=== PATIENT | female | born 1955 | race Two or more races ===

== ENCOUNTER → 2016-09-23 | Outpatient (REF) | payer MEDICARE ==
[~2016-09-23] MED LIST: FLUT1SPR2; GABA600T PO; GLIP10TA6 PO; LISI-542 PO; MUPI2OI TOP; TOUJ1.2I SQ
== END ==
LOC: M SFHCLERA 09:10
PROVIDERS: ATTEND Family Medicine
DX: L98.499 Non-pressure chronic ulcer of skin of other sites with unspecified severity (principal); E11.42 Type 2 diabetes mellitus with diabetic polyneuropathy
CPT/HCPCS: 87070; 87077; G0463

== ENCOUNTER 2016-09-28 14:28 | Emergency (ER) | payer MEDICARE ==
[~2016-09-28] VITALS: Ht 165.1 cm; Wt 90.3 kg
[2016-09-28 14:51] VITALS: BP 147/75
[2016-09-28] MEDS ORDERED: MUPI2OI TOP (14:56)
[2016-09-28] MEDS ORDERED: LISI-542 PO (14:56)
[2016-09-28] MEDS ORDERED: FLUT1SPR2 (14:56)
[2016-09-28] MEDS ORDERED: GABA600T PO (14:56)
[2016-09-28] MEDS ORDERED: GLIP10TA6 PO (14:56)
[2016-09-28] MEDS ORDERED: TOUJ1.2I SQ (14:56)
[2016-09-28 15:00] VITALS: BP 133/57
[2016-09-28] MEDS ORDERED: NITROGLYCERIN 2% OINT 1 GM *U/D* PKT TOP ONE (15:00)
[2016-09-28] MEDS ORDERED: ONDANSETRON 4MG/2ML VIAL (J2405) IV ONE (15:00)
--- NOTE | 2016-09-28 15:46 | REP ---
Portable chest: Single view. History: Chest pain Comparison study: No comparison study. Findings: EKG monitoring electrodes overlie the chest. Oxygen tubing is seen. The lungs are well inflated and clear. Heart size is normal. Pulmonary vasculature is not increased. No significant bony abnormality is seen. Impression: No active disease. Signed by Juan Richardson MD 09/28/2016 03:37 P
[2016-09-28] MEDS: fentaNYL 100 MCG/2 ML INJECTION (J3010) IV PRN ×2 (15:48→16:05)
[2016-09-28] MEDS ORDERED: HYDROmorphone HCL 1 MG/ML SYRINGE (J1170) IV ONE (16:15)
[2016-09-28 16:16] LABS: BASO % 0.4 % (0.0-1.0); EOS # 0.1 K/mm3 (0.0-0.50); EOS % 1.4 % (0.0-3.0); LARGE UNSTAINED CELL # 0.1 K/mm3 (0.0-0.4); LARGE UNSTAINED CELL % 1.3 % (0.0-4.0); LYMPH # 2.7 K/mm3 (1.5-4.5); LYMPH % 24.9 % (24.0-44.0); MEAN CORPUSCULAR HEMOGLOBIN 30.3 pg (27.0-33.0); MEAN CORPUSCULAR HGB CONC 33.2 g/dl (32.0-36.5); MEAN CORPUSCULAR VOLUME 91.2 fl (80.0-96.0); MONO # 0.3 K/mm3 (0.0-0.8); MONO % 3.2 % (0.0-5.0); NEUTROPHILS # 7.1 K/mm3 (1.8-7.7); PLATELET COUNT, AUTOMATED 208 k/mm3 (150-450); RED CELL DISTRIBUTION WIDTH 13.8 % (11.5-14.5); WHITE BLOOD COUNT 10.2 K/mm3 (4.0-10.0)
[2016-09-28 16:40] LABS: ALBUMIN 3.2 GM/DL (3.2-5.2); ALBUMIN/GLOBULIN RATIO 0.94 (1.00-1.93); BILIRUBIN,DIRECT 0.1 MG/DL (0.0-0.2); BILIRUBIN,TOTAL 0.3 MG/DL (0.2-1.0); CALCIUM LEVEL 8.5 MG/DL (8.8-10.2); CREATININE FOR GFR 1.07 MG/DL (0.55-1.02); GLOMERULAR FILTRATION RATE 55.5 (>45); POTASSIUM SERUM 5.1 MEQ/L (3.5-5.1); TOTAL PROTEIN 6.6 GM/DL (6.4-8.2)
[2016-09-28] MEDS ORDERED: CLOPIDOGREL 300 MG TAB (PLAVIX) PO ONE (17:00)
[2016-09-28] MEDS ORDERED: HEPARIN DRIP 25,000 UNITS in APPROPRIATE DILUENT 1 EA IV SCH (17:06)
[2016-09-28] MEDS ORDERED: HEPARIN SOD (PORCINE) 5000 UNITS/ML VIAL IV ONE (17:15)
--- NOTE | 2016-09-28 20:37 | ECGEPIP ---
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
--- NOTE | 2016-09-28 20:37 | ECGEPIP ---
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
--- NOTE | 2016-09-28 20:38 | ECGEPIP ---
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
== END 2016-09-28 18:00 | disposition short-term general hospital (02) ==
LOC: M ED 15:51
DX: I21.4 Non-ST elevation (NSTEMI) myocardial infarction (principal); F17.210 Nicotine dependence, cigarettes, uncomplicated
CPT/HCPCS: 36415; 71010; 80048; 80076; 82550; 82553; 83690; 83880; 84484; 85025; 85610; 93005; 93041; 96374; 96375; 96376; 99291; G0463; J1170; J2405; J3010

== ENCOUNTER → 2016-11-18 | Outpatient (REF) | payer MEDICARE ==
[2016-11-18 11:42] LABS: MEAN CORPUSCULAR HEMOGLOBIN 30.3 pg (27.0-33.0); MEAN CORPUSCULAR HGB CONC 32.9 g/dl (32.0-36.5); MEAN CORPUSCULAR VOLUME 92.3 fl (80.0-96.0); RED CELL DISTRIBUTION WIDTH 13.8 % (11.5-14.5); WHITE BLOOD COUNT 8.3 K/mm3 (4.0-10.0)
[2016-11-18 12:34] LABS: ALBUMIN 3.3 GM/DL (3.2-5.2); ALBUMIN/GLOBULIN RATIO 1.06 (1.00-1.93); ALKALINE PHOSPHATASE 91 U/L (45-117); ALT/SGPT 18 U/L (12-78); ANION GAP 6 MEQ/L (8-16); AST/SGOT 9 U/L (15-37); BILIRUBIN,TOTAL 0.3 MG/DL (0.2-1.0); BLOOD UREA NITROGEN 23 MG/DL (7-18); CALCIUM LEVEL 8.9 MG/DL (8.8-10.2); CARBON DIOXIDE LEVEL 30 MEQ/L (21-32); CHLORIDE LEVEL 105 MEQ/L (98-107); CHOLESTEROL LEVEL 178 MG/DL (<200); CREATININE FOR GFR 0.96 MG/DL (0.55-1.02); GLOMERULAR FILTRATION RATE > 60.0 (>45); GLUCOSE, FASTING 135 MG/DL (80-110); SODIUM LEVEL 141 MEQ/L (136-145); TOTAL PROTEIN 6.4 GM/DL (6.4-8.2); TRIGLYCERIDES LEVEL 115 MG/DL (<150)
[2016-11-18 12:44] LABS: POTASSIUM SERUM 5.3 MEQ/L (3.5-5.1)
== END ==
LOC: M SFHCLERA 09:37
PROVIDERS: ATTEND Family Medicine
DX: E11.42 Type 2 diabetes mellitus with diabetic polyneuropathy (principal); E78.2 Mixed hyperlipidemia
CPT/HCPCS: 80053; 80061; 81001; 82043; 83036; 85027; G0463

== ENCOUNTER → 2016-12-30 | Outpatient (REF) | payer MEDICARE, MEDICAID | LOC: M SFHCLERA 10:22 | PROVIDERS: ATTEND Family Medicine | DX: E11.69 Type 2 diabetes mellitus with other specified complication (principal); Z51.81 Encounter for therapeutic drug level monitoring; Z79.4 Long term (current) use of insulin | CPT/HCPCS: 82043; 83036; G0463 ==

== ENCOUNTER → 2017-03-04 | Outpatient (REF) | payer MEDICARE, MEDICAID | LOC: M LAB REF 13:32 | PROVIDERS: ATTEND Surgery | DX: L98.499 Non-pressure chronic ulcer of skin of other sites with unspecified severity (principal); S31.109D Unspecified open wound of abdominal wall, unspecified quadrant without penetration into peritoneal cavity, subsequent encounter; W18.30XA Fall on same level, unspecified, initial encounter; Y92.009 Unspecified place in unspecified non-institutional (private) residence as the place of occurrence of the external cause | CPT/HCPCS: 11100; 88305; G0463 ==

== ENCOUNTER → 2017-04-08 | Outpatient (REF) | payer MEDICARE, MEDICAID ==
[2017-04-08 16:37] LABS: CALCIUM LEVEL 8.9 MG/DL (8.8-10.2); CREATININE FOR GFR 1.47 MG/DL (0.55-1.02); GLOMERULAR FILTRATION RATE 38.3 (>45); POTASSIUM SERUM 4.7 MEQ/L (3.5-5.1)
== END ==
LOC: M SFHCLERA 11:39
PROVIDERS: ATTEND Family Medicine
DX: E11.65 Type 2 diabetes mellitus with hyperglycemia (principal); S31.109D Unspecified open wound of abdominal wall, unspecified quadrant without penetration into peritoneal cavity, subsequent encounter; L08.9 Local infection of the skin and subcutaneous tissue, unspecified; Z79.4 Long term (current) use of insulin; Z79.82 Long term (current) use of aspirin; X58.XXXD Exposure to other specified factors, subsequent encounter; Y92.9 Unspecified place or not applicable; Y93.9 Activity, unspecified; Y99.9 Unspecified external cause status
CPT/HCPCS: 80048; 83036; 97597; G0463

== ENCOUNTER → 2017-04-15 | Outpatient (CLI) | payer MEDICARE, MEDICAID ==
--- NOTE | 2017-04-15 12:55 | REPMRS ---
Patient History The patient states she has not had a clinical breast exam in over a year. Patient is postmenopausal. Family history of breast cancer in maternal aunt. Digital Mammo Screening Bilat: April 15, 2017 - Exam #: [id number] Bilateral CC and MLO view(s) were taken. Technologist: Anel Cordova, Technologist Prior study comparison: 2003, bilateral mammogram performed at [facility]. FINDINGS: The breast tissue is almost entirely fat. The patient states that there are no palpable abnormalities or other breast complaints. The parenchyma is predominately fat density. There has been no change in the appearance of the mammogram from the prior studies. There is no interval development of dominant mass, areas of architectural distortion, or clustered microcalcification typical of malignancy. ASSESSMENT: BI-RADS/ACR category 1 mammogram. Negative. Recommendation Routine screening mammogram in 1 year (for women over age 40). This mammogram was interpreted with the aid of an FDA-approved computer-aided dectection system. A. Negative x-ray reports should not delay biopsy if a dominant or clinically suspicious mass is present. B. Not all cancers are identified by mammography. C. Adenosis and dense breast may obscure an underlying neoplasm. Electronically Signed By: Osbaldo Holman M.D. 04/15/17 [id number]
== END ==
LOC: M RAD 11:36
PROVIDERS: ATTEND Family Medicine
DX: Z12.31 Encounter for screening mammogram for malignant neoplasm of breast (principal); E11.65 Type 2 diabetes mellitus with hyperglycemia; Z78.0 Asymptomatic menopausal state; E11.622 Type 2 diabetes mellitus with other skin ulcer; S31.109D Unspecified open wound of abdominal wall, unspecified quadrant without penetration into peritoneal cavity, subsequent encounter; X58.XXXD Exposure to other specified factors, subsequent encounter; Y92.9 Unspecified place or not applicable
CPT/HCPCS: 11042; G0202

== ENCOUNTER → 2017-05-01 | Outpatient (REF) | payer MEDICARE, MEDICAID ==
[2017-05-01 12:33] LABS: CREATININE FOR GFR 1.06 MG/DL (0.55-1.02); GLOMERULAR FILTRATION RATE 55.9 (>45); POTASSIUM SERUM 4.8 MEQ/L (3.5-5.1)
== END ==
LOC: M SFHCLERA 08:56
PROVIDERS: ATTEND Family Medicine
DX: N28.9 Disorder of kidney and ureter, unspecified (principal); E86.0 Dehydration

== ENCOUNTER 2017-08-24 15:52 | Emergency (ER) | payer MEDICARE, MEDICAID ==
[2017-08-24] MEDS: IPRATROPIUM 0.5MG/ALBUTEROL 2.5MG INH SOL UD 3ML (DUONEB)(J7620) NEB (18:36)
[2017-08-24] MEDS: predniSONE 20 MG TAB PO (19:45)
[2017-08-24] MEDS: AZITHROMYCIN 250 MG TAB PO (19:45)
[2017-08-24] MEDS: ALBUTEROL 90 MCG/ACT 8GM HFA INHALER INH (20:12)
== END 2017-08-24 20:18 | disposition home or self-care (01) ==
LOC: M ED 15:52
DX: J20.9 Acute bronchitis, unspecified (principal); I25.10 Atherosclerotic heart disease of native coronary artery without angina pectoris; I25.2 Old myocardial infarction; E78.9 Disorder of lipoprotein metabolism, unspecified; E11.9 Type 2 diabetes mellitus without complications; Z87.891 Personal history of nicotine dependence; Z79.899 Other long term (current) drug therapy; Z79.02 Long term (current) use of antithrombotics/antiplatelets; Z79.4 Long term (current) use of insulin; Z79.82 Long term (current) use of aspirin
CPT/HCPCS: 71046

== ENCOUNTER → 2017-11-30 | Outpatient (CLI) | payer MEDICARE, MEDICAID | LOC: M LRY 12:59 | DX: S99.922A Unspecified injury of left foot, initial encounter (principal); M19.072 Primary osteoarthritis, left ankle and foot; X58.XXXA Exposure to other specified factors, initial encounter; Y92.9 Unspecified place or not applicable; Y93.9 Activity, unspecified | CPT/HCPCS: 73660; G0463 ==

== ENCOUNTER → 2018-03-24 | Outpatient (REF) | payer MEDICARE, MEDICAID ==
[2018-03-24 11:43] LABS: BASO % 0.2 % (0.0-1.0); EOS # 0.1 10^3/uL (0.0-0.50); EOS % 1.1 % (0.0-3.0); HEMATOCRIT 43.1 % (36.0-47.0); IMMATURE GRANULOCYTE % 0.6 % (0-3.0); LYMPH # 2.2 10^3/uL (1.5-4.5); MEAN CORPUSCULAR HEMOGLOBIN 30.5 pg (27.0-33.0); MEAN CORPUSCULAR HGB CONC 32.5 g/dl (32.0-36.5); MEAN CORPUSCULAR VOLUME 93.9 fl (80.0-96.0); MONO # 0.7 10^3/uL (0.0-0.8); MONO % 5.8 % (0.0-5.0); NEUTROPHILS # 9.1 10^3/uL (1.8-7.7); NEUTROPHILS % 74.3 % (36.0-66.0); PLATELET COUNT, AUTOMATED 250 10^3/uL (150-450); RED BLOOD COUNT 4.59 10^6/uL (4.00-5.40); RED CELL DISTRIBUTION WIDTH 13.9 % (11.5-14.5); WHITE BLOOD COUNT 12.3 10^3/uL (4.0-10.0)
[2018-03-24 12:02] LABS: ESTIMATED AVERAGE GLUCOSE 258 MG/DL (60-110); HEMOGLOBIN A1c 10.6 %
[2018-03-24 12:09] LABS: ALBUMIN 3.1 GM/DL (3.2-5.2); ALBUMIN/GLOBULIN RATIO 0.94 (1.00-1.93); ALKALINE PHOSPHATASE 107 U/L (45-117); ALT/SGPT 13 U/L (12-78); ANION GAP 7 MEQ/L (8-16); AST/SGOT 8 U/L (7-37); BILIRUBIN,TOTAL 0.4 MG/DL (0.2-1.0); BLOOD UREA NITROGEN 16 MG/DL (7-18); CALCIUM LEVEL 8.9 MG/DL (8.8-10.2); CARBON DIOXIDE LEVEL 29 MEQ/L (21-32); CHLORIDE LEVEL 107 MEQ/L (98-107); CHOLESTEROL LEVEL 179 MG/DL (<200); CHOLESTEROL RISK RATIO 5.966 (<5); CREATININE FOR GFR 1.03 MG/DL (0.55-1.30); GLOMERULAR FILTRATION RATE 57.6 (>45); GLUCOSE, FASTING 162 MG/DL (70-100); HDL CHOLESTEROL 30 MG/DL (>40); LDL CHOLESTEROL 96 MG/DL (<100); NON-HDL-C 149 MG/DL; POTASSIUM SERUM 4.8 MEQ/L (3.5-5.1); SODIUM LEVEL 143 MEQ/L (136-145); TOTAL PROTEIN 6.4 GM/DL (6.4-8.2); TRIGLYCERIDES LEVEL 266 MG/DL (<150)
[2018-03-24 22:38] LABS: MAU/CREAT RATIO 45.5 MCG/MG (0.0-30.0)
== END ==
LOC: M SFHCLERA 08:44
DX: E11.42 Type 2 diabetes mellitus with diabetic polyneuropathy (principal)
CPT/HCPCS: 84443

== ENCOUNTER → 2018-04-26 | Outpatient (REF) | payer MEDICARE, MEDICAID | LOC: M LAB REF 18:30 | DX: L98.491 Non-pressure chronic ulcer of skin of other sites limited to breakdown of skin (principal) | CPT/HCPCS: 88305 ==

== ENCOUNTER → 2018-05-13 | Outpatient (REF) | payer MEDICARE, MEDICAID ==
[2018-05-13 12:42] LABS: ESTIMATED AVERAGE GLUCOSE 200 MG/DL (60-110); HEMOGLOBIN A1c 8.6 %
== END ==
LOC: M SFHCLERA 09:34
DX: E11.42 Type 2 diabetes mellitus with diabetic polyneuropathy (principal)
CPT/HCPCS: 83036

== ENCOUNTER 2018-05-24 07:15 | Inpatient (IN) | payer MEDICARE, MEDICAID ==
[~2018-05-24 07:15] MED LIST changes: -FLUT1SPR2; -GABA600T PO; -GLIP10TA6 PO; -LISI-542 PO; +LR 1,000 ML IV; -MUPI2OI TOP; -TOUJ1.2I SQ
[2018-05-24] MEDS ORDERED: MIDAZOLAM INJ 2 MG/2 ML VIAL (J2250) As Ordered (07:52)
[2018-05-24] MEDS ORDERED: LIDOCAINE 2% INJ 100 MG/5 ML SDV (FOR ANES.) As Ordered (07:52)
[2018-05-24] MEDS ORDERED: fentaNYL 100 MCG/2 ML INJECTION (J3010) As Ordered (07:52)
[2018-05-24] MEDS ORDERED: PROPOFOL 200 MG/20 ML VIAL As Ordered (07:52)
[2018-05-24 08:17] LABS: BEDSIDE GLUCOSE 92 MG/DL (80-115)
[2018-05-24] MEDS ORDERED: PHENYLEPHRINE INJ 10MG/ML VIAL (J2370) As Ordered ×2 (08:22→11:01)
[2018-05-24 09:57] LABS: HEMATOCRIT 38.4 % (36.0-47.0); HEMOGLOBIN 12.4 g/dl (12.0-15.5); MEAN CORPUSCULAR HEMOGLOBIN 29.6 pg (27.0-33.0); MEAN CORPUSCULAR HGB CONC 32.3 g/dl (32.0-36.5); MEAN CORPUSCULAR VOLUME 91.6 fl (80.0-96.0); PLATELET COUNT, AUTOMATED 262 10^3/uL (150-450); RED BLOOD COUNT 4.19 10^6/uL (4.00-5.40); RED CELL DISTRIBUTION WIDTH 13.7 % (11.5-14.5); WHITE BLOOD COUNT 12.4 10^3/uL (4.0-10.0)
[2018-05-24 10:11] LABS: PROTHROMBIN TIME 13.3 SECONDS (12.1-14.4)
[2018-05-24 10:27] LABS: ANION GAP 6 MEQ/L (8-16); BLOOD UREA NITROGEN 19 MG/DL (7-18); CALCIUM LEVEL 8.5 MG/DL (8.8-10.2); CARBON DIOXIDE LEVEL 29 MEQ/L (21-32); CHLORIDE LEVEL 107 MEQ/L (98-107); CREATININE FOR GFR 1.01 MG/DL (0.55-1.30); GLOMERULAR FILTRATION RATE 58.9 (>45); GLUCOSE, FASTING 82 MG/DL (70-100); POTASSIUM SERUM 4.5 MEQ/L (3.5-5.1); SODIUM LEVEL 142 MEQ/L (136-145)
[2018-05-24] MEDS ORDERED: ETOMIDATE INJ 20MG/10ML VIAL As Ordered (10:38)
[2018-05-24] MEDS ORDERED: PHENYLephrine HCL 500 MCG/5 ML (100MCG/ML) SYRINGE (J2370) As Ordered (10:46)
[2018-05-24] MEDS ORDERED: HYDROmorphone HCL 2 MG/ML 1ML VIAL (J1170) As Ordered (10:56)
[2018-05-24] MEDS ORDERED: ROCURONIUM BROMIDE 50 MG/5 ML VIAL As Ordered ×2 (11:05→12:34)
[2018-05-24] MEDS ORDERED: SUGAMMADEX SODIUM 500 MG/5 ML VIAL (BRIDION) As Ordered ×2 (11:06→13:57)
[2018-05-24] MEDS ORDERED: ePHEDrine SULFATE 25 MG/5 ML(5MG/ML) SYRINGE As Ordered (11:07)
[2018-05-24] MEDS ORDERED: CALCIUM CHLORIDE 10% 1 GM/10 ML SYR As Ordered (11:08)
[2018-05-24] MEDS: BACITRACIN PWD 50,000 UNITS VIAL As Ordered (11:36)
[2018-05-24] MEDS ORDERED: VASOPRESSIN INJ 20 UNITS/ML VIAL As Ordered (12:26)
[2018-05-24] MEDS ORDERED: dexameTHASONE 4 MG/ML 1ML VIAL (J1100) As Ordered (12:57)
[2018-05-24] MEDS ORDERED: ONDANSETRON 4MG/2ML VIAL (J2405) As Ordered (13:52)
[2018-05-24] MEDS ORDERED: ONDANSETRON 4MG/2ML VIAL (J2405) IV (14:30)
[2018-05-24] MEDS ORDERED: MEPERIDINE INJ 25 MG/ML VIAL (J2175) IV (14:30)
[2018-05-24] MEDS: LR 1,000 ML IV ×3 (14:30→21:24)
[2018-05-24] MEDS ORDERED: fentaNYL 100 MCG/2 ML INJECTION (J3010) IV (14:30)
[2018-05-24] MEDS ORDERED: PERCOCET 5MG/325MG TAB PO (14:30)
[2018-05-24] MEDS ORDERED: METOCLOPRAMIDE INJ 10MG/2ML VIAL (J2765) IV (14:30)
[2018-05-24] MEDS ORDERED: MORPHINE 4 MG/ML 1ML VIAL/SYRINGE (J2270) IV (15:00)
[2018-05-24 15:03] LABS: BEDSIDE GLUCOSE 141 MG/DL (80-115)
[2018-05-24 16:48] LABS: BEDSIDE GLUCOSE 151 MG/DL (80-115)
[2018-05-24] MEDS ORDERED: DEXTROSE 50% 50 ML SYRINGE IV (17:15)
[2018-05-24] MEDS ORDERED: GLUCOSE 4 GM CHEW TABLET PO (17:15)
[2018-05-24] MEDS ORDERED: GLUCAGON FOR INJ 1 MG VIAL (J1610) SC (17:15)
[2018-05-24] MEDS ORDERED: ceFAZolin 1GM INJ (J0690 PER 500MG) IM (17:15)
[2018-05-24] MEDS: HumaLOG INSULIN (NovoLOG) PER UNIT SC ×2 (18:02→20:41)
[2018-05-24] MEDS: ceFAZolin SOD 1 GM in D5W MINI-BAG PLUS 50 ML IV (18:40)
[2018-05-24 20:21] LABS: BEDSIDE GLUCOSE 270 MG/DL (80-115)
[2018-05-24] MEDS: METOPROLOL TART 25 MG TABLET PO (20:39)
[2018-05-24] MEDS: ATORVASTATIN 20 MG TAB PO (20:40)
[2018-05-24] MEDS: HEPARIN SOD (PORCINE) 5000 UNITS/ML VIAL SQ (20:56)
[2018-05-25] MEDS: SIMETHICONE 80 MG CHEW TAB PO (00:50)
[2018-05-25] MEDS: ceFAZolin SOD 1 GM in D5W MINI-BAG PLUS 50 ML IV (02:50)
[2018-05-25] MEDS: PERCOCET 5MG/325MG TAB PO ×3 (02:56→20:33)
[2018-05-25] MEDS: HEPARIN SOD (PORCINE) 5000 UNITS/ML VIAL SQ ×3 (05:09→20:32)
[2018-05-25 06:36] LABS: HEMATOCRIT 35.7 % (36.0-47.0); HEMOGLOBIN 11.7 g/dl (12.0-15.5); MEAN CORPUSCULAR HEMOGLOBIN 29.8 pg (27.0-33.0); MEAN CORPUSCULAR HGB CONC 32.8 g/dl (32.0-36.5); MEAN CORPUSCULAR VOLUME 91.1 fl (80.0-96.0); PLATELET COUNT, AUTOMATED 252 10^3/uL (150-450); RED BLOOD COUNT 3.92 10^6/uL (4.00-5.40); RED CELL DISTRIBUTION WIDTH 13.6 % (11.5-14.5); WHITE BLOOD COUNT 17.1 10^3/uL (4.0-10.0)
[2018-05-25 06:56] LABS: ANION GAP 5 MEQ/L (8-16); BLOOD UREA NITROGEN 18 MG/DL (7-18); CALCIUM LEVEL 8.7 MG/DL (8.8-10.2); CARBON DIOXIDE LEVEL 28 MEQ/L (21-32); CHLORIDE LEVEL 105 MEQ/L (98-107); CREATININE FOR GFR 0.98 MG/DL (0.55-1.30); GLOMERULAR FILTRATION RATE > 60.0 (>45); GLUCOSE, FASTING 205 MG/DL (70-100); MAGNESIUM LEVEL 1.7 MG/DL (1.8-2.4); POTASSIUM SERUM 5.1 MEQ/L (3.5-5.1); SODIUM LEVEL 138 MEQ/L (136-145)
[2018-05-25] MEDS: ASPIRIN 81 MG ENTERIC TAB PO (08:24)
[2018-05-25] MEDS: METOPROLOL TART 25 MG TABLET PO ×2 (08:24→20:33)
[2018-05-25] MEDS: HumaLOG INSULIN (NovoLOG) PER UNIT SC ×4 (08:25→20:19)
[2018-05-25] MEDS ORDERED: CETIRIZINE (ZyrTEC) 5 MG/5 ML UDC DYE FREE PO (09:00)
[2018-05-25] MEDS ORDERED: tiZANidine 4 MG TAB PO (10:00)
[2018-05-25] MEDS: MAGNESIUM OXIDE 400 MG TAB (MAG-OX) PO (10:27)
[2018-05-25] MEDS: PREGABALIN 75 MG CAP(LYRICA) PO ×2 (10:28→20:30)
[2018-05-25] MEDS: FUROSEMIDE 40 MG TAB PO (10:28)
[2018-05-25] MEDS: CIPROFLOXACIN 400 MG in APPROPRIATE DILUENT 1 EA IV ×2 (10:28→20:28)
[2018-05-25] MEDS: CETIRIZINE (ZyrTEC) 10 MG TAB PO (10:37)
[2018-05-25 11:38] LABS: BEDSIDE GLUCOSE 163 MG/DL (80-115)
[2018-05-25 16:50] LABS: BEDSIDE GLUCOSE 195 MG/DL (80-115)
[2018-05-25 20:29] LABS: BEDSIDE GLUCOSE 216 MG/DL (80-115)
[2018-05-25] MEDS: ATORVASTATIN 20 MG TAB PO (20:30)
[2018-05-25] MEDS: LEVEMIR (INSULIN DETEMIR) 1 UNITS/0.01ML SC (20:30)
[2018-05-25] MEDS: LISINOPRIL 5 MG TAB PO (20:32)
[2018-05-26] MEDS: HEPARIN SOD (PORCINE) 5000 UNITS/ML VIAL SQ (05:10)
[2018-05-26 06:28] LABS: HEMATOCRIT 35.6 % (36.0-47.0); HEMOGLOBIN 11.6 g/dl (12.0-15.5); MEAN CORPUSCULAR HEMOGLOBIN 29.9 pg (27.0-33.0); MEAN CORPUSCULAR HGB CONC 32.6 g/dl (32.0-36.5); MEAN CORPUSCULAR VOLUME 91.8 fl (80.0-96.0); PLATELET COUNT, AUTOMATED 243 10^3/uL (150-450); RED BLOOD COUNT 3.88 10^6/uL (4.00-5.40); RED CELL DISTRIBUTION WIDTH 13.7 % (11.5-14.5); WHITE BLOOD COUNT 11.9 10^3/uL (4.0-10.0)
[2018-05-26 06:45] LABS: ANION GAP 4 MEQ/L (8-16); BLOOD UREA NITROGEN 24 MG/DL (7-18); CALCIUM LEVEL 8.6 MG/DL (8.8-10.2); CARBON DIOXIDE LEVEL 30 MEQ/L (21-32); CHLORIDE LEVEL 105 MEQ/L (98-107); CREATININE FOR GFR 1.16 MG/DL (0.55-1.30); GLOMERULAR FILTRATION RATE 50.2 (>45); GLUCOSE, FASTING 194 MG/DL (70-100); MAGNESIUM LEVEL 1.8 MG/DL (1.8-2.4); POTASSIUM SERUM 4.7 MEQ/L (3.5-5.1); SODIUM LEVEL 139 MEQ/L (136-145)
[2018-05-26] MEDS: PREGABALIN 75 MG CAP(LYRICA) PO (08:41)
[2018-05-26] MEDS: FUROSEMIDE 40 MG TAB PO (08:41)
[2018-05-26] MEDS: CETIRIZINE (ZyrTEC) 10 MG TAB PO (08:41)
[2018-05-26] MEDS: ASPIRIN 81 MG ENTERIC TAB PO (08:41)
[2018-05-26] MEDS: HumaLOG INSULIN (NovoLOG) PER UNIT SC (08:43)
[2018-05-26] MEDS: METOPROLOL TART 25 MG TABLET PO (08:43)
[2018-05-26] MEDS: CIPROFLOXACIN 400 MG in APPROPRIATE DILUENT 1 EA IV (08:44)
== END 2018-05-26 11:31 | disposition home or self-care (01) | DRG 858 ==
LOC: M OR 07:15 → M MSPAV 15:45
PROVIDERS: Plastic Surgery Surgery of the Hand
PROC: 0WBF0ZZ Excision of Abdominal Wall, Open Approach (ICD-10-PCS; principal; 2018-05-24 08:45)
DX: T81.49XA Infection following a procedure, other surgical site, initial encounter (principal); L98.491 Non-pressure chronic ulcer of skin of other sites limited to breakdown of skin; M79.3 Panniculitis, unspecified; E11.622 Type 2 diabetes mellitus with other skin ulcer; Z79.899 Other long term (current) drug therapy; Z88.5 Allergy status to narcotic agent; E11.40 Type 2 diabetes mellitus with diabetic neuropathy, unspecified; M19.90 Unspecified osteoarthritis, unspecified site; I25.2 Old myocardial infarction; I10 Essential (primary) hypertension; Z87.891 Personal history of nicotine dependence; I25.10 Atherosclerotic heart disease of native coronary artery without angina pectoris; E78.5 Hyperlipidemia, unspecified; L90.5 Scar conditions and fibrosis of skin; Y83.8 Other surgical procedures as the cause of abnormal reaction of the patient, or of later complication, without mention of misadventure at the time of the procedure

== ENCOUNTER → 2018-07-29 | Outpatient (REF) | payer MEDICARE, MEDICAID ==
[~2018-07-29] MED LIST changes: +ASPI1TAB PO; +ASPI325T25 PO; +ATOR40TA75 PO; +BASA100I SC; +CETI10CH PO; +CIPR500T3 PO; +CLOP75TA2 PO; +FLUT1SPR2; +FURO40TA2 PO; +GABA600T4 PO; +GLIP10TA6 PO; +LISI-542 PO; -LR 1,000 ML IV; +LYRI75CA PO; +METF500T4 PO; +METO1TAB87 PO; +MUPI2OI TOP; +NITR0.4S14 SL; +PERCOCET PO; +PRED10TA2 PO; +PROAAER10 INH; +TIZA4CAP PO; +TIZANIDINE PO; +TOUJ1.2I SQ; +ZITHTAB PO
== END ==
LOC: M LAB REF 16:46
PROVIDERS: ATTEND Plastic Surgery Surgery of the Hand
DX: M54.07 Panniculitis affecting regions of neck and back, lumbosacral region (principal)

== ENCOUNTER → 2018-08-17 | Outpatient (REF) | payer MEDICARE, MEDICAID ==
[2018-08-17 19:04] LABS: HEMOGLOBIN A1c 8.8 %
== END ==
LOC: M SFHCLERA 14:37
PROVIDERS: ATTEND Nurse Practitioner Family
DX: E11.42 Type 2 diabetes mellitus with diabetic polyneuropathy (principal)
CPT/HCPCS: 83036; G0463

== ENCOUNTER 2018-11-20 18:54 | Emergency (ER) | payer MEDICARE, MEDICAID ==
[~2018-11-20] VITALS: Ht 162.6 cm; Wt 84.5 kg
[~2018-11-20 18:54] MED LIST changes: +ASPI-255 PO; -ASPI1TAB PO; -ASPI325T25 PO; +ASPI81TA26 PO
[2018-11-20 20:01] LABS: HEMATOCRIT 39.9 % (36.0-47.0); HEMOGLOBIN 13.1 g/dl (12.0-15.5); MEAN CORPUSCULAR HEMOGLOBIN 30.3 pg (27.0-33.0); MEAN CORPUSCULAR HGB CONC 32.8 g/dl (32.0-36.5); MEAN CORPUSCULAR VOLUME 92.1 fl (80.0-96.0); PLATELET COUNT, AUTOMATED 209 10^3/uL (150-450); RED BLOOD COUNT 4.33 10^6/uL (4.00-5.40); WHITE BLOOD COUNT 10.3 10^3/uL (4.0-10.0)
[2018-11-20 20:32] LABS: ALBUMIN 2.8 GM/DL (3.2-5.2); ALT/SGPT 15 U/L (12-78); BILIRUBIN,DIRECT 0.1 MG/DL (0.0-0.2); BILIRUBIN,TOTAL 0.3 MG/DL (0.2-1.0); BLOOD UREA NITROGEN 19 MG/DL (7-18); CALCIUM LEVEL 8.3 MG/DL (8.8-10.2); CARBON DIOXIDE LEVEL 24 MEQ/L (21-32); CHLORIDE LEVEL 103 MEQ/L (98-107); CREATININE FOR GFR 0.96 MG/DL (0.55-1.30); GLOMERULAR FILTRATION RATE > 60.0 (>45); GLUCOSE, FASTING 516 MG/DL (70-100); POTASSIUM SERUM 4.8 MEQ/L (3.5-5.1); SODIUM LEVEL 134 MEQ/L (136-145); TOTAL PROTEIN 6.1 GM/DL (6.4-8.2)
[2018-11-20 20:37] LABS: ERYTHROCYTE SEDIMENTATION RATE 30 mm/hr (0-30)
[2018-11-20] MEDS ORDERED: HumuLIN R (REGULAR) INSULIN (NovoLIN R) **100U/ML** PER UNIT IV ONE (21:00)
[2018-11-20] MEDS ORDERED: NS 1,000 ML IV SCH (21:00)
[2018-11-20] MEDS ORDERED: LIDOCAINE W/EPINEPHRINE 1% 20ML VIAL SC ONE (21:15)
[2018-11-20] MEDS ORDERED: VANCOMYCIN HCL 750 MG, VIAL MATE ADAPTER 1 EACH in D5W 250 ML IV ONE (21:15)
[2018-11-20] MEDS ORDERED: VANCOMYCIN 750 MG/25 ML VIAL (J3370) As Ordered ONE (21:28)
[2018-11-20] MEDS ORDERED: VANCOMYCIN HCL 750 MG, VIAL MATE ADAPTER 1 EACH in NS 250 ML IV ONE (21:30)
[2018-11-20] MEDS ORDERED: DOXY100C37 PO (21:40)
[2018-11-20 22:34] VITALS: BP 122/62
--- NOTE | 2018-11-21 08:10 | REP ---
RIGHT FOOT SERIES: TWO VIEWS. HISTORY: Rule out foreign body. Comparison radiographs are from January 06, 2013. FINDINGS: Overall mineralization pattern is normal. There is an area of soft tissue swelling laterally about the proximal end of the 5th metatarsal. Plantar calcaneal spurring is noted. There is mild Achilles calcaneal spurring. No evidence of opaque foreign body is seen. Lateral view shows dorsal talonavicular spurring, unchanged. IMPRESSION: No opaque foreign body or fracture. Heel spurring and midfoot spurring. Electronically Signed by Juan Richardson MD 11/21/2018 09:21 A
== END 2018-11-20 22:45 | disposition home or self-care (01) ==
LOC: M ED 18:54
DX: L02.611 Cutaneous abscess of right foot (principal); L03.115 Cellulitis of right lower limb; I11.9 Hypertensive heart disease without heart failure; E11.9 Type 2 diabetes mellitus without complications; Z95.5 Presence of coronary angioplasty implant and graft; Z91.048 Other nonmedicinal substance allergy status; Z79.899 Other long term (current) drug therapy; Z79.4 Long term (current) use of insulin; Z79.82 Long term (current) use of aspirin
CPT/HCPCS: 10060; 36415; 73620; 80048; 80076; 85027; 85652; 87070; 87077; 87186; 96365; 96375; 99284; J3370

== ENCOUNTER 2019-04-27 13:58 | Emergency (ER) | payer MEDICARE, MEDICAID ==
[~2019-04-27] VITALS: Ht 160 cm; Wt 89.1 kg
[~2019-04-27 13:58] MED LIST changes: +DOXY100C37 PO; +METF-791 PO; -METF500T4 PO
--- NOTE | 2019-04-27 16:01 | REP ---
REASON: Pain and swelling. TECHNIQUE: Multiple ultrasonographic images of the deep venous structures of the thigh were obtained from the common femoral vein to the popliteal vein along with Doppler interrogation and color flow Doppler images. FINDINGS: There is no abnormal echogenic material seen within any of the visualized deep venous structures that would suggest acute thrombosis. Coaptation is unremarkable throughout. Doppler interrogation shows an expected response to respiratory variability and augmentation. The color flow images show what appears to be a normal vascular pattern throughout. IMPRESSION: There is no ultrasonographic evidence of deep venous thrombosis involving any of the visualized deep venous structures of the right thigh, as described above. Electronically Signed by Arnol Paulson DO 04/28/2019 10:44 A
[2019-04-27 16:54] LABS: BASO # 0.1 10^3/uL (0.0-0.2); BASO % 0.5 % (0.0-1.0); EOS # 0.1 10^3/uL (0.0-0.5); EOS % 0.9 % (0.0-3.0); HEMATOCRIT 38.5 % (36.0-47.0); HEMOGLOBIN 12.5 g/dl (12.0-15.5); LYMPH # 3.4 10^3/uL (1.5-5.0); LYMPH % 28.9 % (24.0-44.0); MEAN CORPUSCULAR HEMOGLOBIN 30.7 pg (27.0-33.0); MEAN CORPUSCULAR HGB CONC 32.5 g/dl (32.0-36.5); MEAN CORPUSCULAR VOLUME 94.6 fl (80.0-96.0); MONO # 0.7 10^3/uL (0.0-0.8); MONO % 6.3 % (0.0-5.0); NEUTROPHILS # 7.4 10^3/uL (1.5-8.5); NEUTROPHILS % 63.1 % (36.0-66.0); PLATELET COUNT, AUTOMATED 225 10^3/uL (150-450); RED BLOOD COUNT 4.07 10^6/uL (4.00-5.40); WHITE BLOOD COUNT 11.8 10^3/uL (4.0-10.0)
[2019-04-27 17:21] LABS: ALBUMIN 3.4 GM/DL (3.2-5.2); ALT/SGPT 21 U/L (12-78); BILIRUBIN,DIRECT < 0.1 MG/DL (0.0-0.2); BILIRUBIN,TOTAL 0.3 MG/DL (0.2-1.0); BLOOD UREA NITROGEN 32 MG/DL (7-18); C REACTIVE PROTEIN QUANTITATIV 0.57 MG/DL (0.00-0.30); CARBON DIOXIDE LEVEL 31 MEQ/L (21-32); CHLORIDE LEVEL 106 MEQ/L (98-107); CREATININE FOR GFR 1.18 MG/DL (0.55-1.30); GLOMERULAR FILTRATION RATE 49.1 (>45); GLUCOSE, FASTING 181 MG/DL (70-100); POTASSIUM SERUM 4.4 MEQ/L (3.5-5.1); SODIUM LEVEL 141 MEQ/L (136-145); TOTAL PROTEIN 6.8 GM/DL (6.4-8.2)
[2019-04-27 17:27] LABS: ERYTHROCYTE SEDIMENTATION RATE 43 mm/hr (0-30)
[2019-04-27] MEDS ORDERED: MACR100C43 PO (17:52)
[2019-04-27] MEDS ORDERED: NORCO, ANEXSIA 5/325MG TABLET (HYDROcodone/ACETAMINOPHEN) PO ONE (18:00)
[2019-04-27 18:38] VITALS: BP 146/73
== END 2019-04-27 19:10 | disposition home or self-care (01) ==
LOC: M ED 13:58
DX: M25.561 Pain in right knee (principal); N39.0 Urinary tract infection, site not specified; E11.9 Type 2 diabetes mellitus without complications; I10 Essential (primary) hypertension; E78.5 Hyperlipidemia, unspecified; I25.2 Old myocardial infarction; Z95.5 Presence of coronary angioplasty implant and graft; Z79.899 Other long term (current) drug therapy; Z79.84 Long term (current) use of oral hypoglycemic drugs; Z79.82 Long term (current) use of aspirin; F17.210 Nicotine dependence, cigarettes, uncomplicated

== ENCOUNTER 2019-05-03 01:43 | Inpatient (IN) | payer MEDICARE, MEDICAID ==
[~2019-05-03] VITALS: Ht 160 cm; Wt 89.1 kg
[~2019-05-03 01:43] MED LIST changes: +MACR100C43 PO
[2019-05-03 02:26] LABS: BASO % 0.3 % (0.0-1.0); EOS # 0.1 10^3/uL (0.0-0.5); EOS % 1.3 % (0.0-3.0); HEMATOCRIT 35.1 % (36.0-47.0); HEMOGLOBIN 11.6 g/dl (12.0-15.5); LYMPH # 0.6 10^3/uL (1.5-5.0); LYMPH % 9.2 % (24.0-44.0); MEAN CORPUSCULAR HEMOGLOBIN 30.2 pg (27.0-33.0); MEAN CORPUSCULAR VOLUME 91.4 fl (80.0-96.0); MONO # 0.5 10^3/uL (0.0-0.8); MONO % 7.4 % (0.0-5.0); NEUTROPHILS % 81.3 % (36.0-66.0); PLATELET COUNT, AUTOMATED 146 10^3/uL (150-450); RED BLOOD COUNT 3.84 10^6/uL (4.00-5.40); WHITE BLOOD COUNT 6.1 10^3/uL (4.0-10.0)
[2019-05-03] MEDS ORDERED: CLOP75TA2 PO (02:35)
[2019-05-03 02:53] LABS: BLOOD UREA NITROGEN 31 MG/DL (7-18); CALCIUM LEVEL 8.2 MG/DL (8.8-10.2); CARBON DIOXIDE LEVEL 26 MEQ/L (21-32); CHLORIDE LEVEL 105 MEQ/L (98-107); CK-MB VALUE MASS < 1.0 NG/ML (<3.6); CPK CREATINE PHOSPHOKINASE 45 U/L (26-192); CREATININE FOR GFR 1.62 MG/DL (0.55-1.30); GLOMERULAR FILTRATION RATE 34.1 (>45); GLUCOSE, FASTING 218 MG/DL (70-100); MB/CK RELATIVE INDEX 2.22 (< OR =4); POTASSIUM SERUM 4.4 MEQ/L (3.5-5.1); SODIUM LEVEL 140 MEQ/L (136-145); THYROID STIMULATING HORMONE 0.979 uIU/ML (0.358-3.740); TROPONIN I < 0.02 NG/ML (< 0.10)
[2019-05-03] MEDS ORDERED: NS 1,000 ML IV ONE (03:00)
--- NOTE | 2019-05-03 05:27 | REPVR ---
PROCEDURE INFORMATION: Exam: CT Abdomen And Pelvis Without Contrast Exam date and time: 05/03/2019 4:11 AM Clinical history: 64 years old, female; Abdominal pain; Generalized; Additional info: Ed, hypotension, eval for obstruction TECHNIQUE: Imaging protocol: Computed tomography of the abdomen and pelvis without contrast. Radiation optimization: All CT scans at this facility use at least one of these dose optimization techniques: automated exposure control; mA and/or kV adjustment per patient size (includes targeted exams where dose is matched to clinical indication); or iterative reconstruction. COMPARISON: No relevant prior studies available. FINDINGS: Lungs: Dependent subsegmental pulmonary atelectasis. Liver: Enlarged low attenuating liver, evidence of hepatic steatosis. Gallbladder and bile ducts: Cholecystectomy. Pancreas: Normal. No ductal dilation. Spleen: Normal. No splenomegaly. Adrenals: Left adrenal gland hypodense thickening. Kidneys and ureters: 2 cm exophytic left renal cyst. Stomach and bowel: Unremarkable. No obstruction. No mucosal thickening. Appendix: No evidence of appendicitis. Intraperitoneal space: Unremarkable. No free air. No significant fluid collection. Vasculature: Unremarkable. No abdominal aortic aneurysm. Lymph nodes: Unremarkable. No enlarged lymph nodes. Bladder: Unremarkable as visualized. Reproductive: Fallopian tube clips. Bones/joints: Moderate degenerative joint disease. Moderate spinal stenosis. Moderate to severe lower lumbar spinal stenosis. Soft tissues: Small left femoral fat protruding hernia. Abdominal wall hernia surgical changes. IMPRESSION: 1. No evidence of obstruction. 2. No acute abnormality. Electronically signed by: Leonardo Bales On 05/03/2019 05:27:34 AM
[2019-05-03] MEDS ORDERED: PIPERACILLIN/TAZOBACTAM SOD 3.375 GM in D5W MINI-BAG PLUS 50 ML IV ONE (06:15)
[2019-05-03] MEDS ORDERED: LIDOCAINE 1% MDV INJ 50 ML VIAL As Ordered ONE (06:32)
[2019-05-03] MEDS ORDERED: PHENYLEPHRINE INJ 10MG/ML VIAL (J2370) As Ordered ONE (06:33)
[2019-05-03] MEDS ORDERED: METF-723 PO (06:56)
[2019-05-03] MEDS ORDERED: EZET10TA21 PO (06:56)
[2019-05-03] MEDS ORDERED: TIZA4TAB4 PO (06:56)
[2019-05-03] MEDS ORDERED: CETI10TA4 PO (06:56)
[2019-05-03] MEDS ORDERED: MACR100C43 PO (07:50)
[2019-05-03] MEDS ORDERED: ACET-907 PO (07:50)
[2019-05-03] MEDS ORDERED: CLOPIDOGREL 75 MG TAB PO SCH (09:00)
--- NOTE | 2019-05-03 09:37 | REP ---
Single view chest: 05/03/2019. Indication: Syncope. Comparison: 09/28/2016. Findings: Mildly increased interstitial markings are noted bilaterally. There is no significant pleural effusion or pneumothorax. The cardiac silhouette is unremarkable. Impression: Findings suggest early CHF. Please correlate. Electronically Signed by Ramin Nunez DO 05/03/2019 09:28 A
[2019-05-03] MEDS: NS 1,000 ML IV SCH ×2 (09:43→21:11)
--- NOTE | 2019-05-03 10:14 | ECGEPIP ---
[facility] - ED Test Date: 2019-05-03 Pat Name: ALEKSANDRA CONTRERAS Department: Room: - Gender: Female Policy Value Calculator: MERLYN : 1955 Requested By: DAVID Faustin Order Number: [id number] Reading MD: Deepiak English Measurements Intervals [place] Rate: 77 P: 30 [place]: 159 QRS: -23 QRSD: 95 T: 7 QT: 410 QTc: 465 Interpretive Statements SINUS RHYTHM BORDERLINE LEFT AXIS DEVIATION MODERATE VOLTAGE CRITERIA FOR LVH, CONSIDER NORMAL VARIANT NSTTW abnormalities DECREASED RATE 09/28/16 Electronically Signed on 05-03-2019 10:14:19 EDT by Deepika English
[2019-05-03] MEDS ORDERED: GLUCOSE 4 GM CHEW TABLET PO PRN (10:15)
[2019-05-03] MEDS ORDERED: DEXTROSE 50% 50 ML SYRINGE IV PRN (10:15)
[2019-05-03] MEDS ORDERED: GLUCAGON FOR INJ 1 MG VIAL (J1610) SC PRN (10:15)
[2019-05-03] MEDS ORDERED: ACETAMINOPHEN TAB 650MG DOSE (2X325MG) PO PRN (10:15)
[2019-05-03] MEDS: PREGABALIN 75 MG CAP(LYRICA) PO SCH ×3 (10:47→21:11)
[2019-05-03] MEDS: DOCUSATE SODIUM 100 MG CAP PO SCH ×2 (10:47→21:00)
[2019-05-03] MEDS: ASPIRIN 81 MG ENTERIC TAB PO SCH (10:47)
[2019-05-03] MEDS: ENOXAPARIN 40 MG/0.4 ML SYRINGE (J1650) SC SCH (10:48)
[2019-05-03] MEDS: cefTRIAXone SOD 1 GM in D5W MINI-BAG PLUS 50 ML IV SCH (11:52)
[2019-05-03] MEDS: HumaLOG INSULIN (NovoLOG) PER UNIT SC SCH ×3 (11:52→21:00)
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
[2019-05-03 14:00] VITALS: BP 127/60
[2019-05-03 15:37] VITALS: BP_SYST 107; BP_SYST 121; BP_SYST 128; BP_DIAS 56; BP_DIAS 58
--- NOTE | 2019-05-03 19:48 | ECHO ---
DATE OF PROCEDURE: 05/03/2019 REFERRING PHYSICIAN: Amanda Hein INDICATION: Congestive heart failure. Height 160 cm, weight 89 kg. DIMENSIONS: IVS: 1.1 LV: 4.6 LVPW: 0.9 LA: 3.9 Aorta: 2.8 IVC: 1.3 Left atrial volume index: 17 Mitral E wave velocity: 84 A wave: 83 E prime septal: 6.4 E prime lateral: 9.5 FINDINGS: The study is somewhat limited technical quality, especially apical views were fair but parasternal and subcostal views were of good quality. The patient is in sinus rhythm. Left ventricle is normal size and systolic function, estimated ejection fraction (EF) around 60-65%. No segmental wall motion abnormalities are appreciated. Right ventricle is normal size and systolic function. Both atria appear normal. All four cardiac valves were reasonably well seen and appear normal. No pericardial effusion is noted. Inferior vena cava is normal size and appropriately collapses with respirations. Aortic root, aortic arch and visualized segment of abdominal aorta all appear normal. Doppler interrogation of aortic valve reveals no stenosis or insufficiency. Same applies for remaining three cardiac valves. Evaluation of diastolic function is complicated. Patient most likely has grade 2 diastolic dysfunction, yet left atrial size is normal. I believe at least mild form of diastolic dysfunction is present. CONCLUSIONS: 1. Study is of acceptable technical quality. 2. Normal left ventricular (LV) size and systolic function, probably mild diastolic dysfunction. 3. No significant valvular disease. 4. Normal central venous pressure. 5. Unable to estimate pulmonary artery pressure. COMMENT: Subacute bacterial endocarditis (SBE) prophylaxis is not recommended. The study is not overly suggestive of diagnosis of congestive heart failure.
[2019-05-03 20:00] VITALS: BP_SYST 109; BP_SYST 127; BP_SYST 140; BP_DIAS 54; BP_DIAS 63
[2019-05-03] MEDS ORDERED: tiZANidine 4 MG TAB PO SCH (21:00)
[2019-05-03] MEDS ORDERED: CETIRIZINE (ZyrTEC) 10 MG TAB PO SCH (21:00)
[2019-05-04 00:05] VITALS: BP 82/58
[2019-05-04 04:00] VITALS: BP_SYST 102; BP_SYST 107; BP_SYST 75; BP_DIAS 48; BP_DIAS 55
[2019-05-04] MEDS: NS 1,000 ML IV SCH (05:30)
[2019-05-04 06:45] LABS: HEMATOCRIT 30.7 % (36.0-47.0); HEMOGLOBIN 10.2 g/dl (12.0-15.5); MEAN CORPUSCULAR HEMOGLOBIN 30.7 pg (27.0-33.0); MEAN CORPUSCULAR HGB CONC 33.2 g/dl (32.0-36.5); MEAN CORPUSCULAR VOLUME 92.5 fl (80.0-96.0); PLATELET COUNT, AUTOMATED 137 10^3/uL (150-450); RED BLOOD COUNT 3.32 10^6/uL (4.00-5.40); WHITE BLOOD COUNT 3.6 10^3/uL (4.0-10.0)
[2019-05-04 07:16] LABS: CALCIUM LEVEL 8.5 MG/DL (8.8-10.2); CREATININE FOR GFR 1.17 MG/DL (0.55-1.30); GLOMERULAR FILTRATION RATE 49.6 (>45); POTASSIUM SERUM 3.9 MEQ/L (3.5-5.1)
[2019-05-04] MEDS: DOCUSATE SODIUM 100 MG CAP PO SCH ×2 (09:00→21:18)
[2019-05-04] MEDS: ASPIRIN 81 MG ENTERIC TAB PO SCH (09:10)
[2019-05-04] MEDS: HumaLOG INSULIN (NovoLOG) PER UNIT SC SCH ×4 (09:11→21:00)
[2019-05-04] MEDS: PREGABALIN 75 MG CAP(LYRICA) PO SCH ×3 (09:11→21:18)
[2019-05-04] MEDS: ENOXAPARIN 40 MG/0.4 ML SYRINGE (J1650) SC SCH (09:12)
[2019-05-04 09:22] LABS: HEMOGLOBIN A1c 8.3 %
[2019-05-04] MEDS: cefTRIAXone SOD 1 GM in D5W MINI-BAG PLUS 50 ML IV SCH (12:46)
[2019-05-04 12:50] VITALS: BP_SYST 138; BP_SYST 141; BP_SYST 157; BP_DIAS 64; BP_DIAS 65; BP_DIAS 67
[2019-05-04] MEDS ORDERED: COSYNTROPIN 0.25 MG/ML VIAL (J0834 PER 0.25MG) IV ONE (15:00)
[2019-05-04 15:38] VITALS: BP 140/65
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
[2019-05-04 20:00] VITALS: BP_SYST 155; BP_SYST 161; BP_SYST 174; BP_DIAS 65; BP_DIAS 67; BP_DIAS 73
[2019-05-05 04:00] VITALS: BP 153/65
[2019-05-05] MEDS ORDERED: COSYNTROPIN 0.25 MG/ML VIAL (J0834 PER 0.25MG) IV ONE (06:30)
[2019-05-05] MEDS: HumaLOG INSULIN (NovoLOG) PER UNIT SC SCH ×2 (07:30→12:37)
[2019-05-05 07:58] LABS: HEMOGLOBIN 10.7 g/dl (12.0-15.5); MEAN CORPUSCULAR HEMOGLOBIN 30.8 pg (27.0-33.0); MEAN CORPUSCULAR HGB CONC 33.4 g/dl (32.0-36.5); MEAN CORPUSCULAR VOLUME 92.2 fl (80.0-96.0); PLATELET COUNT, AUTOMATED 152 10^3/uL (150-450); RED BLOOD COUNT 3.47 10^6/uL (4.00-5.40)
[2019-05-05 08:18] LABS: BLOOD UREA NITROGEN 17 MG/DL (7-18); CALCIUM LEVEL 8.5 MG/DL (8.8-10.2); CARBON DIOXIDE LEVEL 26 MEQ/L (21-32); CHLORIDE LEVEL 112 MEQ/L (98-107); CREATININE FOR GFR 0.89 MG/DL (0.55-1.30); GLOMERULAR FILTRATION RATE > 60.0 (>45); GLUCOSE, FASTING 119 MG/DL (70-100); MAGNESIUM LEVEL 1.8 MG/DL (1.8-2.4); SODIUM LEVEL 143 MEQ/L (136-145)
[2019-05-05] MEDS: PREGABALIN 75 MG CAP(LYRICA) PO SCH (08:43)
[2019-05-05] MEDS: DOCUSATE SODIUM 100 MG CAP PO SCH (08:43)
[2019-05-05] MEDS: ENOXAPARIN 40 MG/0.4 ML SYRINGE (J1650) SC SCH (08:43)
[2019-05-05] MEDS: ASPIRIN 81 MG ENTERIC TAB PO SCH (08:43)
[2019-05-05] MEDS ORDERED: METOPROLOL TART 25 MG TABLET PO SCH (09:00)
[2019-05-05] MEDS ORDERED: CEFDINIR 300 MG CAP (OMNICEF) PO SCH (09:00)
[2019-05-05] MEDS ORDERED: CEFD300CAP PO (09:45)
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
[2019-05-05 10:44] VITALS: BP 153/65
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
== END 2019-05-05 15:12 | disposition home or self-care (01) | DRG 683 ==
LOC: M ED 01:43 → M ED INP 09:21 → M MS4PR 10:23
PROVIDERS: ADMIT Internal Medicine; ATTEND Internal Medicine
DX: N17.9 Acute kidney failure, unspecified (principal); N39.0 Urinary tract infection, site not specified; I95.1 Orthostatic hypotension; E11.65 Type 2 diabetes mellitus with hyperglycemia; E11.42 Type 2 diabetes mellitus with diabetic polyneuropathy; I11.0 Hypertensive heart disease with heart failure; I25.2 Old myocardial infarction; Z95.5 Presence of coronary angioplasty implant and graft; Z90.49 Acquired absence of other specified parts of digestive tract; Z87.891 Personal history of nicotine dependence; I50.9 Heart failure, unspecified; G62.9 Polyneuropathy, unspecified; M48.061 Spinal stenosis, lumbar region without neurogenic claudication; Z87.828 Personal history of other (healed) physical injury and trauma; J30.2 Other seasonal allergic rhinitis; Z80.0 Family history of malignant neoplasm of digestive organs; E66.9 Obesity, unspecified; Z68.34 Body mass index [BMI] 34.0-34.9, adult; R05 Cough; Z91.048 Other nonmedicinal substance allergy status; Z79.82 Long term (current) use of aspirin; Z79.899 Other long term (current) drug therapy; Z79.84 Long term (current) use of oral hypoglycemic drugs

== ENCOUNTER → 2019-12-22 | Outpatient (CLI) | payer MEDICARE, MEDICAID ==
[~2019-12-22] MED LIST changes: +ACET-907 PO; +CEFD300CAP PO; +CETI10TA4 PO; +EZET10TA21 PO; +METF-723 PO; -METF-791 PO; +METF-838 PO; +TIZA4TAB4 PO
--- NOTE | 2019-12-22 12:16 | REP ---
Right lower extremity Duplex Doppler venous ultrasound: Real time compression and duplex Doppler interrogation of the right lower extremity deep venous system is performed. The right common femoral, superficial femoral and popliteal veins are fully compressible with transducer pressure and demonstrate normal spontaneous and phasic flow, without evidence of deep venous thrombosis. Impression: No evidence of deep venous thrombosis of the right lower extremity femoral popliteal venous system.
== END ==
LOC: M WHC 11:17
PROVIDERS: ATTEND Family Medicine
DX: E11.65 Type 2 diabetes mellitus with hyperglycemia (principal); R60.0 Localized edema

== ENCOUNTER → 2019-12-22 | Outpatient (CLI) | payer MEDICARE, MEDICAID ==
[2019-12-22 14:04] LABS: ALBUMIN 2.9 GM/DL (3.2-5.2); ALT/SGPT 22 U/L (12-78); BILIRUBIN,TOTAL 0.4 MG/DL (0.2-1.0); BLOOD UREA NITROGEN 24 MG/DL (7-18); CALCIUM LEVEL 8.5 MG/DL (8.8-10.2); CARBON DIOXIDE LEVEL 29 MEQ/L (21-32); CHLORIDE LEVEL 106 MEQ/L (98-107); CHOLESTEROL LEVEL 187 MG/DL (<200); CHOLESTEROL RISK RATIO 6.925 (<5); GLOMERULAR FILTRATION RATE 53.2 (>45); GLUCOSE, FASTING 242 MG/DL (70-100); HDL CHOLESTEROL 27 MG/DL (>40); NON-HDL-C 160 MG/DL; POTASSIUM SERUM 4.9 MEQ/L (3.5-5.1); SODIUM LEVEL 140 MEQ/L (136-145); TRIGLYCERIDES LEVEL 472 MG/DL (<150)
[2019-12-22 14:33] LABS: HEMOGLOBIN A1c 9.6 %
[2019-12-22 14:48] LABS: MAU/CREAT RATIO 386.1 MCG/MG (0.0-30.0)
== END ==
LOC: M PLALAB 11:56
PROVIDERS: ATTEND Family Medicine
DX: E11.42 Type 2 diabetes mellitus with diabetic polyneuropathy (principal)
CPT/HCPCS: 36415; 80053; 80061; 82043; 83036; G0463

== ENCOUNTER 2020-03-28 16:43 | Emergency (ER) | payer MEDICARE, MEDICAID ==
[~2020-03-28] VITALS: Ht 160 cm; Wt 93.1 kg
[2020-03-28] MEDS ORDERED: TRAD5TAB (17:19)
[2020-03-28] MEDS ORDERED: ACETAMINOPHEN 500 MG TAB PO ONE (17:45)
--- NOTE | 2020-03-28 18:11 | REPVR ---
PROCEDURE INFORMATION: Exam: XR Left Hip with Pelvis when Performed Exam date and time: 03/28/2020 6:05 PM Age: 65 years old Clinical indication: Hip pain; Left hip; Additional info: Left hip pain TECHNIQUE: Imaging protocol: XR Left hip with pelvis when performed. Views: 2 or 3 views. COMPARISON: CT ABD PELVIS W/O CONTRAST 05/03/2019 4:19 AM FINDINGS: Bones/joints: Degenerative changes both hip joints. Soft tissues: Unremarkable. Gastrointestinal tract: There is increased feces throughout the colon consistent with constipation. IMPRESSION: 1. There is increased feces throughout the colon consistent with constipation. 2. Degenerative changes both hip joints. 3. No acute findings. Electronically signed by: Dash Reddy On 03/28/2020 18:11:20 PM
[2020-03-28 18:13] LABS: BASO % 0.2 % (0.0-1.0); EOS # 0.1 10^3/uL (0.0-0.5); EOS % 0.8 % (0.0-3.0); HEMATOCRIT 35.6 % (36.0-47.0); HEMOGLOBIN 11.7 g/dl (12.0-15.5); LYMPH # 2.3 10^3/uL (1.5-5.0); LYMPH % 22.2 % (24.0-44.0); MEAN CORPUSCULAR HEMOGLOBIN 29.8 pg (27.0-33.0); MEAN CORPUSCULAR HGB CONC 32.9 g/dl (32.0-36.5); MEAN CORPUSCULAR VOLUME 90.6 fl (80.0-96.0); MONO # 0.6 10^3/uL (0.0-0.8); MONO % 5.9 % (0.0-5.0); NEUTROPHILS # 7.4 10^3/uL (1.5-8.5); NEUTROPHILS % 70.3 % (36.0-66.0); PLATELET COUNT, AUTOMATED 224 10^3/uL (150-450); RED BLOOD COUNT 3.93 10^6/uL (4.00-5.40); WHITE BLOOD COUNT 10.5 10^3/uL (4.0-10.0)
[2020-03-28 18:35] LABS: CREATININE FOR GFR 1.2 MG/DL (0.55-1.30); POTASSIUM SERUM 4.6 MEQ/L (3.5-5.1)
--- NOTE | 2020-03-28 18:44 | REPVR ---
PROCEDURE INFORMATION: Exam: US Duplex Right Lower Extremity Veins, Limited Exam date and time: 03/28/2020 6:07 PM Age: 65 years old Clinical indication: Pain; Leg, lower; Right; Additional info: Rle edema, R/O dvt TECHNIQUE: Imaging protocol: Real-time Duplex ultrasound of the Right Lower Extremity with 2-D pulliam scale, color Doppler flow and spectral waveform analysis with image documentation. Limited exam was focused on the right lower extremity veins. COMPARISON: US DUPLEX EXTREMITY VEINS UNILAT 12/22/2019 11:36 AM FINDINGS: Right deep veins: Unremarkable. The common femoral, femoral, proximal profunda femoral and popliteal veins are patent without thrombus. Normal Doppler waveforms. Normal compressibility and/or augmentation response. Right superficial veins: Unremarkable. Saphenofemoral junction is patent without thrombus. Soft tissues: Unremarkable. IMPRESSION: No evidence of deep vein thrombosis. Electronically signed by: Dash Reddy On 03/28/2020 18:44:33 PM
[2020-03-28] MEDS ORDERED: COLA100C5 PO (19:28)
[2020-03-28] MEDS ORDERED: BACI500O21 TOP (19:28)
[2020-03-28] MEDS ORDERED: MIRA3350 PO (19:28)
[2020-03-28 19:37] VITALS: BP 135/78
== END 2020-03-28 19:43 | disposition home or self-care (01) ==
LOC: M ED 16:43
DX: M16.12 Unilateral primary osteoarthritis, left hip (principal); E11.65 Type 2 diabetes mellitus with hyperglycemia; K59.00 Constipation, unspecified; S90.822A Blister (nonthermal), left foot, initial encounter; X19.XXXA Contact with other heat and hot substances, initial encounter; Y92.9 Unspecified place or not applicable; Y99.9 Unspecified external cause status; R60.0 Localized edema; I25.2 Old myocardial infarction; I10 Essential (primary) hypertension; E78.5 Hyperlipidemia, unspecified; N39.0 Urinary tract infection, site not specified; K57.31 Diverticulosis of large intestine without perforation or abscess with bleeding; F17.200 Nicotine dependence, unspecified, uncomplicated; Z91.048 Other nonmedicinal substance allergy status; Z79.82 Long term (current) use of aspirin; Z79.899 Other long term (current) drug therapy

== ENCOUNTER → 2020-04-20 | Outpatient (CLI) | payer MEDICARE, MEDICAID ==
[~2020-04-20] MED LIST changes: +BACI500O21 TOP; +COLA100C5 PO; +MIRA3350 PO; +TRAD5TAB
[2020-04-20 13:14] LABS: BASO # 0.1 10^3/uL (0.0-0.2); BASO % 0.4 % (0.0-1.0); EOS # 0.1 10^3/uL (0.0-0.5); EOS % 0.8 % (0.0-3.0); HEMATOCRIT 38.4 % (36.0-47.0); HEMOGLOBIN 12.1 g/dl (12.0-15.5); LYMPH # 2.3 10^3/uL (1.5-5.0); LYMPH % 17.2 % (24.0-44.0); MEAN CORPUSCULAR HEMOGLOBIN 29.2 pg (27.0-33.0); MEAN CORPUSCULAR HGB CONC 31.5 g/dl (32.0-36.5); MEAN CORPUSCULAR VOLUME 92.8 fl (80.0-96.0); MONO # 0.8 10^3/uL (0.0-0.8); MONO % 5.7 % (0.0-5.0); NEUTROPHILS # 9.8 10^3/uL (1.5-8.5); NEUTROPHILS % 75.4 % (36.0-66.0); PLATELET COUNT, AUTOMATED 230 10^3/uL (150-450); RED BLOOD COUNT 4.14 10^6/uL (4.00-5.40); WHITE BLOOD COUNT 13.1 10^3/uL (4.0-10.0)
[2020-04-20 13:32] LABS: HEMOGLOBIN A1c 9.5 %
[2020-04-20 13:35] LABS: ALT/SGPT 16 U/L (12-78); BLOOD UREA NITROGEN 19 MG/DL (7-18); CALCIUM LEVEL 9.4 MG/DL (8.8-10.2); CARBON DIOXIDE LEVEL 30 MEQ/L (21-32); CHLORIDE LEVEL 103 MEQ/L (98-107); CREATININE FOR GFR 0.97 MG/DL (0.55-1.30); GLOMERULAR FILTRATION RATE > 60.0 (>45); GLUCOSE, FASTING 292 MG/DL (70-100); POTASSIUM SERUM 5.3 MEQ/L (3.5-5.1); SODIUM LEVEL 139 MEQ/L (136-145)
[2020-04-20 13:36] LABS: ALBUMIN 3.1 GM/DL (3.2-5.2); BILIRUBIN,TOTAL 0.3 MG/DL (0.2-1.0); CHOLESTEROL LEVEL 146 MG/DL (<200); CHOLESTEROL RISK RATIO 4.709 (<5); HDL CHOLESTEROL 31 MG/DL (>40); LDL CHOLESTEROL 56 MG/DL (<100); NON-HDL-C 115 MG/DL; TOTAL PROTEIN 6.2 GM/DL (6.4-8.2); TRIGLYCERIDES LEVEL 297 MG/DL (<150)
== END ==
LOC: M WUC 10:28
PROVIDERS: ATTEND Family Medicine
DX: E11.42 Type 2 diabetes mellitus with diabetic polyneuropathy (principal)

== ENCOUNTER 2020-04-26 17:03 | Emergency (ER) | payer MEDICARE, MEDICAID ==
[~2020-04-26] VITALS: Ht 160 cm; Wt 93.8 kg
[2020-04-26 18:52] LABS: BASO % 0.3 % (0.0-1.0); EOS # 0.1 10^3/uL (0.0-0.5); EOS % 1.2 % (0.0-3.0); HEMATOCRIT 37.3 % (36.0-47.0); HEMOGLOBIN 11.6 g/dl (12.0-15.5); LYMPH # 2.8 10^3/uL (1.5-5.0); LYMPH % 24.9 % (24.0-44.0); MEAN CORPUSCULAR HEMOGLOBIN 28.4 pg (27.0-33.0); MEAN CORPUSCULAR HGB CONC 31.1 g/dl (32.0-36.5); MEAN CORPUSCULAR VOLUME 91.4 fl (80.0-96.0); MONO # 0.9 10^3/uL (0.0-0.8); MONO % 7.8 % (0.0-5.0); NEUTROPHILS # 7.2 10^3/uL (1.5-8.5); NEUTROPHILS % 65.3 % (36.0-66.0); PLATELET COUNT, AUTOMATED 241 10^3/uL (150-450); RED BLOOD COUNT 4.08 10^6/uL (4.00-5.40); WHITE BLOOD COUNT 11.1 10^3/uL (4.0-10.0)
[2020-04-26 19:18] LABS: C REACTIVE PROTEIN QUANTITATIV 0.95 MG/DL (0.00-0.30); CALCIUM LEVEL 8.8 MG/DL (8.8-10.2); CREATININE FOR GFR 1.22 MG/DL (0.55-1.30); GLOMERULAR FILTRATION RATE 47.1 (>45); POTASSIUM SERUM 5.1 MEQ/L (3.5-5.1)
[2020-04-26 19:28] LABS: ERYTHROCYTE SEDIMENTATION RATE 44 mm/hr (0-30)
--- NOTE | 2020-04-26 20:20 | REPVR ---
PROCEDURE INFORMATION: Exam: XR Right Foot Complete Exam date and time: 04/26/2020 7:59 PM Age: 65 years old Clinical indication: Other: Dm ulcer (planar aspect over 5th mtp); Additional info: Dm ulcer (plantar aspect over 5th mtp) TECHNIQUE: Imaging protocol: XR Right foot. Views: 3 or more views. COMPARISON: [place] Foot, Ap, Lat 11/20/2018 7:27 PM FINDINGS: Bones/joints: Soft tissue ulcer demonstrated at the plantar aspect of the 5th metatarsophalangeal joint. Plantar calcaneal spur. Hammertoe deformities. Degenerative changes in the interphalangeal joints. Osteoporosis. Soft tissues: Normal. IMPRESSION: Soft tissue ulcer demonstrated at the plantar aspect of the 5th metatarsophalangeal joint. Electronically signed by: Dash Reddy On 04/26/2020 20:19:49 PM
[2020-04-26 20:32] VITALS: BP 158/80
== END 2020-04-26 20:57 | disposition home or self-care (01) ==
LOC: M ED 17:03
DX: E11.621 Type 2 diabetes mellitus with foot ulcer (principal); G90.09 Other idiopathic peripheral autonomic neuropathy; F17.200 Nicotine dependence, unspecified, uncomplicated; Z91.048 Other nonmedicinal substance allergy status; Z79.899 Other long term (current) drug therapy

== ENCOUNTER 2020-05-26 20:03 | Emergency (ER) | payer MEDICARE, MEDICAID ==
[~2020-05-26] VITALS: Ht 160 cm; Wt 97.2 kg
[2020-05-26] MEDS ORDERED: BASA100I SC (20:16)
[2020-05-26 20:56] LABS: BASO % 0.4 % (0.0-1.0); EOS # 0.1 10^3/uL (0.0-0.5); EOS % 1.2 % (0.0-3.0); HEMATOCRIT 40.5 % (36.0-47.0); LYMPH # 3.1 10^3/uL (1.5-5.0); MEAN CORPUSCULAR HEMOGLOBIN 29.4 pg (27.0-33.0); MEAN CORPUSCULAR HGB CONC 32.1 g/dl (32.0-36.5); MEAN CORPUSCULAR VOLUME 91.6 fl (80.0-96.0); MONO # 0.6 10^3/uL (0.0-0.8); MONO % 6.4 % (0.0-5.0); NEUTROPHILS # 5.4 10^3/uL (1.5-8.5); NEUTROPHILS % 58.5 % (36.0-66.0); PLATELET COUNT, AUTOMATED 212 10^3/uL (150-450); RED BLOOD COUNT 4.42 10^6/uL (4.00-5.40); WHITE BLOOD COUNT 9.3 10^3/uL (4.0-10.0)
[2020-05-26 21:36] LABS: ALBUMIN 2.9 GM/DL (3.2-5.2); ALT/SGPT 18 U/L (12-78); BILIRUBIN,DIRECT < 0.1 MG/DL (0.0-0.2); BILIRUBIN,TOTAL 0.4 MG/DL (0.2-1.0); BLOOD UREA NITROGEN 17 MG/DL (7-18); CALCIUM LEVEL 8.3 MG/DL (8.8-10.2); CARBON DIOXIDE LEVEL 30 MEQ/L (21-32); CHLORIDE LEVEL 106 MEQ/L (98-107); CREATININE FOR GFR 1.06 MG/DL (0.55-1.30); GLOMERULAR FILTRATION RATE 55.4 (>45); GLUCOSE, FASTING 337 MG/DL (70-100); SODIUM LEVEL 140 MEQ/L (136-145); TOTAL PROTEIN 5.9 GM/DL (6.4-8.2)
[2020-05-26] MEDS ORDERED: HumuLIN R (REGULAR) INSULIN (NovoLIN R) **100U/ML** PER UNIT IV ONE (21:45)
[2020-05-26 23:15] VITALS: BP 145/67
== END 2020-05-26 23:21 | disposition home or self-care (01) ==
LOC: M ED 20:03
DX: E11.65 Type 2 diabetes mellitus with hyperglycemia (principal); E11.40 Type 2 diabetes mellitus with diabetic neuropathy, unspecified; I25.10 Atherosclerotic heart disease of native coronary artery without angina pectoris; I25.2 Old myocardial infarction; I10 Essential (primary) hypertension; M54.9 Dorsalgia, unspecified; R60.0 Localized edema; K57.30 Diverticulosis of large intestine without perforation or abscess without bleeding; M19.90 Unspecified osteoarthritis, unspecified site; F17.200 Nicotine dependence, unspecified, uncomplicated; Z91.048 Other nonmedicinal substance allergy status; Z79.4 Long term (current) use of insulin; Z79.82 Long term (current) use of aspirin; Z79.899 Other long term (current) drug therapy

== ENCOUNTER 2020-07-13 14:30 | Inpatient (IN) | payer MEDICARE, MEDICAID ==
[~2020-07-13] VITALS: Ht 160 cm; Wt 87.6 kg
[2020-07-13] MEDS ORDERED: GLIP10TA6 (14:58)
[2020-07-13] MEDS ORDERED: ATOR80TA59 PO (14:58)
[2020-07-13] MEDS ORDERED: LANTINJ4 INJ (14:58)
[2020-07-13] MEDS ORDERED: MORPHINE 4 MG/ML 1ML VIAL/SYRINGE (J2270) IV ONE (16:30)
[2020-07-13] MEDS ORDERED: AMPICILLIN SOD/SULBACTAM SOD 3 GM in D5W MINI-BAG PLUS 100 ML IV ONE (16:45)
[2020-07-13] MEDS ORDERED: NS 1,000 ML IV ONE ×2 (16:45→19:15)
[2020-07-13 17:12] LABS: BASO # 0.1 10^3/uL (0.0-0.2); BASO % 0.3 % (0.0-1.0); EOS # 0.1 10^3/uL (0.0-0.5); EOS % 0.3 % (0.0-3.0); HEMATOCRIT 41.6 % (36.0-47.0); HEMOGLOBIN 13.1 g/dl (12.0-15.5); LYMPH # 1.4 10^3/uL (1.5-5.0); MEAN CORPUSCULAR HEMOGLOBIN 28.1 pg (27.0-33.0); MEAN CORPUSCULAR HGB CONC 31.5 g/dl (32.0-36.5); MEAN CORPUSCULAR VOLUME 89.1 fl (80.0-96.0); MONO # 1.3 10^3/uL (0.0-0.8); MONO % 7.1 % (0.0-5.0); NEUTROPHILS # 14.5 10^3/uL (1.5-8.5); NEUTROPHILS % 82.5 % (36.0-66.0); PLATELET COUNT, AUTOMATED 315 10^3/uL (150-450); RED BLOOD COUNT 4.67 10^6/uL (4.00-5.40); WHITE BLOOD COUNT 17.6 10^3/uL (4.0-10.0)
[2020-07-13] MEDS ORDERED: fentaNYL 100 MCG/2 ML INJECTION (J3010) IV ONE (17:15)
[2020-07-13 17:24] LABS: INR 1.02; PROTHROMBIN TIME 13.6 SECONDS (12.5-14.3)
[2020-07-13 17:35] LABS: ERYTHROCYTE SEDIMENTATION RATE 65 mm/hr (0-30)
[2020-07-13 17:41] LABS: C REACTIVE PROTEIN QUANTITATIV 19.8 MG/DL (0.00-0.30); CREATININE FOR GFR 1.62 MG/DL (0.55-1.30); GLOMERULAR FILTRATION RATE 33.9 (>45); POTASSIUM SERUM 4.8 MEQ/L (3.5-5.1)
[2020-07-13] MEDS ORDERED: ISOVUE-370 76% 100ML VIAL As Ordered ONE (17:52)
[2020-07-13 18:11] LABS: ACETONE/KETONE 10.8 MG/DL (<2.81); MAGNESIUM LEVEL 1.9 MG/DL (1.8-2.4); PHOSPHORUS LEVEL 2.9 MG/DL (2.5-4.9)
[2020-07-13 18:27] LABS: VENOUS BASE EXCESS -1.9 (-2.0-2.0); VENOUS HCO3 24.1 MEQ/L (23.0-27.0); VENOUS PARTIAL PRESSURE CO2 46.6 mmHg (38.0-50.0); VENOUS PARTIAL PRESSURE O2 31.6 mmHg (30.0-50.0); VENOUS PH 7.332 UNITS (7.330-7.430); VENOUS STANDARD HCO3 22.1 MEQ/L; VENOUS TOTAL CO2 25.6 MEQ/L (24.0-28.0)
--- NOTE | 2020-07-13 18:47 | REPVR ---
PROCEDURE INFORMATION: Exam: CT Pelvis With Contrast Exam date and time: 07/13/2020 6:09 PM Age: 65 years old Clinical indication: Other: Abscess/? Gangrene please include right thigh TECHNIQUE: Imaging protocol: Computed tomography images of the pelvis with intravenous contrast. Radiation optimization: All CT scans at this facility use at least one of these dose optimization techniques: automated exposure control; mA and/or kV adjustment per patient size (includes targeted exams where dose is matched to clinical indication); or iterative reconstruction. Contrast material: ISOVUE 370; Contrast volume: 100 ml; Contrast route: INTRAVENOUS (IV); COMPARISON: CT ABD PELVIS W/O CONTRAST 05/03/2019 4:19 AM FINDINGS: Stomach and bowel: Scattered colonic diverticula. Appendix: Not seen as a separate structure. Intraperitoneal space: There is a mesh applied to the anterior peritoneal surface of the anterior abdominal wall. No significant fluid collection. Lymph nodes: Unremarkable. No enlarged lymph nodes. Urinary bladder: Normal. No mass. Reproductive: Normal as visualized. Bones/joints: Unremarkable. No acute fracture. No dislocation. Soft tissues: Stranding of the subcutaneous fat of the right upper thigh posteriorly. Multiloculated Air-fluid collection noted within the thigh posteriorly (inferior to the gluteal fold on the right) measuring approximately 4.3 by 2 by 3.5-4 cm. Subcutaneous emphysema dissects from the abscess into the adjacent soft tissues of the thigh extending superiorly into the perineum, the mons pubis on the right and the anterior abdominal wall on the right. IMPRESSION: Extensive inflammatory changes in the right thigh including subcutaneous emphysema and small multiloculated abscess. Findings suggest a necrotizing fasciitis. Ultrasound might be considered to guide diagnostic/therapeutic drainage. 2. Colonic diverticula. Electronically signed by: Abbie Tierney On 07/13/2020 18:47:45 PM
[2020-07-13 19:02] LABS: HEMOGLOBIN A1c 13.9 %
--- NOTE | 2020-07-13 20:32 | HPEPDOC ---
[facility] Medical History & Physical Date of Admission Jul 13, 2020 Date of Service: Jul 13, 2020 History and Physical CHIEF COMPLAINT: Right thigh abscess HISTORY OF PRESENT ILLNESS: 65 yo F hx of T2DM, HTN, diabetic neuropathy, VA in 2017 with stent placement x 1 at [facility]) presenting with 3 week history of progressively enlarging and painful right thigh abscess. Pain is 5/10, non-radiating, and burning in nature. She notes chills at home, but denies fevers, nausea, vomiting, diarrhea, cough, SOB, chest pain. Denies any IV drug use. On ROS, patient notes she also had dysuria x 1 day with no increase in filomena quency or change in smell or colour. In the ED, patient afebrile with vital signs stable except for tachycardia of 120. Labs significant for WBC of 17, mild EDIN, B-hydroxybutyrate of 10 with elevate BG of 400. Mildly elevated LA level of 2.1 and CRP of 19.[address] scan showing extensive inflammatory changes in right thigh including subq emphysema and small multiloculated abscess with findings suggesting necrotizing fasciitis. As per patient, the abscess was drained and 16 CC of fluid removed. Patient given a bolus of fluids, unasyn x 1 and fentanyl for pain control. PAST MEDICAL HISTORY: 1. T2DM 2. HTN 3. Diabetic neuropathy 4. VA in 2017 with stent placement x 1 PAST SURGICAL HISTORY: 1. hernia repair 2. Tubal ligation 3. Cholecystectomy 4. Appendectomy 5. Multiple tummy tucks SOCIAL HISTORY: Smoked 1 PPD for 10 years and is still a current smoker. Does not drink or use d rugs. Lives with daughter. ALLERGIES: NKDA REVIEW OF SYSTEMS: 10 point ROS performed and negative except as per HPI HOME MEDICATIONS: Please see below. PHYSICAL EXAMINATION: Constitutional: Alert and oriented x 3. In NAD HEENT: EOMI. ALLA Cardiovascular: HS 1+ 2 normal and without added sounds or regurgitations Respiratory: Lungs clear to auscultation bilaterally Abdominal: Soft and non-tender to palpation. Groin: Right inguinal enlarged lymph nodes Extremities: Right inner thigh abscess extending medially to back of thigh not extending beyond midline with area of induration, erythema and pain on palpation. No pitting edema. Warm and perfused toes. DP pulses unable to be appreciated LABORATORY DATA: See below. IMAGING: CT pelvis: 1. Extensive inflammatory changes in the right thigh including subcutaneous emphysema and small multiloculated abscess. Findings suggest a necrotizing fasciitis. Ultrasound might be considered to guide diagnostic/therapeutic drainage. 2. Colonic diverticula. MICROBIOLOGY: Please see below. ASSESSMENT/Plan: 65 yo F hx of T2DM, HTN, diabetic neuropathy, VA in 2017 with stent placement x 1 at [facility] presenting with 3 week history of progressively enlarging and painful right thigh abscess. CT scan showing extensive inflammatory changes in right thigh including subq emphysema and small multiloculated abscess with findings suggesting necrotizing fasciitis. #Right thigh abscess and ?Nec Fasciitis -A/W leukocytosis of 17 on admission. CRP 19.8. Afebrile -Empiric antibiotics with vanc and zosyn -Lactic acid on admission 2.1. Will start maintenance fluids at 120 ml/hr and trend LA -Pain control with ibuprofen, norco and morphine for breakthrough. Colace for bowel regimen -Pending wound and blood cultures. -Gen surg. consulted for possible surgical debridement and further I&D #Uncontrolled T2DM -Patient BG on admission 420s with B-Hydroxybutyrate 10.8 -A1C 13.9 -Home medication: Lantus SS + Lyica 75 TID for diabetic neuropathy -While in house will weight dose insulin: 7 units detemir BID + 5 units Lispro TID + ISS. Hypoglycemic precautions, accuchecks, diabetic diet. C/W home med Lyrica -Will start maintenance fluids at 120 ml/hr -Goal BG 140-180 #Hx of VA in 2017 with stent placement -On atorvastatin 80 and plavix 75 at home with nitroglycerin SL tab PRN. May continue all but holding plavix for possible surgery tomorrow #Colonic diverticula -Incidental finding on pelvic CT -F/U outpatient. Encourage increase in fiber intake, fluids and exercise to promote BM #Acute on chronic kidney disease -Baseline GFR appears to be stage 3a kidney disease. Currently Cr elevated from baseline -c/w fluids at 120 ml/hr #?UTI -Patients only symptom is dysuria -UA contaminated. UC pending -On vanc and zosyn as per management above #HTN (controlled) -Normotensive on admission -C/W home medication metoprolol 25 BID #Smoker -1 PPD x 10 years. Does not want nicotine patch in house #Obesity -32.3 BMI. Complicating care DVT PPX: SCDs as possible surgery tomorrow. Diet: NPO after midnight. possible surgery tomorrow Dispo: Home Case discussed with Dr. Mouna Vilchis MD Hospitalist Resident Vital Signs Vital Signs Date Time Temp Pulse Resp B/P (MAP) Pulse Ox O2 Delivery O2 Flow Rate FiO2 07/13/20 17:19 18 07/13/20 14:58 07/13/20 14:31 96.2 120 99 Room Air Laboratory Data Labs 24H Laboratory Tests 2 07/13/20 16:52: Prothrombin Time 13.6, Prothromb Time International Ratio 1.02, Estimated Mean Plasma Glucose 352H, Hemoglobin A1c 13.9 07/13/20 16:53: Immature Granulocyte % (Auto) 1.8, Neutrophils (%) (Auto) 82.5H, Lymphocytes (%) (Auto) 8.0L, Monocytes (%) (Auto) 7.1H, Eosinophils (%) (Auto) 0.3, Basophils (%) (Auto) 0.3, Neutrophils # (Auto) 14.5H, Lymphocytes # (Auto) 1.4L, Monocytes # (Auto) 1.3H, Eosinophils # (Auto) 0.1, Basophils # (Auto) 0.1, Nucleated Red Blood Cells % (auto) 0.0, Erythrocyte Sedimentation Rate 65H, Anion Gap 8, Glomerular Filtration Rate 33.9L, Osmolality 301, Lactic Acid Level 2.1*H, Calcium Level 9.0, Phosphorus Level 2.9, Magnesium Level 1.9, C-Reactive Protein, Quantitative 19.80H, B-Hydroxybutyrate 10.80H 07/13/20 18:00: Coronavirus (COVID-19)(PCR) NEGATIVE 07/13/20 18:20: Blood Gas Bicarbonate Standard 22.1, Venous Blood pH 7.332, Venous Blood Partial Pressure CO2 46.6, Venous Blood Partial Pressure O2 31.6, Venous Blood Total Carbon Dioxide 25.6, Venous Blood HCO3 24.1, Venous Blood Oxygen Saturation 57.0L, Venous Blood Base Excess -1.9 07/13/20 18:31: Urine Color YELLOW, Urine Appearance TURBIDH, Urine pH 5.0, Urine Specific [place] 1.035, Urine Protein 2+H, Urine Glucose (UA) 3+H, Urine Ketones 1+H, Urine Blood 3+H, Urine Nitrite NEGATIVE, Urine Bilirubin NEGATIVE, Urine Urobilinogen 0.2, Urine Leukocyte Esterase 3+H, Urine WBC (Auto) TNTCH, Urine RBC (Auto) TNTCH, Urine Hyaline Casts (Auto) 0, Urine Bacteria (Auto) 3+H, Urine Squamous Epithelial Cells 23, Urine Mucus (Auto) SMALL, Urine Yeast-Like Cells (Auto) LARGEH, Urine Sperm (Auto) CBC/BMP Laboratory Tests 07/13/20 16:53 Microbiology Microbiology 07/13/20 Urine Culture, Received Pending 07/13/20 Gram Stain, Received Pending 07/13/20 Wound Culture, Received Pending 07/13/20 Blood Culture, Received Pending Home Medications Scheduled Aspirin (Aspirin EC) 81 Mg Tab, 81 MG PO DAILY Atorvastatin Calcium (Atorvastatin Calcium) 80 Mg Tablet, 80 MG PO QHS Clopidogrel Bisulfate (Clopidogrel) 75 Mg Tablet, 75 MG PO DAILY Insulin Glargine,Hum.rec.anlog (Lantus Solostar) 100 Unit/1 Ml Insuln.pen, 1 DOSE INJ QAM SLIDING SCALE Metoprolol Tartrate (Metoprolol Tartrate) 25 Mg Tab, 25 MG PO BID TAKES AT 1000 AND 1730 Pregabalin (Lyrica) 75 Mg Cap, 75 MG PO TID TAKES AT 1000, 1730, & 2200 Scheduled PRN Acetaminophen (Tylenol) 325 Mg Tablet, 650 MG PO QID PRN for PAIN Nitroglycerin (Nitroglycerin) 0.4 Mg Sub, 0.4 MG SL NITRO PRN for CHEST PAIN Allergies Coded Allergies: TAPE (Verified Allergy, Unknown, SILK TAPE, 04/26/20) A-FIB/CHADSVASC A-FIB History Current/History of A-Fib/PAF?: No GME ATTESTATION GME ATTESTATION My faculty preceptor for this patient encounter was physically present during the encounter and was fully available. All aspects of the patient interview, examination, medical decision making process, and medical care plan development were reviewed and approved by the faculty preceptor. The faculty preceptor is aware and concurs with the plan as stated in the body of this note and will attest to such by his/her cosignature. ATTENDING NOTE I spoke with the Vini who tells me shes just been progressively getting worse over the past 10 years since his known her weaker and has a drop foot and doesnt use her cane often. He is worried that she takes too much of her opiates for her back pain. Regarding her mumbling difficult to understand speech she says she has no teeth and even he has a hard time understanding her most of the time so he doesnt think that this is different from her baseline. NIYAH VILCHIS M.D.,PGY-2 Jul 13, 2020 20:32 RODRIGUEZ HI MD Jul 15, 2020 06:22
[2020-07-13] MEDS ORDERED: IBUPROFEN 600MG TAB PO PRN (21:00)
[2020-07-13] MEDS ORDERED: NITROGLYCERIN 0.4 MG SUBL TABLET SL PRN (21:00)
[2020-07-13] MEDS ORDERED: MORPHINE 2 MG/ML 1ML VIAL (J2270) IV PRN (21:00)
[2020-07-13] MEDS ORDERED: LEVEMIR (INSULIN DETEMIR) 1 UNITS/0.01ML SC SCH (21:15)
[2020-07-13] MEDS ORDERED: HumaLOG INSULIN (NovoLOG) PER UNIT SC ONE ×2 (21:15→21:45)
[2020-07-13] MEDS ORDERED: GLUCOSE 4GM CHEW TABLET PO PRN (21:15)
[2020-07-13] MEDS ORDERED: DEXTROSE 50% 50 ML SYRINGE IV PRN (21:15)
[2020-07-13] MEDS ORDERED: GLUCAGON INJ 1MG VIAL SC PRN (21:15)
[2020-07-13] MEDS ORDERED: VANCOMYCIN HCL 750 MG, VIAL MATE ADAPTER 1 EACH in D5W 250 ML IV ONE (21:30)
[2020-07-13] MEDS: NS 1,000 ML IV SCH (21:49)
[2020-07-13] MEDS ORDERED: fentaNYL 100 MCG/2 ML INJECTION (J3010) As Ordered ONE (22:44)
[2020-07-13] MEDS ORDERED: MIDAZOLAM INJ 2MG/2ML VIAL (J2250 PER 1MG) As Ordered ONE (22:44)
[2020-07-13] MEDS ORDERED: LIDOCAINE 2% 100MG/5ML SDV (FOR ANES.) As Ordered ONE (22:45)
[2020-07-13] MEDS ORDERED: ONDANSETRON 4MG/2ML VIAL As Ordered ONE (22:45)
[2020-07-13] MEDS ORDERED: dexameTHASONE 4 MG/ML 1ML VIAL (J1100 PER 1MG) As Ordered ONE (22:45)
[2020-07-13] MEDS ORDERED: propofoL 200 MG/20 ML VIAL As Ordered ONE (22:45)
[2020-07-13] MEDS ORDERED: ROCURONIUM BROMIDE 50 MG/5 ML VIAL As Ordered ONE (22:59)
[2020-07-13] MEDS ORDERED: VASOPRESSIN INJ 20 UNITS/ML VIAL As Ordered ONE (23:20)
[2020-07-13] MEDS ORDERED: ePHEDrine SULFATE 25 MG/5 ML(5MG/ML) SYRINGE As Ordered ONE (23:26)
[2020-07-13] MEDS ORDERED: PHENYLephrine HCL 500 MCG/5 ML (100MCG/ML) SYRINGE (J2370) As Ordered ONE (23:26)
[2020-07-13] MEDS ORDERED: SUGAMMADEX SODIUM 500 MG/5 ML VIAL (BRIDION) As Ordered ONE (23:36)
[2020-07-13] MEDS ORDERED: ACETAMINOPHEN 1000MG 100ML IV BTL (OFIRMEV) (J0131 PER 10MG) As Ordered ONE (23:39)
[2020-07-14] VITALS (12 sets, daily range): BP systolic 92–126; BP diastolic 52–62
[2020-07-14] MEDS ORDERED: oxyCODONE 5MG TAB As Ordered ONE (00:24)
[2020-07-14] MEDS: HumaLOG INSULIN (NovoLOG) PER UNIT SC SCH ×7 (00:29→17:27)
[2020-07-14] MEDS ORDERED: oxyCODONE 5MG TAB PO PRN (00:30)
[2020-07-14] MEDS ORDERED: LR 1,000 ML IV SCH (00:30)
[2020-07-14] MEDS ORDERED: fentaNYL 100 MCG/2 ML INJECTION (J3010) IV PRN (00:30)
[2020-07-14] MEDS ORDERED: ONDANSETRON 4MG/2ML VIAL IV PRN (00:30)
[2020-07-14] MEDS ORDERED: PIPERACILLIN/TAZOBACTAM SOD 4.5 GM in D5W MINI-BAG PLUS 50 ML IV SCH (01:00)
[2020-07-14] MEDS: VANCOMYCIN HCL 1,000 MG, VIAL MATE ADAPTER 1 EACH in D5W 250 ML IV SCH ×2 (01:25→17:26)
[2020-07-14] MEDS: METOPROLOL TART 25 MG TABLET PO SCH ×3 (01:38→17:26)
[2020-07-14] MEDS: PREGABALIN 75 MG CAP(LYRICA) PO SCH ×4 (01:47→20:06)
[2020-07-14] MEDS: DOCUSATE SODIUM 100MG CAPSULE PO SCH ×3 (01:47→20:06)
[2020-07-14] MEDS: ATORVASTATIN 20 MG TAB PO SCH ×2 (01:48→20:07)
[2020-07-14] MEDS: PIPERACILLIN/TAZOBACTAM SOD 4.5 GM in D5W MINI-BAG PLUS 50 ML IV SCH ×3 (03:13→21:01)
[2020-07-14] MEDS ORDERED: NS 500 ML IV ONE (05:00)
[2020-07-14] MEDS: NS 1,000 ML IV SCH (05:20)
[2020-07-14 05:37] LABS: BASO # 0.1 10^3/uL (0.0-0.2); BASO % 0.5 % (0.0-1.0); EOS # 0.1 10^3/uL (0.0-0.5); LYMPH # 2.6 10^3/uL (1.5-5.0); LYMPH % 20.8 % (24.0-44.0); MEAN CORPUSCULAR HEMOGLOBIN 28.3 pg (27.0-33.0); MEAN CORPUSCULAR HGB CONC 31.5 g/dl (32.0-36.5); MEAN CORPUSCULAR VOLUME 89.9 fl (80.0-96.0); NEUTROPHILS # 8.5 10^3/uL (1.5-8.5); NEUTROPHILS % 67.6 % (36.0-66.0); PLATELET COUNT, AUTOMATED 264 10^3/uL (150-450); RED BLOOD COUNT 3.67 10^6/uL (4.00-5.40); WHITE BLOOD COUNT 12.6 10^3/uL (4.0-10.0)
[2020-07-14 05:44] LABS: HEMOGLOBIN 10.4 g/dl (12.0-15.5)
[2020-07-14 06:04] LABS: ALBUMIN 1.5 GM/DL (3.2-5.2); BILIRUBIN,TOTAL 0.4 MG/DL (0.2-1.0); CALCIUM LEVEL 7.9 MG/DL (8.8-10.2); CREATININE FOR GFR 1.18 MG/DL (0.55-1.30); GLOMERULAR FILTRATION RATE 48.9 (>45); POTASSIUM SERUM 3.9 MEQ/L (3.5-5.1)
[2020-07-14] MEDS ORDERED: HumaLOG INSULIN (NovoLOG) PER UNIT SC SCH (08:00)
--- NOTE | 2020-07-14 09:46 | IPNPDOC ---
Text Note Date of Service The patient was seen on 07/14/20. NOTE SUBJECTIVE: Feels better this morning. Pain and pressure in the right thigh much better. PHYSICAL EXAMINATION: Vitals : As below Constitutional: Laying in bed in no distress. HEENT: NC, AT, moist mucous membranes, anicteric eyes. Cardiovascular: HS 1+ 2 normal and without any murmur or rub or gallop Respiratory: Lungs clear to auscultation bilaterally Abdominal: Soft and non-tender to palpation. bowels sounds present. Surgical dressing in the lower abdomen. Groin: Right inguinal enlarged lymph nodes Extremities: Had Right inner thigh abscess extending medially to back of thigh with area of induration, erythema. S/p surgical debridement. LABORATORY DATA: See below. IMAGING: CT Pelvis: Stranding of the subcutaneous fat of the right upper thigh posteriorly. Multiloculated Air-fluid collection noted within the thigh posteriorly (inferior to the gluteal fold on the right) measuring approximately 4.3 by 2 by 3.5-4 cm. Subcutaneous emphysema dissects from the abscess into the adjacent soft tissues of the thigh extending superiorly into the perineum, the mons pubis on the right and the anterior abdominal wall on the right. Impression 1. Extensive inflammatory changes in the right thigh including subcutaneous emphysema and small multiloculated abscess. Findings suggest a necrotizing fasciitis. Ultrasound might be considered to guide diagnostic/therapeutic drainage. 2. Colonic diverticula. ASSESSMENT/Plan: 65 yo F hx of T2DM, HTN, diabetic neuropathy, CAD s/p NC in 2017 with stent placement x 1 at [facility]) presented with 3 week history of progressively enlarging and painful right thigh abscess. CT scan showed extensive inflammatory changes in right thigh including subq emphysema and small multiloculated abscess with findings suggesting necrotizing fasciitis. Andrea was admitted for necrotizing fascitis of the right posterior upper thigh inferior to the gluteal fold extending into the perineum and the mon pubis. #Right thigh Necrotizing Fasciitis S/p I a&D Vanco and Zosyn. Pain control with ibuprofen, norco and morphine for breakthrough. Colace for bowel regimen Pending wound and blood cultures. Uncontrolled T2DM with diabetic neuropathy Levemir bid and lispro ac and sliding scale FS AC and HS. CAD with Hx of [place] in 2017 with stent placement atorvastatin 80 and plavix 75 at home with nitroglycerin SL tab PRN Hypertension BP soft this morning. will hold off on Bp meds Colonic diverticula Incidental finding on pelvic CT F/U outpatient. Encourage increase in fiber intake, fluids and exercise to promote BM UTI UA contaminated. UC pending On vanc and zosyn as per management above Smoker -1 PPD x 10 years. Does not want nicotine patch in house Obesity 32.3 BMI. Complicating care VS,Fishbone, I+O VS, Fishbone, I+O Laboratory Tests 07/13/20 16:53 07/14/20 05:08 Vital Signs Date Time Temp Pulse Resp B/P (MAP) Pulse Ox O2 Delivery O2 Flow Rate FiO2 07/14/20 05:56 97.3 82 18 98/52 (67) 99 Nasal Cannula 2.0 I&O- Last 24 Hours up to 6 AM 07/14/20 06:00 Intake Total 3355 ml Output Total 50 ml Balance 3305 ml ARTURO WILSON MD Jul 14, 2020 09:45
[2020-07-14] MEDS: ASPIRIN 81 MG ENTERIC TAB PO SCH (10:09)
[2020-07-14] MEDS: LEVEMIR (INSULIN DETEMIR) 1 UNITS/0.01ML SC SCH ×2 (10:14→20:07)
[2020-07-14] MEDS: NORCO, ANEXSIA 5/325MG TABLET (HYDROcodone/ACETAMINOPHEN) PO PRN (20:08)
[2020-07-15] VITALS: BP 108/57
[2020-07-15] MEDS: PIPERACILLIN/TAZOBACTAM SOD 4.5 GM in D5W MINI-BAG PLUS 50 ML IV SCH ×3 (04:01→18:00)
[2020-07-15 05:13] LABS: BASO # 0.1 10^3/uL (0.0-0.2); BASO % 0.7 % (0.0-1.0); EOS # 0.2 10^3/uL (0.0-0.5); EOS % 1.5 % (0.0-3.0); HEMATOCRIT 34.5 % (36.0-47.0); HEMOGLOBIN 10.6 g/dl (12.0-15.5); LYMPH # 3.2 10^3/uL (1.5-5.0); LYMPH % 25.9 % (24.0-44.0); MEAN CORPUSCULAR HEMOGLOBIN 28.2 pg (27.0-33.0); MEAN CORPUSCULAR HGB CONC 30.7 g/dl (32.0-36.5); MEAN CORPUSCULAR VOLUME 91.8 fl (80.0-96.0); MONO % 7.7 % (0.0-5.0); NEUTROPHILS # 7.3 10^3/uL (1.5-8.5); NEUTROPHILS % 59.3 % (36.0-66.0); PLATELET COUNT, AUTOMATED 294 10^3/uL (150-450); RED BLOOD COUNT 3.76 10^6/uL (4.00-5.40); WHITE BLOOD COUNT 12.3 10^3/uL (4.0-10.0)
[2020-07-15 05:39] LABS: C REACTIVE PROTEIN QUANTITATIV 11.1 MG/DL (0.00-0.30); CALCIUM LEVEL 7.8 MG/DL (8.8-10.2); CREATININE FOR GFR 1.3 MG/DL (0.55-1.30); GLOMERULAR FILTRATION RATE 43.8 (>45); POTASSIUM SERUM 4.7 MEQ/L (3.5-5.1)
[2020-07-15 08:00] VITALS: BP 103/51
--- NOTE | 2020-07-15 08:10 | IPN ---
PROGRESS NOTE DATE: 07/14/2020 SUBJECTIVE: The patient is postop day #1 from incision and debridement of a large abscess in the right proximal medial thigh which extended into the posterior aspect of the thigh and then up also with some gas tracking through the right labia to the suprapubic area of the anterior abdominal wall. On exploration, these areas of the labia and abdominal wall did not appear to represent acute infection but merely tracking of gas from her thigh wound. The thigh wound was surprisingly clean with only a small amount of loose necrotic fatty tissue that was extruded. PHYSICAL EXAMINATION: VITAL SIGNS: She has remained afebrile since surgery. Her pulse is in the 70s and 80s and her blood pressure is excellent. Room air oxygen saturations are normal. INTAKE AND OUTPUT: Intake and output showed that she has tolerated a small amount of liquids so far today. Her urine output appears adequate. GENERAL: The patient is sitting up in a chair looking fairly comfortable. HEART AND LUNGS: Unremarkable. ABDOMEN: The gauze remains in place in the right medial thigh and the lower abdominal incision. LABORATORY DATA: Labs today shows that her white count is down to 13, hemoglobin is 10 with a hematocrit of 33 and a platelet count of 264,000. Differential count shows 68% neutrophils, 21 lymphocytes and 8% monocytes. Chemistry profile showed normal electrolytes with a BUN of 19 and a creatinine of 1.1 and a glucose down to 250 from 425 last evening. Total protein is 5.0 with an albumin of 1.5. IMPRESSION: Patient is doing well postop day #1 from her abscess drainage. She did not have necrotizing fasciitis identified. PLAN: I will start with daily moist saline dressing changes to her thigh and suprapubic area. I will probably remove her Amenia drain which connects these two areas tomorrow. She should be up out of bed and can ambulate with assistance as needed. She should remain on antibiotics at this point. We may wish to change to a Wound-Vac in the course of treatment of her thigh wound but we will make this decision later. BRENDA
[2020-07-15] MEDS: ASPIRIN 81 MG ENTERIC TAB PO SCH (08:36)
[2020-07-15] MEDS: DOCUSATE SODIUM 100MG CAPSULE PO SCH ×2 (08:37→20:24)
[2020-07-15] MEDS: PREGABALIN 75 MG CAP(LYRICA) PO SCH ×3 (08:37→20:24)
[2020-07-15] MEDS: LEVEMIR (INSULIN DETEMIR) 1 UNITS/0.01ML SC SCH ×2 (08:38→20:24)
[2020-07-15] MEDS: HumaLOG INSULIN (NovoLOG) PER UNIT SC SCH ×7 (08:39→20:25)
[2020-07-15] MEDS: METOPROLOL TART 25 MG TABLET PO SCH ×2 (08:40→18:01)
[2020-07-15] MEDS ORDERED: ACETAMINOPHEN TAB 650MG DOSE (2X325MG) PO PRN (09:30)
--- NOTE | 2020-07-15 10:39 | IPNPDOC ---
Text Note Date of Service The patient was seen on 07/15/20. NOTE SUBJECTIVE: Feels better this morning. Pain and pressure in the right thigh much better. no diarrhea. No fever or chills PHYSICAL EXAMINATION: Vitals : As below Constitutional: Laying in bed in no distress. HEENT: NC, AT, moist mucous membranes, anicteric eyes. Cardiovascular: HS 1+ 2 normal and without any murmur or rub or gallop Respiratory: Lungs clear to auscultation bilaterally Abdominal: Soft and non-tender to palpation. bowels sounds present. Surgical dressing in the lower abdomen. Groin: Right inguinal enlarged lymph nodes Extremities: Had Right upper inner thigh abscess extending medially to back of thigh with area of induration, erythema with gas extending along the labia to the mon pubis s/p incision and drainage with a drain in place. LABORATORY DATA: See below. IMAGING: CT Pelvis: Stranding of the subcutaneous fat of the right upper thigh posteriorly. Multiloculated Air-fluid collection noted within the thigh posteriorly (inferior to the gluteal fold on the right) measuring approximately 4.3 by 2 by 3.5-4 cm. Subcutaneous emphysema dissects from the abscess into the adjacent soft tissues of the thigh extending superiorly into the perineum, the mons pubis on the right and the anterior abdominal wall on the right. Impression 1. Extensive inflammatory changes in the right thigh including subcutaneous emphysema and small multiloculated abscess. Findings suggest a necrotizing fasciitis. Ultrasound might be considered to guide diagnostic/therapeutic drainage. 2. Colonic diverticula. ASSESSMENT/Plan: 65 yo F hx of T2DM, HTN, diabetic neuropathy, CAD s/p [place] in 2017 with stent placement x 1 at [facility]) presented with 3 week history of progressively enlarging and painful right thigh abscess. CT scan showed extensive inflammatory changes in right thigh including subq emphysema and small multiloculated abscess with findings suggesting necrotizing fasciitis. Patient was admitted for necrotizing fascitis of the right posterior upper thigh inferior to the gluteal fold extending into the perineum and the mon pubis. # Large Right Medial thigh abscess s/p incision and drainage on 07/13/[address] Argueta there was no necrotizing fascitis. Continue Vanco and Zosyn. Pain control with ibuprofen, norco and morphine for breakthrough. Colace for bowel regimen blood cultures negative till date. Wound culture staph and corynebacterium Uncontrolled T2DM with diabetic neuropathy Levemir bid and lispro ac and sliding scale FS AC and HS. CAD with Hx of [place] in 2017 with stent placement atorvastatin 80 and plavix 75 at home with nitroglycerin SL tab PRN Hypertension BP soft this morning. will hold off on Bp meds Colonic diverticula Incidental finding on pelvic CT F/U outpatient. Encourage increase in fiber intake, fluids and exercise to promote BM UTI UA contaminated. UC pending On vanc and zosyn as per management above Smoker 1 PPD x 10 years. Does not want nicotine patch in house Obesity 32.3 BMI. Complicating care VS,Fishbone, I+O VS, Fishbone, I+O Laboratory Tests 07/15/20 04:55 Vital Signs Date Time Temp Pulse Resp B/P (MAP) Pulse Ox O2 Delivery O2 Flow Rate FiO2 07/15/20 08:40 78 103/51 07/15/20 08:00 97.0 17 98 Room Air 07/14/20 05:56 2.0 I&O- Last 24 Hours up to 6 AM 07/15/20 06:00 Intake Total 2690 ml Output Total 500 ml Balance 2190 ml ARTURO WILSON MD Jul 15, 2020 10:39
[2020-07-15] MEDS: VANCOMYCIN HCL 1,000 MG, VIAL MATE ADAPTER 1 EACH in D5W 250 ML IV SCH (12:30)
[2020-07-15 14:25] VITALS: BP 117/61
[2020-07-15 18:00] VITALS: BP 130/75
[2020-07-15] MEDS: NORCO, ANEXSIA 5/325MG TABLET (HYDROcodone/ACETAMINOPHEN) PO PRN (18:27)
[2020-07-15] MEDS: ATORVASTATIN 20 MG TAB PO SCH (20:24)
[2020-07-15 22:00] VITALS: BP 129/69
[2020-07-16] MEDS: PIPERACILLIN/TAZOBACTAM SOD 4.5 GM in D5W MINI-BAG PLUS 50 ML IV SCH ×3 (03:22→18:23)
[2020-07-16] MEDS: NORCO, ANEXSIA 5/325MG TABLET (HYDROcodone/ACETAMINOPHEN) PO PRN ×3 (03:28→22:59)
[2020-07-16] MEDS: VANCOMYCIN HCL 1,000 MG, VIAL MATE ADAPTER 1 EACH in D5W 250 ML IV SCH (05:23)
[2020-07-16 05:57] LABS: HEMATOCRIT 32.9 % (36.0-47.0); HEMOGLOBIN 10.3 g/dl (12.0-15.5); MEAN CORPUSCULAR HEMOGLOBIN 28.5 pg (27.0-33.0); MEAN CORPUSCULAR HGB CONC 31.3 g/dl (32.0-36.5); MEAN CORPUSCULAR VOLUME 90.9 fl (80.0-96.0); PLATELET COUNT, AUTOMATED 323 10^3/uL (150-450); RED BLOOD COUNT 3.62 10^6/uL (4.00-5.40)
[2020-07-16 06:00] VITALS: BP 126/70
[2020-07-16 06:25] LABS: EOSINOPHILS 2 % (0-3); LYMPHOCYTES 23 % (16-44); METAMYELOCYTES 1 % (0-0); MONOCYTES 5 % (0-5); NEUTROPHILS 69 % (28-66); PLATELET ESTIMATE NORMAL (NORMAL)
[2020-07-16 06:26] LABS: CREATININE FOR GFR 1.15 MG/DL (0.55-1.30); GLOMERULAR FILTRATION RATE 50.4 (>45)
--- NOTE | 2020-07-16 06:45 | IPN ---
PROGRESS NOTE DATE: 07/15/2020 SUBJECTIVE: The patient is postop day #2 from incision and drainage of a large abscess in the right upper inner thigh. There was some tracking of gas in the subcutaneous tissues into the lower abdominal wall and a Elin drain was placed from the thigh up to the anterior abdominal wall. PHYSICAL EXAMINATION: VITAL SIGNS: Vital signs shows that she has been afebrile over the past 24 hours. Her pulse is in the 70s and low 80s. Her blood pressure is excellent and her room air oxygen saturation is normal. INTAKE AND OUTPUT: She has had 2700 in yesterday with 500 recorded out although there are several unmeasured voids noted. PHYSICAL EXAMINATION: She is lying quietly in the hospital bed. She is alert and oriented. She denies any significant discomfort at rest. She has a small dressing on the lower mid abdominal wound with the [place] passing down to the wound in her upper inner thigh. LABORATORY DATA: Laboratory studies today shows a white count of 12, hemoglobin 11, hematocrit 34 and a platelet count of 294,000. Differential count is actually normal today. Chemistries show a sodium of 140, potassium 4.7, chloride 111, CO2 25, BUN 19, creatinine of 1.3 and a glucose of 247. Her C-reactive protein is 11.1 from 19.8 on the 1st. Cultures at this point are growing Staph aureus and corynebacterium from her thigh wound. IMPRESSION: Patient is doing extremely well following her surgery. She did not have necrotizing fasciitis, only a significant abscess in the thigh. PLAN: I cut and removed her Elin drain today. The two wounds will be dressed separately with saline gauze. I expect the lower abdominal wall should close quite readily. A Wound-Vac may be appropriate for her inner thigh wound and I will reassess this in the next day or two. BRENDA
[2020-07-16] MEDS: PREGABALIN 75 MG CAP(LYRICA) PO SCH ×3 (08:18→20:41)
[2020-07-16] MEDS: DOCUSATE SODIUM 100MG CAPSULE PO SCH ×2 (08:18→20:41)
[2020-07-16] MEDS: HumaLOG INSULIN (NovoLOG) PER UNIT SC SCH ×7 (08:18→20:41)
[2020-07-16] MEDS: ASPIRIN 81 MG ENTERIC TAB PO SCH (08:18)
[2020-07-16] MEDS: METOPROLOL TART 25 MG TABLET PO SCH ×2 (08:19→17:13)
[2020-07-16] MEDS: LEVEMIR (INSULIN DETEMIR) 1 UNITS/0.01ML SC SCH ×2 (08:20→20:41)
--- NOTE | 2020-07-16 12:51 | IPNPDOC ---
Text Note Date of Service The patient was seen on 07/16/20. NOTE SUBJECTIVE: Feels better this morning. Pain and pressure in the right thigh much better. no diarrhea. No fever or chills. patient has been ambulating in the room. PHYSICAL EXAMINATION: Vitals : As below Constitutional: Laying in bed in no distress. HEENT: NC, AT, moist mucous membranes, anicteric eyes. Cardiovascular: HS 1+ 2 normal and without any murmur or rub or gallop Respiratory: Lungs clear to auscultation bilaterally Abdominal: Soft and non-tender to palpation. bowels sounds present. Surgical dressing in the lower abdomen. Groin: Right inguinal enlarged lymph nodes Extremities: Had Right upper inner thigh abscess extending medially to back of thigh with area of induration, erythema with gas extending along the labia to the mon pubis s/p incision and drainage with dressing in place. LABORATORY DATA: See below. IMAGING: CT Pelvis: Stranding of the subcutaneous fat of the right upper thigh posteriorly. Multiloculated Air-fluid collection noted within the thigh posteriorly (inferior to the gluteal fold on the right) measuring approximately 4.3 by 2 by 3.5-4 cm. Subcutaneous emphysema dissects from the abscess into the adjacent soft tissues of the thigh extending superiorly into the perineum, the mons pubis on the right and the anterior abdominal wall on the right. Impression 1. Extensive inflammatory changes in the right thigh including subcutaneous emphysema and small multiloculated abscess. Findings suggest a necrotizing fasciitis. Ultrasound might be considered to guide diagnostic/therapeutic drainage. 2. Colonic diverticula. ASSESSMENT/Plan: 65 yo F hx of T2DM, HTN, diabetic neuropathy, CAD s/p VA in 2017 with stent placement x 1 at [facility]) presented with 3 week history of progressively enlarging and painful right thigh abscess. CT scan showed extensive inflammatory changes in right thigh including subq emphysema and small multiloculated abscess with findings suggesting necrotizing fasciitis. Patient was admitted for necrotizing fascitis of the right posterior upper thigh inferior to the gluteal fold extending into the perineum and the mon pubis. # Large Right posterior Medial thigh abscess s/p incision and drainage on 07/13/[address] Argueta there was no necrotizing fascitis. Continue Zosyn. Pain control with ibuprofen, norco and morphine for breakthrough. Colace for bowel regimen blood cultures negative till date. Wound culture MSSA and corynebacterium, Globicatella sanguinis. May need a wound vac. Uncontrolled T2DM with diabetic neuropathy Levemir bid and lispro ac and sliding scale FS AC and HS. CAD with Hx of VA in 2017 with stent placement atorvastatin 80 and plavix 75 at home with nitroglycerin SL tab PRN Hypertension Bp controlled with out meds have not started home meds yet. Colonic diverticula Incidental finding on pelvic CT F/U outpatient. Encourage increase in fiber intake, fluids and exercise to promote BM UTI ruled out UA contaminated. UC contaminated. Smoker 1 PPD x 10 years. Does not want nicotine patch in house Obesity 32.3 BMI. Complicating care VS,Fishbone, I+O VS, Fishbone, I+O Laboratory Tests 07/16/20 05:30 Vital Signs Date Time Temp Pulse Resp B/P (MAP) Pulse Ox O2 Delivery O2 Flow Rate FiO2 07/16/20 08:19 80 124/76 07/16/20 06:00 98.4 17 96 Room Air 07/14/20 05:56 2.0 I&O- Last 24 Hours up to 6 AM 07/16/20 06:00 Intake Total 1610 ml Output Total 700 ml Balance 910 ml ARTURO WILSON MD Jul 16, 2020 12:51
[2020-07-16 14:00] VITALS: BP 134/69
--- NOTE | 2020-07-16 17:18 | RO ---
OPERATIVE NOTE DATE OF OPERATION: 07/13/2020 PREOPERATIVE DIAGNOSIS: Right thigh and groin infection. POSTOPERATIVE DIAGNOSIS: Complicated right thigh abscess with tracking of air through right labia to the lower abdominal wall. PROCEDURE PERFORMED: Incision and debridement of right thigh and groin with incision of lower abdominal wall. SURGEON: Jhoan Argueta MD ANESTHESIA: General. INDICATIONS FOR THE PROCEDURE: The patient is a 65-year-old woman who presented to the emergency department with a roughly three week history of an infection in the right upper inner thigh. She has noticed drainage over the last week to ten days. In the emergency department, a CT scan showed a large collection of gas in the right upper inner thigh tracking through the right labia and up into the suprapubic area of the abdominal wall. She is now for exploration of her infection with debridement as necessary. OPERATIVE PROCEDURE: The patient was brought to the operating room and placed on the table in a supine position. She was placed under general endotracheal anesthesia. She was moved into a low lithotomy position with the lower extremities in the stirrups. The lower abdomen, groins, genitalia and thighs were prepped and draped in a sterile fashion. Inspection of the right thigh revealed an approximately 1 cm opening in the high upper inner thigh posteriorly. A roughly 4-5 cm skin incision was made transversely across the thigh, crossing the draining site. This allowed greater exploration of the abscess cavity. There was a fairly complicated but fairly mature looking abscess identified. Inspection by digital probing showed that this extended 6-8 or even 10 cm posteriorly into the subcutaneous tissues of the thigh. There was another tract that extended more inferiorly down the medial thigh and then there was also some tracking superiorly. The pocket contained some purulent fluid and one small mass of necrotic appearing fibrofatty tissue was extruded as well but overall the cavity appeared lined by viable tissue. The skin was fairly thin in the medial thigh above the area of drainage and this tissue appeared somewhat tenuous for survival. The incision was extended further to approximately 10 cm and some of the very thinned skin was excised. Probing superior showed no definite tracts headed to the labia although the tissues in this area were found to be somewhat soft. I elected to make a second small incision in the suprapubic area. An approximately 6 cm transverse incision was made through her old abdominoplasty scar at the midline in the suprapubic area. The incision was deepened through the subcutaneous tissues to the fascia which was identified. Gentle finger probing showed no definite signs of necrotizing fascitis. I was able to insert a finger inferiorly through the suprapubic tissues and down into the labia. A finger was inserted from below and a tract was created all the way from the proximal thigh through the labia to the anterior abdominal wall. There was no drainage or evident breakdown of tissues to suggest necrotizing fasciitis. Clearly there had been gas in this area on the CT scan obtained in the emergency department and this was reviewed in the operating room. A 1/4 inch [place] drain was placed through this developed tract from the abdominal wall down to the thigh and then the two ends were tied together externally to create a loop through this channel. The thigh wound was inspected a final time. The thigh wound was then filled with some saline moistened gauze with gauze tracked inferiorly, posteriorly and superiorly from the open area. The small incision in was lower abdominal wall was also filled with saline moistened gauze. Multi-bandages were applied exteriorly. The patient tolerated the procedure well without apparent complication. She was awakened in the operating room, extubated and moved to the recovery room in stable condition.
[2020-07-16] MEDS: ATORVASTATIN 20 MG TAB PO SCH (20:41)
[2020-07-16 22:00] VITALS: BP 143/75
--- NOTE | 2020-07-16 22:51 | IPN ---
PROGRESS NOTE DATE: 07/16/2020 SUBJECTIVE: The patient is postop day number three from incision and debridement of a large abscess in the right proximal medial thigh with some tracking of gas through the subcutaneous tissues of the right labia and into the lower abdominal wall. There was no evidence of necrotizing fasciitis. Her drain was removed from the wounds yesterday. Vital signs show that she has been afebrile over the past 24 hours. Her pulse is in the 70's and 80's and her blood pressure is excellent. Intake and output shows that yesterday she had 1,500 in with 700 recorded out in urine. PHYSICAL EXAMINATION: The patient appears fairly comfortable today. She is awake and alert. HEART: Unremarkable. LUNGS: Unremarkable. ABDOMEN: Examination of her suprapubic wound shows that this is clean and shows no purulent drainage of any kind. EXTREMITIES: The right proximal thigh wound is also inspected and the dressing changed. The wound edges have somewhat but the tissues lining the base of the wound appear fairly clean. IMPRESSION: The patient is doing well following her drainage. Her blood sugars remain quite elevated with her fingersticks ranging between 167 and 270 over the past 24 hours. Her cultures have grown staph aureus which is not Methicillin resistant as well as Globicatella and corynebacterium species. RECOMMENDATIONS: At this point I have put in an order to place a vacuum assisted closure dressing on the thigh wound. I think there is enough room to make this work acceptably, and this will probably hasten healing in this area. The small suprapubic wound I think will be adequately addressed by twice daily saline gauze packing. The wound is clean and small and well aligned and I think there will be no benefit to attempting a VAC dressing in this area. BRENDA
[2020-07-17] MEDS: PIPERACILLIN/TAZOBACTAM SOD 4.5 GM in D5W MINI-BAG PLUS 50 ML IV SCH ×3 (03:46→18:39)
[2020-07-17] MEDS: NORCO, ANEXSIA 5/325MG TABLET (HYDROcodone/ACETAMINOPHEN) PO PRN ×4 (03:47→21:03)
[2020-07-17 06:00] VITALS: BP 127/65
[2020-07-17 06:24] LABS: HEMOGLOBIN 9.7 g/dl (12.0-15.5); MEAN CORPUSCULAR HEMOGLOBIN 27.3 pg (27.0-33.0); MEAN CORPUSCULAR HGB CONC 30.3 g/dl (32.0-36.5); MEAN CORPUSCULAR VOLUME 90.1 fl (80.0-96.0); PLATELET COUNT, AUTOMATED 345 10^3/uL (150-450); RED BLOOD COUNT 3.55 10^6/uL (4.00-5.40); WHITE BLOOD COUNT 12.6 10^3/uL (4.0-10.0)
[2020-07-17 07:03] LABS: ATYPICAL LYMPH 2 % (0-5); BASOPHILS 1 % (0-1); EOSINOPHILS 3 % (0-3); LYMPHOCYTES 26 % (16-44); METAMYELOCYTES 1 % (0-0); MONOCYTES 3 % (0-5); NEUTROPHILS 63 % (28-66); PLATELET ESTIMATE NORMAL (NORMAL)
[2020-07-17 07:04] LABS: HYPOCHROMASIA 1+
[2020-07-17 07:08] LABS: BLOOD UREA NITROGEN 12 MG/DL (7-18); CALCIUM LEVEL 8.3 MG/DL (8.8-10.2); CARBON DIOXIDE LEVEL 26 MEQ/L (21-32); CHLORIDE LEVEL 108 MEQ/L (98-107); CREATININE FOR GFR 0.95 MG/DL (0.55-1.30); GLOMERULAR FILTRATION RATE > 60.0 (>45); GLUCOSE, FASTING 193 MG/DL (70-100); SODIUM LEVEL 137 MEQ/L (136-145)
--- NOTE | 2020-07-17 07:54 | IPNPDOC ---
Date Seen The patient was seen on 07/17/20. Progress Note SUBJECTIVE: No suprapubic or right thigh pain.walked around floor twice yesterday w/o discomfort. no fever/chills overnight. worried that she is unable to care for her wounds at home despite having a daughter available 02/02. suprapubic wound has no purulent drainage overnight, and just changed this morning. OBJECTIVE PHYSICAL EXAMINATION: VITAL SIGNS: Please see below. GENERAL: AAOX3 no distress HEENT: no jvd, cervical LAD or thyromegaly CARDIOVASCULAR: S1S2 RRR RESPIRATORY: AEBE CTAB ABDOMINAL: suprapubic wound w serous drainage on dressing. no erythema or tenderrness. no purulence. +BS x 4quadrants no rebound or guarding soft EXTREMITIES: Right medial thigh w wound vac no erythema, tenderness or crepitus. no edema LABORATORY DATA, IMAGING STUDIES, MICROBIOLOGY: Please see below. IMAGING: CT Pelvis: Stranding of the subcutaneous fat of the right upper thigh posteriorly. Multiloculated Air-fluid collection noted within the thigh posteriorly (inferior to the gluteal fold on the right) measuring approximately 4.3 by 2 by 3.5-4 cm. Subcutaneous emphysema dissects from the abscess into the adjacent soft tissues of the thigh extending superiorly into the perineum, the mons pubis on the right and the anterior abdominal wall on the right. Impression 1. Extensive inflammatory changes in the right thigh including subcutaneous emphysema and small multiloculated abscess. Findings suggest a necrotizing fasciitis. Ultrasound might be considered to guide diagnostic/therapeutic drainage. 2. Colonic diverticula. ASSESSMENT/Plan: 65 yo F hx of T2DM, HTN, diabetic neuropathy, CAD s/p MS in 2017 with stent placement x 1 at [facility]) c/o 3 week right thigh abscess. CT scan showed extensive inflammatory changes in right thigh including subq emphysema and small multiloculated abscess with findings suggesting necrotizing fasciitis. Patient was admitted for necrotizing fascitis of the right posterior upper thigh inferior to the gluteal fold extending into the perineum and the mon pubis. Right posterior Medial thigh abscess -s/p incision and drainage on 07/13/19 -General Surgeon, Dr Argueta managing wound vac on right thigh and dressing changes recommendations for suprapubic wound -Continue Zosyn. -added doxycycline day #1 for MSSA -PRN Pain meds -Wound culture MSSA and corynebacterium, Globicatella sanguinis. -Patient does not think she can care for the wounds at home, and open to placement. Uncontrolled T2DM with diabetic neuropathy -increased Levemir to 20 units sq bid to goal of <150mg/dl post prandial and <100 pre-prandial -on lispro ac and sliding scale -on consistent carbs diet -FS AC and HS with [facility] coverage. CAD with Hx of MS in 2017 with stent placement -continued on home meds -atorvastatin 80 and plavix 75 daily -no acute ischemic complaints, but on nitroglycerin SL tab PRN Hypertension -SBp 120-140mmHg -keep sbp goal <130mmHg Colonic diverticula -no symptoms Tobacco abuse -10 pack years -refused tobacco cessaiton counselling and nicotine replacement. Obesity -34.2 BMI -outpt referral for weight loss Metabolic Syndrome -DM2, Obesity, HTN -optimize meds -outpt fu w pcp for routine lipid and A1c monitoring -encourage weight loss program. disposition: placement for wound care, per pt preference. VS, I&O, 24H, Fishbone Vital Signs/I&O Vital Signs Date Time Temp Pulse Resp B/P (MAP) Pulse Ox O2 Delivery O2 Flow Rate FiO2 07/17/20 06:00 98.0 66 17 127/65 (85) 96 Room Air 07/14/20 05:56 2.0 I&O- Last 24 Hours up to 6 AM 07/17/20 06:00 Intake Total 1720 ml Output Total 0 ml Balance 1720 ml Laboratory Data 24H LABS Laboratory Tests 2 07/16/20 11:21: Bedside Glucose (Misc Panel) 210H 07/16/20 16:45: Bedside Glucose (Misc Panel) 200H 07/16/20 20:30: Bedside Glucose (Misc Panel) 178H 07/17/20 05:35: Immature Granulocyte % (Auto) , Neutrophils (%) (Auto) , Nucleated Red Blood Cells % (auto) 0.0, Neutrophils 63, Band Neutrophils 1, Lymphocytes (Manual) 26, Monocytes (Manual) 3, Eosinophils (Manual) 3, Basophils (Manual) 1, Metamyelocytes 1H, Atypical Lymphocytes 2, Hypochromasia 1+, Platelet Estimate NORMAL, Anion Gap 3L, Glomerular Filtration Rate > 60.0, Calcium Level 8.3L CBC/BMP Laboratory Tests 07/17/20 05:35 Microbiology Microbiology 07/13/20 Urine Culture - Final, Complete 07/13/20 Gram Stain - Final, Complete 07/13/20 Wound Culture - Final, Complete Staphylococcus Aureus Globicatella Sanguinis Corynebacterium Species 07/13/20 Blood Culture - Preliminary, Resulted No Growth after 72 hours. All specime... KERRY KIDD MD Jul 17, 2020 07:23
[2020-07-17] MEDS: LEVEMIR (INSULIN DETEMIR) 1 UNITS/0.01ML SC SCH ×2 (08:10→21:04)
[2020-07-17] MEDS: DOXYCYCLINE HYCLATE 100 MG in D5W MINI-BAG PLUS 100 ML IV SCH ×2 (08:10→21:01)
[2020-07-17] MEDS: ASPIRIN 81 MG ENTERIC TAB PO SCH (08:11)
[2020-07-17] MEDS: HumaLOG INSULIN (NovoLOG) PER UNIT SC SCH ×7 (08:11→21:00)
[2020-07-17] MEDS: METOPROLOL TART 25 MG TABLET PO SCH ×2 (08:12→18:43)
[2020-07-17] MEDS: PREGABALIN 75 MG CAP(LYRICA) PO SCH ×3 (08:12→21:03)
[2020-07-17] MEDS: DOCUSATE SODIUM 100MG CAPSULE PO SCH ×2 (08:12→21:03)
[2020-07-17 14:00] VITALS: BP 120/64
[2020-07-17] MEDS: ATORVASTATIN 20 MG TAB PO SCH (21:02)
[2020-07-17 22:00] VITALS: BP 122/62
[2020-07-18] MEDS: PIPERACILLIN/TAZOBACTAM SOD 4.5 GM in D5W MINI-BAG PLUS 50 ML IV SCH ×4 (04:02→22:35)
[2020-07-18 06:00] VITALS: BP 127/61
--- NOTE | 2020-07-18 07:16 | IPNPDOC ---
Date Seen The patient was seen on 07/18/20. Progress Note pt will be changed to alc status / snf for subacute placement. VS, I&O, 24H, Fishbone Vital Signs/I&O Vital Signs Date Time Temp Pulse Resp B/P (MAP) Pulse Ox O2 Delivery O2 Flow Rate FiO2 07/18/20 06:00 98.6 67 18 127/61 (83) 99 Room Air 07/14/20 05:56 2.0 I&O- Last 24 Hours up to 6 AM 07/18/20 06:00 Intake Total 2180 ml Balance 2180 ml Laboratory Data 24H LABS Laboratory Tests 2 07/17/20 11:57: Bedside Glucose (Misc Panel) 288H 07/17/20 16:26: Bedside Glucose (Misc Panel) 173H 07/17/20 20:21: Bedside Glucose (Misc Panel) 184H 07/18/20 06:28: CBC/BMP Microbiology Microbiology 07/13/20 Urine Culture - Final, Complete 07/13/20 Gram Stain - Final, Complete 07/13/20 Wound Culture - Final, Complete Staphylococcus Aureus Globicatella Sanguinis Corynebacterium Species 07/13/20 Blood Culture - Preliminary, Resulted No Growth after 72 hours. All specime... KERRY KIDD MD Jul 18, 2020 07:16
[2020-07-18 07:20] LABS: BASO # 0.1 10^3/uL (0.0-0.2); BASO % 0.6 % (0.0-1.0); EOS # 0.2 10^3/uL (0.0-0.5); EOS % 1.6 % (0.0-3.0); HEMOGLOBIN 10.3 g/dl (12.0-15.5); LYMPH # 3.9 10^3/uL (1.5-5.0); MEAN CORPUSCULAR HEMOGLOBIN 27.7 pg (27.0-33.0); MEAN CORPUSCULAR HGB CONC 30.3 g/dl (32.0-36.5); MEAN CORPUSCULAR VOLUME 91.4 fl (80.0-96.0); MONO # 0.8 10^3/uL (0.0-0.8); MONO % 5.9 % (0.0-5.0); NEUTROPHILS # 8.3 10^3/uL (1.5-8.5); NEUTROPHILS % 59.6 % (36.0-66.0); PLATELET COUNT, AUTOMATED 366 10^3/uL (150-450); RED BLOOD COUNT 3.72 10^6/uL (4.00-5.40); WHITE BLOOD COUNT 13.9 10^3/uL (4.0-10.0)
[2020-07-18 07:21] LABS: CALCIUM LEVEL 8.3 MG/DL (8.8-10.2); CREATININE FOR GFR 1.01 MG/DL (0.55-1.30); GLOMERULAR FILTRATION RATE 58.6 (>45)
[2020-07-18] MEDS: HumaLOG INSULIN (NovoLOG) PER UNIT SC SCH ×7 (07:31→20:06)
[2020-07-18] MEDS: DOXYCYCLINE HYCLATE 100 MG in D5W MINI-BAG PLUS 100 ML IV SCH (08:11)
[2020-07-18] MEDS: DOCUSATE SODIUM 100MG CAPSULE PO SCH ×2 (08:12→20:05)
[2020-07-18] MEDS: LEVEMIR (INSULIN DETEMIR) 1 UNITS/0.01ML SC SCH ×2 (08:12→20:07)
[2020-07-18] MEDS: PREGABALIN 75 MG CAP(LYRICA) PO SCH ×3 (08:12→20:05)
[2020-07-18] MEDS: METOPROLOL TART 25 MG TABLET PO SCH ×2 (08:13→17:31)
[2020-07-18] MEDS: ASPIRIN 81 MG ENTERIC TAB PO SCH (08:13)
[2020-07-18] MEDS: NORCO, ANEXSIA 5/325MG TABLET (HYDROcodone/ACETAMINOPHEN) PO PRN (08:14)
[2020-07-18 14:00] VITALS: BP 111/47
[2020-07-18] MEDS: ATORVASTATIN 20 MG TAB PO SCH (20:05)
[2020-07-18 22:00] VITALS: BP 135/62
[2020-07-19] MEDS: PIPERACILLIN/TAZOBACTAM SOD 4.5 GM in D5W MINI-BAG PLUS 50 ML IV SCH ×3 (05:11→16:28)
[2020-07-19 06:00] VITALS: BP 132/61
[2020-07-19 06:49] LABS: BASO # 0.1 10^3/uL (0.0-0.2); BASO % 0.6 % (0.0-1.0); EOS # 0.3 10^3/uL (0.0-0.5); EOS % 2.1 % (0.0-3.0); HEMATOCRIT 32.1 % (36.0-47.0); HEMOGLOBIN 9.8 g/dl (12.0-15.5); LYMPH # 3.8 10^3/uL (1.5-5.0); LYMPH % 28.1 % (24.0-44.0); MEAN CORPUSCULAR HEMOGLOBIN 27.5 pg (27.0-33.0); MEAN CORPUSCULAR HGB CONC 30.5 g/dl (32.0-36.5); MEAN CORPUSCULAR VOLUME 89.9 fl (80.0-96.0); MONO # 0.9 10^3/uL (0.0-0.8); MONO % 6.7 % (0.0-5.0); NEUTROPHILS # 8.1 10^3/uL (1.5-8.5); NEUTROPHILS % 59.8 % (36.0-66.0); PLATELET COUNT, AUTOMATED 346 10^3/uL (150-450); RED BLOOD COUNT 3.57 10^6/uL (4.00-5.40); WHITE BLOOD COUNT 13.6 10^3/uL (4.0-10.0)
[2020-07-19 07:24] LABS: CALCIUM LEVEL 8.2 MG/DL (8.8-10.2); CREATININE FOR GFR 1.07 MG/DL (0.55-1.30); GLOMERULAR FILTRATION RATE 54.8 (>45); POTASSIUM SERUM 4.6 MEQ/L (3.5-5.1)
[2020-07-19] MEDS: HumaLOG INSULIN (NovoLOG) PER UNIT SC SCH ×7 (07:48→20:40)
[2020-07-19] MEDS: LEVEMIR (INSULIN DETEMIR) 1 UNITS/0.01ML SC SCH ×2 (07:49→20:47)
[2020-07-19] MEDS: PREGABALIN 75 MG CAP(LYRICA) PO SCH ×3 (07:50→20:47)
[2020-07-19] MEDS: METOPROLOL TART 25 MG TABLET PO SCH ×2 (07:50→17:50)
[2020-07-19] MEDS: ASPIRIN 81 MG ENTERIC TAB PO SCH (07:50)
[2020-07-19] MEDS: DOCUSATE SODIUM 100MG CAPSULE PO SCH ×2 (07:50→20:46)
--- NOTE | 2020-07-19 08:38 | IPN ---
PROGRESS NOTE DATE: 07/17/2020 SUBJECTIVE: The patient is now four days postop from drainage of a large upper inner thigh abscess with some air tracking, but no evidence of tracking infection up to the lower anterior abdominal wall. A wound VAC was ordered for the thigh wound yesterday and is in place. OBJECTIVE: VITAL SIGNS: The patient has been afebrile over the past 24 hours. Her pulse is in the 60s to low 80s and her blood pressure is excellent. Room air saturation is normal. INTAKE AND OUTPUT: Show that yesterday she had 1670 recorded in and her urine output was not recorded. EXTREMITIES: Shows that the wound VAC is in place and functioning. ABDOMEN: Soft and nontender. Her lower abdominal incision at the midline is dressed. LABORATORY DATA: Show that her white count is 13, hemoglobin 10, hematocrit 32, and a platelet count of 345,000. Differential count shows 63% neutrophils, 1 band, and 26 lymphocytes. Chemistry profile shows a sodium of 137, potassium 5.0, chloride 108, CO2 of 26, BUN of 12, creatinine 0.95, and a glucose of 193. Fingerstick blood sugars have ranged over the last 24 hours from approximately 180 to 300. Microbiology shows that she is growing Staphylococcus aureus with some Globicatella sanguinis and corynebacterium species. IMPRESSION: The patient appears to be doing very well with no evidence of acute infection. Her wound VAC is in place on her thigh and the abdominal wound is being addressed with saline gauze dressing. RECOMMENDATIONS: I would continue with the wound VAC and the wound dressings. The patient can be discharged whenever the hospitalist feels that her diabetes is under adequate management. I think conversion to oral antibiotics would certainly be a reasonable consideration. BRENDA
--- NOTE | 2020-07-19 09:00 | IPN ---
PROGRESS NOTE DATE: 07/18/2020 HISTORY: The patient is now postop day #5 from drainage and debridement of a large abscess of the upper inner thigh. She has a wound VAC in place and is having a small lower abdominal incision treated with saline gauze dressings. Vital signs show that she has been afebrile over the past 24 hours. Her pulse is generally in the 60s and 70s. Blood pressure is excellent and her room air saturation is normal. Intake and output show that yesterday she had 2200 in and her urine output is unrecorded. PHYSICAL EXAMINATION: Physical exam shows that her lower abdominal incision is clean and beginning to show some early signs of healing. There is no sign of acute infection. The wound VAC dressing is nicely applied to her thigh and there is some mild tenderness but no evidence of any residual redness or fluctuance in her thigh. Laboratory studies today show a hemoglobin of 10, hematocrit 34 and a platelet count of 366,000. Her differential count is normal. Chemistry profile shows a sodium of 138, potassium 5.0, chloride 108, CO2 of 26, BUN of 13, creatinine 1.0 and a glucose of 176. IMPRESSION: Patient appears quite stable from my standpoint. Her blood sugars remain somewhat erratic and higher than ideal. RECOMMENDATIONS: At this point, I believe she could be discharged home with local wound care to her wounds without any difficulty. The antibiotics and diabetes management are at the discretion of the hospitalist. BRENDA
[2020-07-19] MEDS ORDERED: HYDR-3715 PO (12:24)
[2020-07-19] MEDS ORDERED: AUGM875T28 PO (12:25)
[2020-07-19] MEDS ORDERED: BACI1CAP PO (12:25)
[2020-07-19] MEDS ORDERED: DOXY100C PO (12:25)
[2020-07-19 14:00] VITALS: BP 130/61
[2020-07-19] MEDS: AUGMENTIN 875 MG TAB PO SCH (17:49)
[2020-07-19] MEDS: DOXYCYCLINE HYCLATE 100MG TABLET PO SCH (17:50)
[2020-07-19 19:50] VITALS: BP 139/68
[2020-07-19] MEDS: ATORVASTATIN 20 MG TAB PO SCH (20:46)
[2020-07-20 06:12] VITALS: BP 134/67
[2020-07-20 06:41] LABS: BASO # 0.1 10^3/uL (0.0-0.2); BASO % 0.4 % (0.0-1.0); EOS # 0.3 10^3/uL (0.0-0.5); EOS % 1.7 % (0.0-3.0); HEMATOCRIT 33.5 % (36.0-47.0); HEMOGLOBIN 10.6 g/dl (12.0-15.5); LYMPH # 4.2 10^3/uL (1.5-5.0); LYMPH % 25.7 % (24.0-44.0); MEAN CORPUSCULAR HEMOGLOBIN 28.6 pg (27.0-33.0); MEAN CORPUSCULAR HGB CONC 31.6 g/dl (32.0-36.5); MEAN CORPUSCULAR VOLUME 90.3 fl (80.0-96.0); MONO # 1.1 10^3/uL (0.0-0.8); MONO % 6.6 % (0.0-5.0); NEUTROPHILS # 10.3 10^3/uL (1.5-8.5); NEUTROPHILS % 63.8 % (36.0-66.0); PLATELET COUNT, AUTOMATED 369 10^3/uL (150-450); RED BLOOD COUNT 3.71 10^6/uL (4.00-5.40); WHITE BLOOD COUNT 16.2 10^3/uL (4.0-10.0)
[2020-07-20 07:09] LABS: CALCIUM LEVEL 8.3 MG/DL (8.8-10.2); CREATININE FOR GFR 1.08 MG/DL (0.55-1.30); GLOMERULAR FILTRATION RATE 54.2 (>45); POTASSIUM SERUM 4.8 MEQ/L (3.5-5.1)
[2020-07-20] MEDS: HumaLOG INSULIN (NovoLOG) PER UNIT SC SCH ×2 (08:33→08:34)
[2020-07-20] MEDS: DOCUSATE SODIUM 100MG CAPSULE PO SCH (08:34)
[2020-07-20] MEDS: ASPIRIN 81 MG ENTERIC TAB PO SCH (08:34)
[2020-07-20 08:35] VITALS: BP 134/67
[2020-07-20] MEDS: AUGMENTIN 875 MG TAB PO SCH (08:35)
[2020-07-20] MEDS: METOPROLOL TART 25 MG TABLET PO SCH (08:35)
[2020-07-20] MEDS: LEVEMIR (INSULIN DETEMIR) 1 UNITS/0.01ML SC SCH (08:35)
[2020-07-20] MEDS: DOXYCYCLINE HYCLATE 100MG TABLET PO SCH (08:35)
[2020-07-20] MEDS: PREGABALIN 75 MG CAP(LYRICA) PO SCH (08:35)
--- NOTE | 2020-07-20 14:17 | DS.PDOC ---
Discharge Summary General Date of Admission Jul 13, 2020 at 20:31 Date of Discharge 07/20/20 Discharge Summary WEB DEVELOPER: GENERAL SURGEON, Dr. Argueta DISCHARGE DIAGNOSES: DISCHARGE MEDICATIONS: Please see below. ALLERGIES: Please see below. DISCHARGE INSTRUCTIONS: Wound VAC management per general surgery. Primary care physician and general surgical appointment within 7 days of hospital discharge HOSPITAL COURSE: 65-year-old female with type 2 diabetes, hypertension, diabetic neuropathy, CAD, NE with stent, presents to emergency room with a 3 week history of worsening erythema, tenderness of the right inner thigh accompanied with chills without documented fevers. In the emergency room she was found to be tachycardic with white count of 17,000. CRP of [address] of the pelvis showing subcutaneous emphysema and multiloculated abscesses consistent with necrotizing fasciitis. She was given intravenous fluids and Unasyn fentanyl for pain control and general surgeon was consulted for incision and drainage. Hospitalist was called to admit for uncontrolled type 2 diabetes with A1c of 13.9, and glucose of 420 and right thigh abscess extending into the suprapubic area. Patient was optimized for incision and drainage and underwent incision and drainage of the right thigh and groin. On 07/13/2020, with white count decreasing to 12.3 on 07/15/2020. One culture grew staph aureus will be Catelli sanguinous and corynebacteria. Blood culture was negative for 5 days and urine culture was contaminated.. She was on intravenous Zosyn, which was transitioned to Augmentin and doxycycline. She remained afebrile with no recurrent purulent drainage. Wound VAC was placed on the right medial thigh and dressing changes to the suprapubic area. Patient could not take care of herself at home and was th erefore placed in the detention to complete her treatment. For the uncontrolled type 2 diabetes. She was given Levemir insulin, which was titrated to 20 units subcutaneous twice a day and she was resumed on all her home medications including aspirin, atorvastatin, nitroglycerin as needed and meto prolol. While awaiting placement. She was changed to a LC status and 07/18/2020, sequelae discharged in stable condition on 07/20/2020. PHYSICAL EXAMINATION ON DISCHARGE: VITAL SIGNS: Please see below. GENERAL: AAOX3 no distress HEENT: no jvd, cervical LAD or thyromegaly CARDIOVASCULAR: S1S2 RRR RESPIRATORY: AEBE CTAB ABDOMINAL: suprapubic wound w serous drainage on dressing. no erythema or tenderrness. no purulence. +BS x 4quadrants no rebound or guarding soft EXTREMITIES: Right medial thigh w wound vac no erythema, tenderness or crepitus. no edema LABORATORY DATA: Please see below. IMAGING: Exam: CT Pelvis With Contrast Exam date and time: 07/13/2020 6:09 PM Age: 65 years old Clinical indication: Other: Abscess/? Gangrene please include right thigh TECHNIQUE: Imaging protocol: Computed tomography images of the pelvis with intravenous contrast. Radiation optimization: All CT scans at this facility use at least one of these dose optimization techniques: automated exposure control; mA and/or kV adjustment per patient size (includes targeted exams where dose is matched to clinical indication); or iterative reconstruction. Contrast material: ISOVUE 370; Contrast volume: 100 ml; Contrast route: INTRAVENOUS (IV); COMPARISON: CT ABD PELVIS W/O CONTRAST 05/03/2019 4:19 AM FINDINGS: Stomach and bowel: Scattered colonic diverticula. Appendix: Not seen as a separate structure. Intraperitoneal space: There is a mesh applied to the anterior peritoneal surface of the anterior abdominal wall. No significant fluid collection. Lymph nodes: Unremarkable. No enlarged lymph nodes. Urinary bladder: Normal. No mass. Reproductive: Normal as visualized. Bones/joints: Unremarkable. No acute fracture. No dislocation. Soft tissues: Stranding of the subcutaneous fat of the right upper thigh posteriorly. Multiloculated Air-fluid collection noted within the thigh posteriorly (inferior to the gluteal fold on the right) measuring approximately 4.3 by 2 by 3.5-4 cm. Subcutaneous emphysema dissects from the abscess into the adjacent soft tissues of the thigh extending superiorly into the perineum, the mons pubis on the right and the anterior abdominal wall on the right. IMPRESSION: Extensive inflammatory changes in the right thigh including subcutaneous emphysema and small multiloculated abscess. Findings suggest a necrotizing fasciitis. Ultrasound might be considered to guide diagnostic/therapeutic drainage. 2. Colonic diverticula. Electronically signed by: Abbie Tierney On 07/13/2020 18:47:45 PM TIME SPENT ON DISCHARGE: 30minutes. Vital Signs/I&Os Vital Signs Date Time Temp Pulse Resp B/P (MAP) Pulse Ox O2 Delivery O2 Flow Rate FiO2 07/20/20 08:35 82 134/67 07/20/20 06:12 98.6 20 98 Room Air 07/14/20 05:56 2.0 I&O- Last 24 Hours up to 6 AM 07/20/20 06:00 Intake Total 1200 ml Output Total 0 ml Balance 1200 ml Laboratory Data Labs 24H Laboratory Tests 2 07/19/20 16:48: Bedside Glucose (Misc Panel) 177H 07/19/20 19:53: Bedside Glucose (Misc Panel) 215H 07/20/20 06:25: Immature Granulocyte % (Auto) 1.8, Neutrophils (%) (Auto) 63.8, Lymphocytes (%) (Auto) 25.7, Monocytes (%) (Auto) 6.6H, Eosinophils (%) (Auto) 1.7, Basophils (%) (Auto) 0.4, Neutrophils # (Auto) 10.3H, Lymphocytes # (Auto) 4.2, Monocytes # (Auto) 1.1H, Eosinophils # (Auto) 0.3, Basophils # (Auto) 0.1, Nucleated Red Blood Cells % (auto) 0.0, Anion Gap 5L, Glomerular Filtration Rate 54.2, Calcium Level 8.3L CBC/BMP Laboratory Tests 07/20/20 06:25 FSBS Laboratory Tests Test 07/19/20 16:48 07/19/20 19:53 Range/Units Bedside Glucose (Misc Panel) 177 215 80-115 MG/DL Microbiology Microbiology 07/13/20 Urine Culture - Final, Complete 07/13/20 Gram Stain - Final, Complete 07/13/20 Wound Culture - Final, Complete Staphylococcus Aureus Globicatella Sanguinis Corynebacterium Species 07/13/20 Blood Culture - Final, Complete NO GROWTH AFTER 5 DAYS Discharge Medications Scheduled Amoxicillin/Potassium Clav (Augmentin 875-125 Tablet) 1 Each Tablet, 1 TAB PO BID Aspirin (Aspirin EC) 81 Mg Tab, 81 MG PO DAILY, (Reported) Atorvastatin Calcium (Atorvastatin Calcium) 80 Mg Tablet, 80 MG PO QHS, (Reported) Bacillus Coagulans (Bacid with Lactospore) 1 Each Capsule, 1 CAP PO WMHS Clopidogrel Bisulfate (Clopidogrel) 75 Mg Tablet, 75 MG PO DAILY, (Reported) Doxycycline Hyclate (Doxycycline Hyclate) 100 Mg Capsule, 1 CAP PO BID Insulin Glargine,Hum.rec.anlog (Lantus Solostar) 100 Unit/1 Ml Insuln.pen, 1 DOSE INJ QAM, (Reported) SLIDING SCALE Metoprolol Tartrate (Metoprolol Tartrate) 25 Mg Tab, 25 MG PO BID, (Reported) TAKES AT 1000 AND 1730 Pregabalin (Lyrica) 75 Mg Cap, 75 MG PO TID, (Reported) TAKES AT 1000, 1730, & 2200 Scheduled PRN Acetaminophen (Tylenol) 325 Mg Tablet, 650 MG PO QID PRN for PAIN, (Reported) Hydrocodone/Acetaminophen (Hydrocodone-Acetamin 5-325 mg) 1 Each Tablet, 1 TAB PO Q4HP PRN for PAIN LEVEL 7-10 Nitroglycerin (Nitroglycerin) 0.4 Mg Sub, 0.4 MG SL NITRO PRN for CHEST PAIN, (Reported) Allergies Coded Allergies: TAPE (Verified Allergy, Unknown, SILK TAPE, 04/26/20) KERRY KIDD MD Jul 20, 2020 14:17
== END 2020-07-20 11:00 | disposition home or self-care (01) | DRG 572 ==
LOC: M ED 14:30 → M ED INP 20:31 → M PCU 07-14 00:50 → M MS5PR 07-15 14:20
PROVIDERS: ADMIT Family Medicine; ATTEND General Practice
PROC: 0JBL0ZZ Excision of Right Upper Leg Subcutaneous Tissue and Fascia, Open Approach (ICD-10-PCS; principal; 2020-07-13 22:09)
DX: L02.415 Cutaneous abscess of right lower limb (principal); E11.65 Type 2 diabetes mellitus with hyperglycemia; E11.40 Type 2 diabetes mellitus with diabetic neuropathy, unspecified; I10 Essential (primary) hypertension; I25.10 Atherosclerotic heart disease of native coronary artery without angina pectoris; I25.2 Old myocardial infarction; Z95.2 Presence of prosthetic heart valve; K57.30 Diverticulosis of large intestine without perforation or abscess without bleeding; Z79.899 Other long term (current) drug therapy; Z79.82 Long term (current) use of aspirin; B95.61 Methicillin susceptible Staphylococcus aureus infection as the cause of diseases classified elsewhere; F17.200 Nicotine dependence, unspecified, uncomplicated; E66.9 Obesity, unspecified; Z68.32 Body mass index [BMI] 32.0-32.9, adult

== ENCOUNTER 2020-09-20 20:14 | Emergency (ER) | payer MEDICARE, MEDICAID ==
[~2020-09-20] VITALS: Ht 160 cm; Wt 88.8 kg
[~2020-09-20 20:14] MED LIST changes: +ATOR80TA59 PO; +AUGM875T28 PO; +BACI1CAP PO; +DOXY100C PO; +GLIP10TA6; +HYDR-3715 PO; +LANTINJ4 INJ; -LISI-542 PO; +LISI-898 PO
[2020-09-20 20:15] VITALS: BP 158/70
--- NOTE | 2020-09-20 21:35 | REPVR ---
PROCEDURE INFORMATION: Exam: US Duplex Right Lower Extremity Veins, Limited Exam date and time: 09/20/2020 9:11 PM Age: 65 years old Clinical indication: Edema, localized; Lower extremity, right; Additional info: Swelling TECHNIQUE: Imaging protocol: Real-time Duplex ultrasound of the Right Lower Extremity with 2-D pulliam scale, color Doppler flow and spectral waveform analysis with image documentation. Limited exam was focused on the right lower extremity veins. COMPARISON: US Duplex, Ext,LOWER veins,unilat 03/28/2020 6:10 PM FINDINGS: Right deep veins: Unremarkable. The common femoral, femoral, proximal profunda femoral and popliteal veins are patent without thrombus. Normal Doppler waveforms. Normal compressibility and/or augmentation response. Right superficial veins: Unremarkable. Saphenofemoral junction is patent without thrombus. Soft tissues: Unremarkable. IMPRESSION: No evidence of deep vein thrombosis. Electronically signed by: Clarence Bee On 09/20/2020 21:35:46 PM
--- NOTE | 2020-09-20 22:04 | REPVR ---
PROCEDURE INFORMATION: Exam: XR Left Hip Exam date and time: 09/20/2020 9:47 PM Age: 65 years old Clinical indication: Hip pain; Left hip TECHNIQUE: Imaging protocol: XR Left hip. Views: 2 or 3 views hip with pelvis when performed. COMPARISON: CT Pelvis with contrast 07/13/2020 5:57 PM FINDINGS: Bones/joints: There is no evidence of fracture or dislocation. There is osteophyte formation of the greater trochanter consistent with chronic change. There is narrowing of the disc spaces lower lumbar spine with osteophyte formation as well. Soft tissues: Unremarkable. IMPRESSION: Chronic changes. Electronically signed by: Clarence Bee On 09/20/2020 22:05:26 PM
[2020-09-20] MEDS ORDERED: traMADol 50 MG TAB PO ONE (22:30)
[2020-09-20] MEDS ORDERED: TRAM50TA2 PO (22:32)
== END 2020-09-20 22:54 | disposition home or self-care (01) ==
LOC: M ED 20:14
DX: M16.12 Unilateral primary osteoarthritis, left hip (principal); R22.41 Localized swelling, mass and lump, right lower limb; I11.0 Hypertensive heart disease with heart failure; I25.2 Old myocardial infarction; E11.40 Type 2 diabetes mellitus with diabetic neuropathy, unspecified; E78.5 Hyperlipidemia, unspecified; R56.9 Unspecified convulsions; K21.9 Gastro-esophageal reflux disease without esophagitis; M48.061 Spinal stenosis, lumbar region without neurogenic claudication; M25.78 Osteophyte, vertebrae; H40.1120 Primary open-angle glaucoma, left eye, stage unspecified; F17.200 Nicotine dependence, unspecified, uncomplicated; Z91.048 Other nonmedicinal substance allergy status; Z79.82 Long term (current) use of aspirin; Z79.899 Other long term (current) drug therapy; Z79.4 Long term (current) use of insulin

== ENCOUNTER 2021-06-26 11:44 | Inpatient (IN) | payer MEDICARE, MEDICAID ==
[~2021-06-26] VITALS: Ht 162.6 cm; Wt 74.9 kg
[~2021-06-26 11:44] MED LIST changes: +DOXY-443 PO; -DOXY100C PO; +DOXY100C3 PO; -DOXY100C37 PO; -LANTINJ4 INJ; +LANTINJ4 SC; -LISI-898 PO; +LISI5TAB11 PO; +TIZA10TA PO; -TIZA4TAB4 PO; +TRAM50TA2 PO
[2021-06-26] MEDS ORDERED: HUMA100I5 SC (12:00)
[2021-06-26] MEDS ORDERED: ceFAZolin SOD 2 GM in IV 1 EA IV ONE (15:20)
[2021-06-26] MEDS ORDERED: fentaNYL 100 MCG/2 ML INJECTION IV ONE (15:20)
[2021-06-26 16:17] LABS: BASO # 0.1 10^3/uL (0.0-0.2); BASO % 0.3 % (0.0-1.0); EOS % 0.1 % (0.0-3.0); HEMATOCRIT 40.1 % (36.0-47.0); HEMOGLOBIN 12.8 g/dl (12.0-15.5); LYMPH # 1.4 10^3/uL (1.5-5.0); LYMPH % 6.6 % (24.0-44.0); MEAN CORPUSCULAR HEMOGLOBIN 28.5 pg (27.0-33.0); MEAN CORPUSCULAR HGB CONC 31.9 g/dl (32.0-36.5); MEAN CORPUSCULAR VOLUME 89.3 fl (80.0-96.0); MONO # 1.5 10^3/uL (0.0-0.8); MONO % 6.7 % (2.0-8.0); NEUTROPHILS # 18.5 10^3/uL (1.5-8.5); NEUTROPHILS % 85.4 % (36.0-66.0); PLATELET COUNT, AUTOMATED 354 10^3/uL (150-450); RED BLOOD COUNT 4.49 10^6/uL (4.00-5.40); WHITE BLOOD COUNT 21.7 10^3/uL (4.0-10.0)
[2021-06-26 16:28] LABS: INR 1.11; PROTHROMBIN TIME 14.7 SECONDS (12.7-14.5)
[2021-06-26 16:29] LABS: PARTIAL THROMBOPLASTIN TIME 37.6 SECONDS (25.9-37.0)
[2021-06-26 16:52] LABS: ERYTHROCYTE SEDIMENTATION RATE 71 mm/hr (0-30)
[2021-06-26] MEDS ORDERED: HumaLOG INSULIN (NovoLOG) PER UNIT SC STA ×2 (17:03→17:30)
[2021-06-26 17:04] LABS: ALBUMIN 2.1 GM/DL (3.2-5.2); BILIRUBIN,TOTAL 0.4 MG/DL (0.2-1.0); C REACTIVE PROTEIN QUANTITATIV 35.2 MG/DL (0.00-0.30); CALCIUM LEVEL 9.5 MG/DL (8.8-10.2); CREATININE FOR GFR 1.64 MG/DL (0.55-1.30); GLOMERULAR FILTRATION RATE 33.4 (>45); POTASSIUM SERUM 5.3 MEQ/L (3.5-5.1); TOTAL PROTEIN 6.8 GM/DL (6.4-8.2)
[2021-06-26] MEDS ORDERED: HOME MED LIST COMPLETE! XX SCH (17:05)
[2021-06-26] MEDS ORDERED: NS 1,000 ML IV ONE (17:30)
[2021-06-26] MEDS ORDERED: NITROGLYCERIN 0.4 MG SUBL TABLET SL PRN (17:50)
[2021-06-26] MEDS ORDERED: GLUCOSE 4GM CHEW TABLET PO PRN (17:50)
[2021-06-26] MEDS ORDERED: GLUCAGON INJ 1MG VIAL SC PRN (17:50)
[2021-06-26] MEDS ORDERED: DEXTROSE 50% 50 ML SYRINGE IV PRN (17:50)
[2021-06-26] MEDS: NS 1,000 ML IV SCH (18:13)
[2021-06-26 18:19] LABS: RSV AMPLIFICATION NEGATIVE (NEGATIVE)
[2021-06-26 19:33] LABS: HEMOGLOBIN A1c 13.4 %
[2021-06-26 20:18] VITALS: BP 145/71
[2021-06-26] MEDS: LACTOBACILLUS ACIDOPHILUS CAP (BACID) PO SCH (20:32)
[2021-06-26] MEDS: ATORVASTATIN 20 MG TAB PO SCH (20:46)
[2021-06-26] MEDS: HumaLOG INSULIN (NovoLOG) PER UNIT SC SCH (20:46)
[2021-06-26] MEDS: LEVEMIR (INSULIN DETEMIR) 1 UNITS/0.01ML SC SCH (20:47)
[2021-06-26] MEDS: CLINDAMYCIN 600 MG in IV 1 EA IV SCH (21:09)
[2021-06-26] MEDS: PREGABALIN 75 MG CAP(LYRICA) PO SCH (21:09)
[2021-06-27] VITALS (9 sets, daily range): BP systolic 103–127; BP diastolic 57–70
[2021-06-27] MEDS: CLINDAMYCIN 600 MG in IV 1 EA IV SCH ×3 (03:57→15:45)
[2021-06-27] MEDS: NS 1,000 ML IV SCH ×3 (03:57→23:11)
[2021-06-27 06:33] LABS: HEMATOCRIT 31.9 % (36.0-47.0); MEAN CORPUSCULAR HEMOGLOBIN 28.6 pg (27.0-33.0); MEAN CORPUSCULAR VOLUME 89.4 fl (80.0-96.0); PLATELET COUNT, AUTOMATED 283 10^3/uL (150-450); RED BLOOD COUNT 3.57 10^6/uL (4.00-5.40); WHITE BLOOD COUNT 16.6 10^3/uL (4.0-10.0)
[2021-06-27 06:39] LABS: HEMOGLOBIN 10.2 g/dl (12.0-15.5)
[2021-06-27 07:02] LABS: ALBUMIN 1.4 GM/DL (3.2-5.2); BILIRUBIN,TOTAL 0.2 MG/DL (0.2-1.0); CALCIUM LEVEL 8.4 MG/DL (8.8-10.2); CREATININE FOR GFR 1.63 MG/DL (0.55-1.30); GLOMERULAR FILTRATION RATE 33.6 (>45); POTASSIUM SERUM 4.2 MEQ/L (3.5-5.1); TOTAL PROTEIN 4.8 GM/DL (6.4-8.2)
[2021-06-27] MEDS: ASPIRIN 81MG ENTERIC TABLET PO SCH (08:03)
[2021-06-27] MEDS: HEPARIN SOD (PORCINE) 5000UNITS/ML 1ML VIAL/SYRINGE SQ SCH ×2 (08:03→21:40)
[2021-06-27] MEDS: CLOPIDOGREL 75 MG TAB PO SCH (08:03)
[2021-06-27] MEDS: HumaLOG INSULIN (NovoLOG) PER UNIT SC SCH ×4 (08:10→21:00)
[2021-06-27] MEDS: LACTOBACILLUS ACIDOPHILUS CAP (BACID) PO SCH ×2 (08:10→18:39)
[2021-06-27] MEDS: LEVEMIR (INSULIN DETEMIR) 1 UNITS/0.01ML SC SCH ×2 (08:10→21:40)
[2021-06-27] MEDS: PREGABALIN 75 MG CAP(LYRICA) PO SCH ×3 (08:11→21:40)
[2021-06-27] MEDS: METOPROLOL TART 25 MG TABLET PO SCH ×2 (08:11→18:40)
[2021-06-27] MEDS ORDERED: fentaNYL 100 MCG/2 ML INJECTION As Ordered ONE (16:28)
[2021-06-27] MEDS ORDERED: LIDOCAINE 2% 100MG/5ML SDV (FOR ANES.) As Ordered ONE (16:29)
[2021-06-27] MEDS ORDERED: MIDAZOLAM INJ 2MG/2ML VIAL (J2250 PER 1MG) As Ordered ONE (16:29)
[2021-06-27] MEDS ORDERED: propofoL 200 MG/20 ML VIAL As Ordered ONE (16:29)
[2021-06-27] MEDS ORDERED: LIDOCAINE 1% SDV 30ML VIAL As Ordered ONE (17:06)
[2021-06-27] MEDS ORDERED: BUPIVACAINE HCL 0.5% 30 ML VIAL As Ordered ONE (17:06)
[2021-06-27] MEDS ORDERED: PERCOCET 5MG/325MG TAB PO PRN (18:10)
[2021-06-27] MEDS ORDERED: NS 1,000 ML IV SCH (18:10)
[2021-06-27] MEDS ORDERED: ONDANSETRON 4MG/2ML VIAL IV PRN (18:10)
[2021-06-27] MEDS ORDERED: METOCLOPRAMIDE INJ 10MG/2ML VIAL (J2765 PER 1) IV PRN (18:10)
[2021-06-27] MEDS: PIPERACILLIN/TAZOBACTAM SOD 3.375 GM in D5W MINI-BAG PLUS 50 ML IV SCH (18:40)
[2021-06-27] MEDS ORDERED: VANCOMYCIN HCL 500 MG in D5W MINI-BAG PLUS 100 ML IV ONE (21:20)
[2021-06-27] MEDS: ATORVASTATIN 20 MG TAB PO SCH (21:40)
[2021-06-27] MEDS ORDERED: VANCOMYCIN HCL 1,000 MG, VIAL MATE ADAPTER 1 EACH in NS 250 ML IV SCH (23:00)
[2021-06-28] MEDS: PIPERACILLIN/TAZOBACTAM SOD 3.375 GM in D5W MINI-BAG PLUS 50 ML IV SCH ×4 (00:47→18:35)
[2021-06-28 03:30] VITALS: BP 138/69
[2021-06-28 05:58] LABS: HEMATOCRIT 32.8 % (36.0-47.0); HEMOGLOBIN 10.1 g/dl (12.0-15.5); MEAN CORPUSCULAR HEMOGLOBIN 28.5 pg (27.0-33.0); MEAN CORPUSCULAR HGB CONC 30.8 g/dl (32.0-36.5); MEAN CORPUSCULAR VOLUME 92.4 fl (80.0-96.0); PLATELET COUNT, AUTOMATED 291 10^3/uL (150-450); RED BLOOD COUNT 3.55 10^6/uL (4.00-5.40)
[2021-06-28 06:17] LABS: ALBUMIN 1.3 GM/DL (3.2-5.2); BILIRUBIN,TOTAL 0.2 MG/DL (0.2-1.0); CALCIUM LEVEL 8.3 MG/DL (8.8-10.2); CREATININE FOR GFR 1.29 MG/DL (0.55-1.30); POTASSIUM SERUM 4.2 MEQ/L (3.5-5.1); TOTAL PROTEIN 5.6 GM/DL (6.4-8.2)
[2021-06-28 07:30] VITALS: BP 121/60
[2021-06-28] MEDS: ASPIRIN 81MG ENTERIC TABLET PO SCH (08:39)
[2021-06-28] MEDS: LACTOBACILLUS ACIDOPHILUS CAP (BACID) PO SCH ×2 (08:39→17:38)
[2021-06-28] MEDS: HumaLOG INSULIN (NovoLOG) PER UNIT SC SCH ×4 (08:39→21:00)
[2021-06-28] MEDS: CLOPIDOGREL 75 MG TAB PO SCH (08:39)
[2021-06-28] MEDS: HEPARIN SOD (PORCINE) 5000UNITS/ML 1ML VIAL/SYRINGE SQ SCH ×2 (08:39→21:32)
[2021-06-28] MEDS: LEVEMIR (INSULIN DETEMIR) 1 UNITS/0.01ML SC SCH (08:40)
[2021-06-28] MEDS: PREGABALIN 75 MG CAP(LYRICA) PO SCH ×3 (10:24→21:31)
[2021-06-28] MEDS: METOPROLOL TART 25 MG TABLET PO SCH ×2 (10:24→17:39)
[2021-06-28 11:30] VITALS: BP 124/60
[2021-06-28 14:00] VITALS: BP 134/67
[2021-06-28] MEDS ORDERED: LIDOCAINE 1% MDV 20ML VIAL As Ordered ONE (15:02)
[2021-06-28] MEDS: ACETAMINOPHEN TAB 650MG DOSE (2X325MG) PO PRN (16:22)
[2021-06-28] MEDS: VANCOMYCIN HCL 750 MG, VIAL MATE ADAPTER 1 EACH in NS 250 ML IV SCH (16:27)
[2021-06-28] MEDS: VANCOMYCIN HCL 500 MG in D5W MINI-BAG PLUS 100 ML IV SCH (17:28)
[2021-06-28 18:00] VITALS: BP 115/46
[2021-06-28] MEDS: SODIUM CHLORIDE 0.9% INJ 10 ML SYR IV SCH (19:37)
[2021-06-28] MEDS ORDERED: LEVEMIR (INSULIN DETEMIR) 1 UNITS/0.01ML SC ONE ×2 (20:20→21:00)
[2021-06-28] MEDS: ATORVASTATIN 20 MG TAB PO SCH (21:31)
[2021-06-28 22:00] VITALS: BP 121/49
[2021-06-29] MEDS: PIPERACILLIN/TAZOBACTAM SOD 3.375 GM in D5W MINI-BAG PLUS 50 ML IV SCH ×2 (00:16→05:48)
[2021-06-29] MEDS: SODIUM CHLORIDE 0.9% INJ 10 ML SYR IV SCH ×2 (05:48→17:25)
[2021-06-29 06:00] VITALS: BP 122/54
[2021-06-29 06:26] LABS: HEMATOCRIT 29.3 % (36.0-47.0); HEMOGLOBIN 9.3 g/dl (12.0-15.5); MEAN CORPUSCULAR HGB CONC 31.7 g/dl (32.0-36.5); MEAN CORPUSCULAR VOLUME 88.3 fl (80.0-96.0); PLATELET COUNT, AUTOMATED 333 10^3/uL (150-450); RED BLOOD COUNT 3.32 10^6/uL (4.00-5.40); WHITE BLOOD COUNT 13.8 10^3/uL (4.0-10.0)
[2021-06-29 06:43] LABS: ALBUMIN 1.5 GM/DL (3.2-5.2); BILIRUBIN,TOTAL 0.2 MG/DL (0.2-1.0); CREATININE FOR GFR 1.1 MG/DL (0.55-1.30); GLOMERULAR FILTRATION RATE 52.9 (>45); POTASSIUM SERUM 4.6 MEQ/L (3.5-5.1); TOTAL PROTEIN 4.6 GM/DL (6.4-8.2)
[2021-06-29] MEDS ORDERED: LEVEMIR (INSULIN DETEMIR) 1 UNITS/0.01ML SC SCH (09:00)
[2021-06-29] MEDS: HumaLOG INSULIN (NovoLOG) PER UNIT SC SCH ×4 (09:45→21:16)
[2021-06-29] MEDS: PREGABALIN 75 MG CAP(LYRICA) PO SCH ×3 (09:47→21:13)
[2021-06-29] MEDS: LACTOBACILLUS ACIDOPHILUS CAP (BACID) PO SCH ×2 (09:47→17:24)
[2021-06-29] MEDS: CLOPIDOGREL 75 MG TAB PO SCH (09:47)
[2021-06-29] MEDS: ASPIRIN 81MG ENTERIC TABLET PO SCH (09:47)
[2021-06-29] MEDS: METOPROLOL TART 25 MG TABLET PO SCH ×2 (09:48→17:24)
[2021-06-29] MEDS: HEPARIN SOD (PORCINE) 5000UNITS/ML 1ML VIAL/SYRINGE SQ SCH ×2 (09:48→21:13)
[2021-06-29] MEDS: VANCOMYCIN HCL 750 MG, VIAL MATE ADAPTER 1 EACH in NS 250 ML IV SCH (12:59)
[2021-06-29 14:00] VITALS: BP 129/57
[2021-06-29] MEDS: VANCOMYCIN HCL 500 MG in D5W MINI-BAG PLUS 100 ML IV SCH (14:38)
[2021-06-29] MEDS: ATORVASTATIN 20 MG TAB PO SCH (21:14)
[2021-06-29] MEDS: LEVEMIR (INSULIN DETEMIR) 1 UNITS/0.01ML SC SCH (21:15)
[2021-06-29 22:00] VITALS: BP 148/70
[2021-06-30] MEDS: SODIUM CHLORIDE 0.9% INJ 10 ML SYR IV SCH ×2 (05:11→17:11)
[2021-06-30 05:28] LABS: HEMATOCRIT 28.6 % (36.0-47.0); HEMOGLOBIN 9.2 g/dl (12.0-15.5); MEAN CORPUSCULAR HEMOGLOBIN 28.5 pg (27.0-33.0); MEAN CORPUSCULAR HGB CONC 32.2 g/dl (32.0-36.5); MEAN CORPUSCULAR VOLUME 88.5 fl (80.0-96.0); PLATELET COUNT, AUTOMATED 358 10^3/uL (150-450); RED BLOOD COUNT 3.23 10^6/uL (4.00-5.40); WHITE BLOOD COUNT 13.9 10^3/uL (4.0-10.0)
[2021-06-30 05:52] LABS: ALBUMIN 1.3 GM/DL (3.2-5.2); BILIRUBIN,TOTAL 0.2 MG/DL (0.2-1.0); CALCIUM LEVEL 7.8 MG/DL (8.8-10.2); CREATININE FOR GFR 1.13 MG/DL (0.55-1.30); GLOMERULAR FILTRATION RATE 51.3 (>45); POTASSIUM SERUM 5.3 MEQ/L (3.5-5.1); TOTAL PROTEIN 4.8 GM/DL (6.4-8.2)
[2021-06-30 06:00] VITALS: BP 139/64
[2021-06-30] MEDS: HumaLOG INSULIN (NovoLOG) PER UNIT SC SCH ×4 (07:35→20:33)
[2021-06-30] MEDS: LACTOBACILLUS ACIDOPHILUS CAP (BACID) PO SCH ×2 (07:35→17:08)
[2021-06-30] MEDS: PREGABALIN 75 MG CAP(LYRICA) PO SCH ×3 (08:13→21:10)
[2021-06-30] MEDS: ASPIRIN 81MG ENTERIC TABLET PO SCH (08:13)
[2021-06-30] MEDS: CLOPIDOGREL 75 MG TAB PO SCH (08:13)
[2021-06-30] MEDS: METOPROLOL TART 25 MG TABLET PO SCH ×2 (08:13→17:10)
[2021-06-30] MEDS: HEPARIN SOD (PORCINE) 5000UNITS/ML 1ML VIAL/SYRINGE SQ SCH ×2 (08:13→20:43)
[2021-06-30] MEDS ORDERED: LEVEMIR (INSULIN DETEMIR) 1 UNITS/0.01ML SC SCH ×2 (09:00→21:00)
[2021-06-30] MEDS: CIPROFLOXACIN 400 MG in IV 1 EA IV SCH (17:10)
[2021-06-30] MEDS: SODIUM CHLORIDE 0.9% INJ 10 ML SYR IV PRN (19:22)
[2021-06-30] MEDS: ATORVASTATIN 20 MG TAB PO SCH (20:43)
[2021-06-30] MEDS: LEVEMIR (INSULIN DETEMIR) 1 UNITS/0.01ML SC SCH (20:44)
[2021-06-30 22:00] VITALS: BP 153/81
[2021-07-01] VITALS (8 sets, daily range): BP systolic 119–157; BP diastolic 66–74
[2021-07-01] MEDS: CIPROFLOXACIN 400 MG in IV 1 EA IV SCH (05:23)
[2021-07-01] MEDS: SODIUM CHLORIDE 0.9% INJ 10 ML SYR IV SCH ×2 (05:23→18:17)
[2021-07-01 05:41] LABS: HEMATOCRIT 29.1 % (36.0-47.0); HEMOGLOBIN 9.1 g/dl (12.0-15.5); MEAN CORPUSCULAR HEMOGLOBIN 27.8 pg (27.0-33.0); MEAN CORPUSCULAR HGB CONC 31.3 g/dl (32.0-36.5); PLATELET COUNT, AUTOMATED 381 10^3/uL (150-450); RED BLOOD COUNT 3.27 10^6/uL (4.00-5.40)
[2021-07-01 06:05] LABS: ALBUMIN 1.3 GM/DL (3.2-5.2); BILIRUBIN,TOTAL 0.2 MG/DL (0.2-1.0); CALCIUM LEVEL 8.4 MG/DL (8.8-10.2); CREATININE FOR GFR 1.06 MG/DL (0.55-1.30); GLOMERULAR FILTRATION RATE 55.2 (>45); POTASSIUM SERUM 5.6 MEQ/L (3.5-5.1)
[2021-07-01] MEDS: LACTOBACILLUS ACIDOPHILUS CAP (BACID) PO SCH ×2 (07:53→18:15)
[2021-07-01] MEDS: HumaLOG INSULIN (NovoLOG) PER UNIT SC SCH ×4 (07:54→20:19)
[2021-07-01] MEDS: CLOPIDOGREL 75 MG TAB PO SCH (08:13)
[2021-07-01] MEDS: ASPIRIN 81MG ENTERIC TABLET PO SCH (08:13)
[2021-07-01] MEDS: HEPARIN SOD (PORCINE) 5000UNITS/ML 1ML VIAL/SYRINGE SQ SCH ×2 (08:13→20:18)
[2021-07-01] MEDS: LEVEMIR (INSULIN DETEMIR) 1 UNITS/0.01ML SC SCH ×2 (08:14→20:17)
[2021-07-01] MEDS ORDERED: LEVEMIR (INSULIN DETEMIR) 1 UNITS/0.01ML SC SCH (09:00)
[2021-07-01] MEDS: PREGABALIN 75 MG CAP(LYRICA) PO SCH ×3 (10:27→22:28)
[2021-07-01] MEDS: METOPROLOL TART 25 MG TABLET PO SCH ×2 (10:28→18:15)
[2021-07-01 10:31] LABS: VANCOMYCIN RANDOM 13.9 UG/ML
[2021-07-01] MEDS: VANCOMYCIN HCL 750 MG, VIAL MATE ADAPTER 1 EACH in NS 250 ML IV SCH (12:56)
[2021-07-01] MEDS: VANCOMYCIN HCL 500 MG in D5W MINI-BAG PLUS 100 ML IV SCH (14:04)
[2021-07-01] MEDS ORDERED: LIDOCAINE 1% MDV 20ML VIAL As Ordered ONE (15:24)
[2021-07-01] MEDS ORDERED: BUPIVACAINE HCL 0.5% 30 ML VIAL As Ordered ONE (15:24)
[2021-07-01] MEDS ORDERED: fentaNYL 100 MCG/2 ML INJECTION As Ordered ONE (16:30)
[2021-07-01] MEDS ORDERED: propofoL 200 MG/20 ML VIAL As Ordered ONE (16:30)
[2021-07-01] MEDS ORDERED: LIDOCAINE 2% 100MG/5ML SDV (FOR ANES.) As Ordered ONE (16:30)
[2021-07-01] MEDS ORDERED: MIDAZOLAM INJ 2MG/2ML VIAL (J2250 PER 1MG) As Ordered ONE (16:30)
[2021-07-01] MEDS ORDERED: ONDANSETRON 4MG/2ML VIAL IV PRN (17:10)
[2021-07-01] MEDS ORDERED: LR 1,000 ML IV SCH (17:10)
[2021-07-01] MEDS: ATORVASTATIN 20 MG TAB PO SCH (20:18)
[2021-07-02 02:00] VITALS: BP 125/59
[2021-07-02] MEDS: ACETAMINOPHEN TAB 650MG DOSE (2X325MG) PO PRN (05:02)
[2021-07-02 05:03] LABS: HEMATOCRIT 29.1 % (36.0-47.0); HEMOGLOBIN 9.4 g/dl (12.0-15.5); MEAN CORPUSCULAR HEMOGLOBIN 28.3 pg (27.0-33.0); MEAN CORPUSCULAR HGB CONC 32.3 g/dl (32.0-36.5); MEAN CORPUSCULAR VOLUME 87.7 fl (80.0-96.0); PLATELET COUNT, AUTOMATED 383 10^3/uL (150-450); RED BLOOD COUNT 3.32 10^6/uL (4.00-5.40); WHITE BLOOD COUNT 17.3 10^3/uL (4.0-10.0)
[2021-07-02 05:32] LABS: ALBUMIN 1.5 GM/DL (3.2-5.2); BILIRUBIN,TOTAL 0.2 MG/DL (0.2-1.0); CREATININE FOR GFR 1.05 MG/DL (0.55-1.30); GLOMERULAR FILTRATION RATE 55.8 (>45); POTASSIUM SERUM 5.3 MEQ/L (3.5-5.1); TOTAL PROTEIN 5.1 GM/DL (6.4-8.2)
[2021-07-02] MEDS: SODIUM CHLORIDE 0.9% INJ 10 ML SYR IV SCH ×2 (05:34→18:40)
[2021-07-02 06:00] VITALS: BP 137/64
[2021-07-02] MEDS: CLOPIDOGREL 75 MG TAB PO SCH (08:35)
[2021-07-02] MEDS: LEVEMIR (INSULIN DETEMIR) 1 UNITS/0.01ML SC SCH ×2 (08:35→20:46)
[2021-07-02] MEDS: ASPIRIN 81MG ENTERIC TABLET PO SCH (08:35)
[2021-07-02] MEDS: LACTOBACILLUS ACIDOPHILUS CAP (BACID) PO SCH ×2 (08:35→18:38)
[2021-07-02] MEDS: HumaLOG INSULIN (NovoLOG) PER UNIT SC SCH ×6 (08:36→20:53)
[2021-07-02] MEDS: HEPARIN SOD (PORCINE) 5000UNITS/ML 1ML VIAL/SYRINGE SQ SCH ×2 (08:36→20:47)
[2021-07-02 10:00] VITALS: BP 138/67
[2021-07-02] MEDS: PREGABALIN 75 MG CAP(LYRICA) PO SCH ×3 (11:22→20:47)
[2021-07-02] MEDS: METOPROLOL TART 25 MG TABLET PO SCH ×2 (11:22→18:39)
[2021-07-02] MEDS: VANCOMYCIN HCL 750 MG, VIAL MATE ADAPTER 1 EACH in NS 250 ML IV SCH (12:27)
[2021-07-02 14:00] VITALS: BP 145/72
[2021-07-02] MEDS: VANCOMYCIN HCL 500 MG in D5W MINI-BAG PLUS 100 ML IV SCH (14:23)
[2021-07-02 18:00] VITALS: BP 146/74
[2021-07-02] MEDS: PIPERACILLIN/TAZOBACTAM SOD 3.375 GM in D5W MINI-BAG PLUS 50 ML IV SCH (18:42)
[2021-07-02] MEDS: ATORVASTATIN 20 MG TAB PO SCH (20:47)
[2021-07-02 22:00] VITALS: BP 142/69
[2021-07-03] MEDS: PIPERACILLIN/TAZOBACTAM SOD 3.375 GM in D5W MINI-BAG PLUS 50 ML IV SCH ×4 (00:32→17:26)
[2021-07-03 06:00] VITALS: BP 115/64
[2021-07-03] MEDS: SODIUM CHLORIDE 0.9% INJ 10 ML SYR IV SCH ×2 (06:04→18:40)
[2021-07-03] MEDS: CLOPIDOGREL 75 MG TAB PO SCH (07:55)
[2021-07-03] MEDS: ASPIRIN 81MG ENTERIC TABLET PO SCH (07:56)
[2021-07-03] MEDS: LEVEMIR (INSULIN DETEMIR) 1 UNITS/0.01ML SC SCH ×2 (07:57→21:06)
[2021-07-03] MEDS: HEPARIN SOD (PORCINE) 5000UNITS/ML 1ML VIAL/SYRINGE SQ SCH ×2 (07:57→21:06)
[2021-07-03] MEDS: HumaLOG INSULIN (NovoLOG) PER UNIT SC SCH ×4 (08:01→21:00)
[2021-07-03] MEDS: LACTOBACILLUS ACIDOPHILUS CAP (BACID) PO SCH ×2 (08:01→17:25)
[2021-07-03 08:33] LABS: BASO # 0.1 10^3/uL (0.0-0.2); BASO % 0.4 % (0.0-1.0); EOS # 0.2 10^3/uL (0.0-0.5); EOS % 1.4 % (0.0-3.0); HEMATOCRIT 29.9 % (36.0-47.0); HEMOGLOBIN 9.3 g/dl (12.0-15.5); LYMPH # 2.5 10^3/uL (1.5-5.0); LYMPH % 15.1 % (24.0-44.0); MEAN CORPUSCULAR HEMOGLOBIN 27.8 pg (27.0-33.0); MEAN CORPUSCULAR HGB CONC 31.1 g/dl (32.0-36.5); MEAN CORPUSCULAR VOLUME 89.3 fl (80.0-96.0); MONO # 1.3 10^3/uL (0.0-0.8); MONO % 7.8 % (2.0-8.0); NEUTROPHILS # 11.7 10^3/uL (1.5-8.5); NEUTROPHILS % 71.7 % (36.0-66.0); PLATELET COUNT, AUTOMATED 434 10^3/uL (150-450); RED BLOOD COUNT 3.35 10^6/uL (4.00-5.40); WHITE BLOOD COUNT 16.4 10^3/uL (4.0-10.0)
[2021-07-03 08:56] LABS: ALBUMIN 1.5 GM/DL (3.2-5.2); BILIRUBIN,TOTAL 0.2 MG/DL (0.2-1.0); CALCIUM LEVEL 8.7 MG/DL (8.8-10.2); CREATININE FOR GFR 1.19 MG/DL (0.55-1.30); GLOMERULAR FILTRATION RATE 48.3 (>45); POTASSIUM SERUM 4.8 MEQ/L (3.5-5.1); TOTAL PROTEIN 6.1 GM/DL (6.4-8.2)
[2021-07-03] MEDS: PREGABALIN 75 MG CAP(LYRICA) PO SCH ×3 (10:21→21:06)
[2021-07-03] MEDS: METOPROLOL TART 25 MG TABLET PO SCH ×2 (10:23→17:25)
[2021-07-03] MEDS ORDERED: ACET1TAB55 PO (11:02)
[2021-07-03] MEDS ORDERED: LANTINJ4 SC (11:02)
[2021-07-03 14:00] VITALS: BP 144/85
[2021-07-03] MEDS: ATORVASTATIN 20 MG TAB PO SCH (21:06)
[2021-07-03 22:00] VITALS: BP 142/83
[2021-07-04] MEDS: PIPERACILLIN/TAZOBACTAM SOD 3.375 GM in D5W MINI-BAG PLUS 50 ML IV SCH ×2 (00:57→06:31)
[2021-07-04 04:32] LABS: BASO # 0.1 10^3/uL (0.0-0.2); BASO % 0.5 % (0.0-1.0); EOS # 0.2 10^3/uL (0.0-0.5); EOS % 1.2 % (0.0-3.0); HEMATOCRIT 28.6 % (36.0-47.0); HEMOGLOBIN 9.2 g/dl (12.0-15.5); LYMPH # 3.3 10^3/uL (1.5-5.0); LYMPH % 18.8 % (24.0-44.0); MEAN CORPUSCULAR HEMOGLOBIN 28.5 pg (27.0-33.0); MEAN CORPUSCULAR HGB CONC 32.2 g/dl (32.0-36.5); MEAN CORPUSCULAR VOLUME 88.5 fl (80.0-96.0); MONO # 1.4 10^3/uL (0.0-0.8); MONO % 7.9 % (2.0-8.0); NEUTROPHILS # 12.1 10^3/uL (1.5-8.5); NEUTROPHILS % 68.4 % (36.0-66.0); PLATELET COUNT, AUTOMATED 434 10^3/uL (150-450); RED BLOOD COUNT 3.23 10^6/uL (4.00-5.40); WHITE BLOOD COUNT 17.7 10^3/uL (4.0-10.0)
[2021-07-04 05:01] LABS: ALBUMIN 1.5 GM/DL (3.2-5.2); BILIRUBIN,TOTAL 0.2 MG/DL (0.2-1.0); CALCIUM LEVEL 8.3 MG/DL (8.8-10.2); CREATININE FOR GFR 1.2 MG/DL (0.55-1.30); GLOMERULAR FILTRATION RATE 47.8 (>45); MAGNESIUM LEVEL 1.8 MG/DL (1.8-2.4); POTASSIUM SERUM 5.1 MEQ/L (3.5-5.1); TOTAL PROTEIN 5.3 GM/DL (6.4-8.2)
[2021-07-04 06:00] VITALS: BP 130/60
[2021-07-04] MEDS: SODIUM CHLORIDE 0.9% INJ 10 ML SYR IV SCH (06:34)
[2021-07-04 08:41] LABS: C REACTIVE PROTEIN QUANTITATIV 7.73 MG/DL (0.00-0.30)
[2021-07-04 09:16] LABS: ERYTHROCYTE SEDIMENTATION RATE 126 mm/hr (0-30)
[2021-07-04] MEDS: LACTOBACILLUS ACIDOPHILUS CAP (BACID) PO SCH (09:41)
[2021-07-04] MEDS: CLOPIDOGREL 75 MG TAB PO SCH (09:41)
[2021-07-04] MEDS: ASPIRIN 81MG ENTERIC TABLET PO SCH (09:41)
[2021-07-04 09:42] VITALS: BP 142/71
[2021-07-04] MEDS: METOPROLOL TART 25 MG TABLET PO SCH (09:42)
[2021-07-04] MEDS: PREGABALIN 75 MG CAP(LYRICA) PO SCH (09:42)
[2021-07-04] MEDS: LEVEMIR (INSULIN DETEMIR) 1 UNITS/0.01ML SC SCH (09:43)
[2021-07-04] MEDS: HumaLOG INSULIN (NovoLOG) PER UNIT SC SCH (09:43)
[2021-07-04] MEDS: HEPARIN SOD (PORCINE) 5000UNITS/ML 1ML VIAL/SYRINGE SQ SCH (09:44)
[2021-07-04] MEDS: SODIUM CHLORIDE 0.9% INJ 10 ML SYR IV PRN (10:30)
== END 2021-07-04 11:55 | disposition home health service (06) | DRG 854 ==
LOC: M ED 11:44 → M ED INP 17:49 → M MSPAV 20:18
PROVIDERS: ADMIT Internal Medicine; ATTEND Family Medicine
PROC: 0Y6Q0Z1 Detachment at Left 1st Toe, High, Open Approach (ICD-10-PCS; principal; 2021-06-27 17:00)
PROC: 02HV33Z Insertion of Infusion Device into Superior Vena Cava, Percutaneous Approach (ICD-10-PCS; 2021-06-28)
PROC: 0Y6S0Z1 Detachment at Left 2nd Toe, High, Open Approach (ICD-10-PCS; 2021-07-01)
DX: A41.9 Sepsis, unspecified organism (principal); L03.116 Cellulitis of left lower limb; M86.172 Other acute osteomyelitis, left ankle and foot; N17.9 Acute kidney failure, unspecified; E11.65 Type 2 diabetes mellitus with hyperglycemia; I10 Essential (primary) hypertension; E11.621 Type 2 diabetes mellitus with foot ulcer; E11.42 Type 2 diabetes mellitus with diabetic polyneuropathy; I25.10 Atherosclerotic heart disease of native coronary artery without angina pectoris; Z95.5 Presence of coronary angioplasty implant and graft; I25.2 Old myocardial infarction; Z90.49 Acquired absence of other specified parts of digestive tract; F17.210 Nicotine dependence, cigarettes, uncomplicated; Z20.822 Contact with and (suspected) exposure to COVID-19; Z79.82 Long term (current) use of aspirin; Z79.4 Long term (current) use of insulin; Z79.899 Other long term (current) drug therapy; Z91.040 Latex allergy status; E11.69 Type 2 diabetes mellitus with other specified complication; R65.20 Severe sepsis without septic shock

== ENCOUNTER → 2021-07-08 | Outpatient (REF) | payer MEDICARE, MEDICAID ==
[~2021-07-08] MED LIST changes: +ACET1TAB55 PO; +HUMA100I5 SC
[2021-07-08 17:08] LABS: HEMOGLOBIN 9.7 g/dl (12.0-15.5); MEAN CORPUSCULAR HEMOGLOBIN 27.7 pg (27.0-33.0); MEAN CORPUSCULAR HGB CONC 32.3 g/dl (32.0-36.5); MEAN CORPUSCULAR VOLUME 85.7 fl (80.0-96.0); PLATELET COUNT, AUTOMATED 531 10^3/uL (150-450); WHITE BLOOD COUNT 15.7 10^3/uL (4.0-10.0)
[2021-07-08 17:20] LABS: BILIRUBIN,TOTAL 0.2 MG/DL (0.2-1.0); C REACTIVE PROTEIN QUANTITATIV 2.47 MG/DL (0.00-0.30); CALCIUM LEVEL 8.7 MG/DL (8.8-10.2); CREATININE FOR GFR 1.47 MG/DL (0.55-1.30); GLOMERULAR FILTRATION RATE 37.9 (>45); POTASSIUM SERUM 5.6 MEQ/L (3.5-5.1); TOTAL PROTEIN 6.3 GM/DL (6.4-8.2)
[2021-07-08 17:37] LABS: ERYTHROCYTE SEDIMENTATION RATE 126 mm/hr (0-30)
== END ==
LOC: M LAB REF 16:31
PROVIDERS: ATTEND Internal Medicine Infectious Disease
DX: M86.9 Osteomyelitis, unspecified (principal)

== ENCOUNTER → 2021-07-17 | Outpatient (REF) | payer MEDICARE, MEDICAID ==
[~2021-07-17] MED LIST changes: +LISI-898 PO; -LISI5TAB11 PO; -TIZA10TA PO; +TIZA4TAB4 PO
[2021-07-17 12:02] LABS: HEMATOCRIT 30.4 % (36.0-47.0); HEMOGLOBIN 9.7 g/dl (12.0-15.5); MEAN CORPUSCULAR HEMOGLOBIN 28.1 pg (27.0-33.0); MEAN CORPUSCULAR HGB CONC 31.9 g/dl (32.0-36.5); MEAN CORPUSCULAR VOLUME 88.1 fl (80.0-96.0); PLATELET COUNT, AUTOMATED 262 10^3/uL (150-450); RED BLOOD COUNT 3.45 10^6/uL (4.00-5.40); WHITE BLOOD COUNT 11.1 10^3/uL (4.0-10.0)
[2021-07-17 12:51] LABS: CREATININE FOR GFR 1.84 MG/DL (0.55-1.30); GLOMERULAR FILTRATION RATE 29.2 (>45)
[2021-07-17 12:52] LABS: ALBUMIN 2.5 GM/DL (3.2-5.2); BILIRUBIN,TOTAL 0.4 MG/DL (0.2-1.0); C REACTIVE PROTEIN QUANTITATIV 0.61 MG/DL (0.00-0.30); CALCIUM LEVEL 9.9 MG/DL (8.8-10.2); POTASSIUM SERUM 4.2 MEQ/L (3.5-5.1); TOTAL PROTEIN 6.2 GM/DL (6.4-8.2)
[2021-07-17 12:54] LABS: ERYTHROCYTE SEDIMENTATION RATE 66 mm/hr (0-30)
== END ==
LOC: M LAB REF 11:13
PROVIDERS: ATTEND Internal Medicine Infectious Disease
DX: M86.9 Osteomyelitis, unspecified (principal); E11.621 Type 2 diabetes mellitus with foot ulcer; L03.116 Cellulitis of left lower limb; I10 Essential (primary) hypertension

== ENCOUNTER → 2021-07-24 | Outpatient (REF) | payer MEDICARE, MEDICAID ==
[~2021-07-24] MED LIST changes: -LISI-898 PO; +LISI5TAB11 PO; +TIZA10TA PO; -TIZA4TAB4 PO
[2021-07-24 12:09] LABS: HEMATOCRIT 30.8 % (36.0-47.0); HEMOGLOBIN 9.7 g/dl (12.0-15.5); MEAN CORPUSCULAR HEMOGLOBIN 27.8 pg (27.0-33.0); MEAN CORPUSCULAR HGB CONC 31.5 g/dl (32.0-36.5); MEAN CORPUSCULAR VOLUME 88.3 fl (80.0-96.0); PLATELET COUNT, AUTOMATED 205 10^3/uL (150-450); RED BLOOD COUNT 3.49 10^6/uL (4.00-5.40); WHITE BLOOD COUNT 10.2 10^3/uL (4.0-10.0)
[2021-07-24 12:47] LABS: ERYTHROCYTE SEDIMENTATION RATE 67 mm/hr (0-30)
[2021-07-24 16:14] LABS: ALBUMIN 2.4 GM/DL (3.2-5.2); BILIRUBIN,TOTAL 0.3 MG/DL (0.2-1.0); C REACTIVE PROTEIN QUANTITATIV 0.6 MG/DL (0.00-0.30); CALCIUM LEVEL 8.7 MG/DL (8.8-10.2); CREATININE FOR GFR 1.8 MG/DL (0.55-1.30); POTASSIUM SERUM 4.2 MEQ/L (3.5-5.1); TOTAL PROTEIN 5.8 GM/DL (6.4-8.2)
== END ==
LOC: M LAB REF 11:08
PROVIDERS: ATTEND Internal Medicine Infectious Disease
DX: M86.9 Osteomyelitis, unspecified (principal); E11.621 Type 2 diabetes mellitus with foot ulcer; L03.116 Cellulitis of left lower limb; I10 Essential (primary) hypertension

== ENCOUNTER → 2021-10-07 | Outpatient (REF) | payer MEDICARE, MEDICAID ==
[2021-10-07 19:42] LABS: BASO % 0.4 % (0.0-1.0); EOS # 0.2 10^3/uL (0.0-0.5); HEMATOCRIT 32.2 % (36.0-47.0); HEMOGLOBIN 10.1 g/dl (12.0-15.5); LYMPH # 2.5 10^3/uL (1.5-5.0); LYMPH % 23.7 % (24.0-44.0); MEAN CORPUSCULAR HEMOGLOBIN 27.1 pg (27.0-33.0); MEAN CORPUSCULAR HGB CONC 31.4 g/dl (32.0-36.5); MEAN CORPUSCULAR VOLUME 86.3 fl (80.0-96.0); MONO # 0.8 10^3/uL (0.0-0.8); MONO % 7.6 % (2.0-8.0); NEUTROPHILS # 6.8 10^3/uL (1.5-8.5); NEUTROPHILS % 65.8 % (36.0-66.0); PLATELET COUNT, AUTOMATED 293 10^3/uL (150-450); RED BLOOD COUNT 3.73 10^6/uL (4.00-5.40); WHITE BLOOD COUNT 10.3 10^3/uL (4.0-10.0)
[2021-10-07 20:03] LABS: C REACTIVE PROTEIN QUANTITATIV 0.3 MG/DL (0.00-0.30); CALCIUM LEVEL 8.9 MG/DL (8.8-10.2); CREATININE FOR GFR 1.63 MG/DL (0.55-1.30); GLOMERULAR FILTRATION RATE 33.6 (>45); POTASSIUM SERUM 5.3 MEQ/L (3.5-5.1); VANCOMYCIN LEVEL TROUGH 16.9 UG/ML (10.0-20.0)
[2021-10-07 20:04] LABS: ERYTHROCYTE SEDIMENTATION RATE 60 mm/hr (0-30)
== END ==
LOC: M LAB REF 18:53
PROVIDERS: ATTEND Urology
DX: M86.9 Osteomyelitis, unspecified (principal); E11.621 Type 2 diabetes mellitus with foot ulcer; L03.116 Cellulitis of left lower limb; I10 Essential (primary) hypertension

== ENCOUNTER → 2021-10-14 | Outpatient (REF) | payer MEDICARE, MEDICAID ==
[~2021-10-14] MED LIST changes: +CEFE2INJ5 IM; +HYDR-3713 PO; +LEVO500T4 PO; +VANC-7 IM; +VITMTA PO
[2021-10-14 19:40] LABS: BASO % 0.3 % (0.0-1.0); EOS # 0.2 10^3/uL (0.0-0.5); EOS % 1.6 % (0.0-3.0); HEMATOCRIT 29.8 % (36.0-47.0); HEMOGLOBIN 9.4 g/dl (12.0-15.5); LYMPH # 2.6 10^3/uL (1.5-5.0); LYMPH % 23.5 % (24.0-44.0); MEAN CORPUSCULAR HEMOGLOBIN 27.9 pg (27.0-33.0); MEAN CORPUSCULAR HGB CONC 31.5 g/dl (32.0-36.5); MEAN CORPUSCULAR VOLUME 88.4 fl (80.0-96.0); MONO # 0.9 10^3/uL (0.0-0.8); MONO % 8.4 % (2.0-8.0); NEUTROPHILS # 7.3 10^3/uL (1.5-8.5); NEUTROPHILS % 65.9 % (36.0-66.0); PLATELET COUNT, AUTOMATED 206 10^3/uL (150-450); RED BLOOD COUNT 3.37 10^6/uL (4.00-5.40)
[2021-10-14 20:11] LABS: C REACTIVE PROTEIN QUANTITATIV 0.3 MG/DL (0.00-0.30); CALCIUM LEVEL 8.9 MG/DL (8.8-10.2); CREATININE FOR GFR 2.23 MG/DL (0.55-1.30); GLOMERULAR FILTRATION RATE 23.4 (>45); POTASSIUM SERUM 5.1 MEQ/L (3.5-5.1)
[2021-10-14 20:29] LABS: ERYTHROCYTE SEDIMENTATION RATE 66 mm/hr (0-30)
[2021-10-14 21:45] LABS: VANCOMYCIN LEVEL TROUGH 27.8 UG/ML (10.0-20.0)
== END ==
LOC: M LAB REF 19:07
PROVIDERS: ATTEND Internal Medicine Infectious Disease
DX: M86.9 Osteomyelitis, unspecified (principal); E11.621 Type 2 diabetes mellitus with foot ulcer; L03.116 Cellulitis of left lower limb; I10 Essential (primary) hypertension

== ENCOUNTER 2021-10-15 09:48 | Inpatient (IN) | payer MEDICARE, MEDICAID ==
[~2021-10-15] VITALS: Ht 162.6 cm; Wt 97.5 kg
[2021-10-15] MEDS: SODIUM CHLORIDE 0.9% INJ 10 ML SYR IV SCH (09:00)
[~2021-10-15 09:48] MED LIST changes: -CEFE2INJ5 IM; -HYDR-3713 PO; -LEVO500T4 PO; +LevoFLOXacin 250 MG TABLET PO SCH; -VANC-7 IM; -VITMTA PO
[2021-10-15 10:16] LABS: ABG BASE EXCESS -9.6 (-2.0-2.0); ABG HCO3 16.4 MEQ/L (22.0-26.0); ABG O2 SATURATION 96.3 % (95.0-99.0); ABG PARTIAL PRESSURE CO2 36.3 mmHg (35.0-45.0); ABG PARTIAL PRESSURE O2 90.6 mmHg (75.0-100.0); ABG STANDARD HCO3 16.8 MEQ/L (22.0-26.0); ABG TOTAL CO2 17.6 MEQ/L (23.0-31.0); ABG pH (ARTERIAL) 7.274 UNITS (7.350-7.450)
[2021-10-15 10:56] LABS: BASO % 0.3 % (0.0-1.0); EOS # 0.1 10^3/uL (0.0-0.5); EOS % 1.2 % (0.0-3.0); HEMATOCRIT 28.5 % (36.0-47.0); LYMPH # 1.7 10^3/uL (1.5-5.0); LYMPH % 17.3 % (24.0-44.0); MEAN CORPUSCULAR HGB CONC 31.6 g/dl (32.0-36.5); MEAN CORPUSCULAR VOLUME 88.5 fl (80.0-96.0); MONO # 0.9 10^3/uL (0.0-0.8); MONO % 9.6 % (2.0-8.0); NEUTROPHILS % 71.2 % (36.0-66.0); PLATELET COUNT, AUTOMATED 183 10^3/uL (150-450); RED BLOOD COUNT 3.22 10^6/uL (4.00-5.40); WHITE BLOOD COUNT 9.8 10^3/uL (4.0-10.0)
[2021-10-15 11:35] LABS: ACETAMINOPHEN LEVEL 2.5 UG/ML (10.0-30.0); ALBUMIN 2.1 GM/DL (3.2-5.2); ALT/SGPT 19 U/L (12-78); BILIRUBIN,DIRECT < 0.1 MG/DL (0.0-0.2); BILIRUBIN,TOTAL 0.3 MG/DL (0.2-1.0); BLOOD UREA NITROGEN 43 MG/DL (7-18); CALCIUM LEVEL 9.2 MG/DL (8.8-10.2); CARBON DIOXIDE LEVEL 19 MEQ/L (21-32); CHLORIDE LEVEL 124 MEQ/L (98-107); CREATININE FOR GFR 2.33 MG/DL (0.55-1.30); ETHYL ALCOHOL (ETHANOL) < 0.003 % (0.000-0.010); GLOMERULAR FILTRATION RATE 22.2 (>45); GLUCOSE, FASTING 119 MG/DL (70-100); POTASSIUM SERUM 5.2 MEQ/L (3.5-5.1); SALICYLATE LEVEL 4.3 MG/DL (5.0-30.0); SODIUM LEVEL 146 MEQ/L (136-145); TOTAL PROTEIN 5.9 GM/DL (6.4-8.2)
[2021-10-15] MEDS ORDERED: NS 1,000 ML IV ONE (11:50)
[2021-10-15] MEDS ORDERED: HYDR-3713 PO (12:03)
[2021-10-15] MEDS ORDERED: VITMTA PO (12:03)
[2021-10-15] MEDS ORDERED: VANC-7 IM (12:07)
[2021-10-15] MEDS ORDERED: LANTINJ4 SC (12:07)
[2021-10-15] MEDS ORDERED: LEVO500T4 PO (12:07)
[2021-10-15] MEDS ORDERED: CEFE2INJ5 IM (12:07)
[2021-10-15] MEDS ORDERED: HOME MED LIST COMPLETE! XX SCH (12:10)
[2021-10-15 12:34] LABS: RSV AMPLIFICATION NEGATIVE (NEGATIVE)
[2021-10-15] MEDS ORDERED: SODIUM CHLORIDE 0.9% INJ 10 ML SYR IV PRN (13:05)
[2021-10-15] MEDS ORDERED: NITROGLYCERIN 0.4 MG SUBL TABLET SL PRN (13:35)
[2021-10-15] MEDS ORDERED: DEXTROSE 50% 50 ML SYRINGE IV PRN (15:05)
[2021-10-15] MEDS ORDERED: GLUCAGON INJ 1MG VIAL SC PRN (15:05)
[2021-10-15] MEDS ORDERED: GLUCOSE 4GM CHEW TABLET PO PRN (15:05)
[2021-10-15 15:09] VITALS: BP 176/82
[2021-10-15] MEDS ORDERED: PREGABALIN 75 MG CAP(LYRICA) PO SCH (16:00)
[2021-10-15 16:40] VITALS: BP 180/80
[2021-10-15] MEDS: LevoFLOXacin 250 MG TABLET PO SCH (16:52)
[2021-10-15 17:32] LABS: CALCIUM LEVEL 8.8 MG/DL (8.8-10.2); CREATININE FOR GFR 2.35 MG/DL (0.55-1.30)
[2021-10-15] MEDS: amLODIPine 5 MG TAB PO SCH (17:50)
[2021-10-15] MEDS: HumaLOG INSULIN (NovoLOG) PER UNIT SC SCH ×2 (17:50→20:33)
[2021-10-15] MEDS ORDERED: HumaLOG INSULIN (NovoLOG) PER UNIT SC SCH (18:00)
[2021-10-15 20:00] VITALS: BP 162/78
[2021-10-15] MEDS: PREGABALIN 25 MG CAP (LYRICA) PO SCH (21:21)
[2021-10-15] MEDS: METOPROLOL TART 25 MG TABLET PO SCH (21:21)
[2021-10-16] VITALS: BP 172/76
[2021-10-16 04:00] VITALS: BP 128/59
[2021-10-16 05:03] LABS: HEMATOCRIT 25.8 % (36.0-47.0); HEMOGLOBIN 8.3 g/dl (12.0-15.5); MEAN CORPUSCULAR HGB CONC 32.2 g/dl (32.0-36.5); MEAN CORPUSCULAR VOLUME 87.2 fl (80.0-96.0); PLATELET COUNT, AUTOMATED 164 10^3/uL (150-450); RED BLOOD COUNT 2.96 10^6/uL (4.00-5.40); WHITE BLOOD COUNT 8.8 10^3/uL (4.0-10.0)
[2021-10-16 05:29] LABS: ALBUMIN 1.8 GM/DL (3.2-5.2); C REACTIVE PROTEIN QUANTITATIV 0.32 MG/DL (0.00-0.30); CALCIUM LEVEL 8.7 MG/DL (8.8-10.2); CREATININE FOR GFR 2.37 MG/DL (0.55-1.30); GLOMERULAR FILTRATION RATE 21.8 (>45); POTASSIUM SERUM 4.9 MEQ/L (3.5-5.1)
[2021-10-16 05:44] LABS: ERYTHROCYTE SEDIMENTATION RATE 67 mm/hr (0-30)
[2021-10-16] MEDS: LevoFLOXacin 250 MG TABLET PO SCH (05:53)
[2021-10-16] MEDS: HumaLOG INSULIN (NovoLOG) PER UNIT SC SCH ×4 (07:30→20:44)
[2021-10-16 07:44] VITALS: BP 158/78
[2021-10-16] MEDS: SODIUM CHLORIDE 0.9% INJ 10 ML SYR IV SCH (08:50)
[2021-10-16] MEDS: PREGABALIN 25 MG CAP (LYRICA) PO SCH ×3 (09:01→20:44)
[2021-10-16] MEDS: amLODIPine 5 MG TAB PO SCH (09:02)
[2021-10-16] MEDS: METOPROLOL TART 25 MG TABLET PO SCH ×2 (09:02→20:44)
[2021-10-16] MEDS: D5W/0.45% SODIUM CHLORIDE 1,000 ML IV SCH ×2 (09:03→19:55)
[2021-10-16 12:19] VITALS: BP 162/80
[2021-10-16 16:00] VITALS: BP 170/84
[2021-10-16 20:13] VITALS: BP 160/80
[2021-10-17 00:13] VITALS: BP 126/66
[2021-10-17 04:04] VITALS: BP 135/63
[2021-10-17] MEDS: LevoFLOXacin 250 MG TABLET PO SCH (06:15)
[2021-10-17 07:56] LABS: HEMATOCRIT 26.1 % (36.0-47.0); MEAN CORPUSCULAR HEMOGLOBIN 26.9 pg (27.0-33.0); MEAN CORPUSCULAR HGB CONC 30.7 g/dl (32.0-36.5); MEAN CORPUSCULAR VOLUME 87.9 fl (80.0-96.0); PLATELET COUNT, AUTOMATED 156 10^3/uL (150-450); RED BLOOD COUNT 2.97 10^6/uL (4.00-5.40)
[2021-10-17] MEDS: HumaLOG INSULIN (NovoLOG) PER UNIT SC SCH ×4 (08:08→22:15)
[2021-10-17] MEDS: amLODIPine 5 MG TAB PO SCH (08:09)
[2021-10-17] MEDS: METOPROLOL TART 25 MG TABLET PO SCH ×2 (08:09→22:03)
[2021-10-17 08:24] LABS: ALBUMIN 1.8 GM/DL (3.2-5.2); CALCIUM LEVEL 8.6 MG/DL (8.8-10.2); CREATININE FOR GFR 2.57 MG/DL (0.55-1.30); GLOMERULAR FILTRATION RATE 19.9 (>45); PHOSPHORUS LEVEL 3.9 MG/DL (2.5-4.9); POTASSIUM SERUM 4.9 MEQ/L (3.5-5.1)
[2021-10-17 08:35] VITALS: BP 156/66
[2021-10-17] MEDS: D5W/0.45% SODIUM CHLORIDE 1,000 ML IV SCH ×2 (09:51→22:04)
[2021-10-17] MEDS: PREGABALIN 25 MG CAP (LYRICA) PO SCH ×3 (09:51→22:03)
[2021-10-17] MEDS: SODIUM CHLORIDE 0.9% INJ 10 ML SYR IV SCH (09:52)
[2021-10-17 12:00] VITALS: BP 163/74
[2021-10-17 15:20] VITALS: BP 145/77
[2021-10-17 18:00] VITALS: BP 143/73
[2021-10-18 05:40] VITALS: BP 140/72
[2021-10-18 06:01] LABS: HEMOGLOBIN 8.7 g/dl (12.0-15.5); MEAN CORPUSCULAR HEMOGLOBIN 28.3 pg (27.0-33.0); MEAN CORPUSCULAR HGB CONC 32.2 g/dl (32.0-36.5); MEAN CORPUSCULAR VOLUME 87.9 fl (80.0-96.0); PLATELET COUNT, AUTOMATED 158 10^3/uL (150-450); RED BLOOD COUNT 3.07 10^6/uL (4.00-5.40); WHITE BLOOD COUNT 8.4 10^3/uL (4.0-10.0)
[2021-10-18 06:28] LABS: ALBUMIN 1.8 GM/DL (3.2-5.2); CALCIUM LEVEL 8.1 MG/DL (8.8-10.2); CREATININE FOR GFR 2.42 MG/DL (0.55-1.30); GLOMERULAR FILTRATION RATE 21.3 (>45); PERCENT SATURATION 17.9 % (13.2-45.0)
[2021-10-18] MEDS: LevoFLOXacin 250 MG TABLET PO SCH (06:39)
[2021-10-18] MEDS: HumaLOG INSULIN (NovoLOG) PER UNIT SC SCH ×4 (08:02→20:59)
[2021-10-18] MEDS: METOPROLOL TART 25 MG TABLET PO SCH ×2 (08:03→21:07)
[2021-10-18] MEDS: amLODIPine 5 MG TAB PO SCH (08:03)
[2021-10-18] MEDS: PREGABALIN 25 MG CAP (LYRICA) PO SCH ×3 (08:10→21:06)
[2021-10-18] MEDS: SODIUM CHLORIDE 0.9% INJ 10 ML SYR IV SCH (08:21)
[2021-10-18] MEDS: D5W/0.45% SODIUM CHLORIDE 1,000 ML IV SCH ×2 (08:21→11:01)
[2021-10-18 08:27] LABS: TOTAL 25(OH) VITAMIN D 12.8 NG/ML (30.0-100.0)
[2021-10-18] MEDS: VITAMIN D 1,000 INTERNATIONAL UNITS TABLET PO SCH (11:53)
[2021-10-18 12:47] VITALS: BP 146/80
[2021-10-18] MEDS ORDERED: FERRIC CARBOXYMALTOSE INJ 750 MG, VIAL MATE ADAPTER 1 EACH in NS 250 ML IV ONE (13:00)
[2021-10-18 13:04] VITALS: BP 152/77
[2021-10-18 14:00] VITALS: BP 171/89
[2021-10-18 16:57] VITALS: BP 167/87
[2021-10-18 19:21] LABS: APPEARANCE, URINE CLOUDY (CLEAR); BACTERIA, URINE AUTO NEGATIVE (NEGATIVE); BILIRUBIN, URINE AUTO NEGATIVE (NEGATIVE); BLOOD, URINE BLOOD 1+ (NEGATIVE); COLOR, URINE YELLOW (YELLOW); GLUCOSE, URINE (UA) AUTO 3+ mg/dL (NEGATIVE); KETONE, URINE AUTO NEGATIVE (NEGATIVE); LEUKOCYTE ESTERASE, URINE AUTO 3+ (NEGATIVE); MUCUS, URINE SMALL (NEGATIVE); NITRITE, URINE AUTO NEGATIVE (NEGATIVE); PROTEIN, URINE AUTO 3+ mg/dL (NEGATIVE); RBC, URINE AUTO 15 /HPF (0-3); SPECIFIC GRAVITY URINE AUTO 1.008 (1.002-1.035); SQUAMOUS EPITHELIAL CELL UR AU 2 /HPF (0-6); UROBILINOGEN, URINE AUTO 0.2 mg/dL (0.0-2.0); WBC, URINE AUTO TNTC /HPF (0-3)
[2021-10-18 22:00] VITALS: BP 180/90
[2021-10-19] VITALS (7 sets, daily range): BP systolic 122–164; BP diastolic 68–80
[2021-10-19] MEDS: LevoFLOXacin 250 MG TABLET PO SCH (06:01)
[2021-10-19 07:39] LABS: HEMATOCRIT 29.1 % (36.0-47.0); HEMOGLOBIN 9.4 g/dl (12.0-15.5); MEAN CORPUSCULAR HGB CONC 32.3 g/dl (32.0-36.5); MEAN CORPUSCULAR VOLUME 86.6 fl (80.0-96.0); PLATELET COUNT, AUTOMATED 165 10^3/uL (150-450); RED BLOOD COUNT 3.36 10^6/uL (4.00-5.40); WHITE BLOOD COUNT 9.5 10^3/uL (4.0-10.0)
[2021-10-19 07:58] LABS: ALBUMIN 2.1 GM/DL (3.2-5.2); CALCIUM LEVEL 8.5 MG/DL (8.8-10.2); CREATININE FOR GFR 2.24 MG/DL (0.55-1.30); GLOMERULAR FILTRATION RATE 23.3 (>45); PHOSPHORUS LEVEL 3.9 MG/DL (2.5-4.9); POTASSIUM SERUM 5.3 MEQ/L (3.5-5.1)
[2021-10-19] MEDS: VITAMIN D 1,000 INTERNATIONAL UNITS TABLET PO SCH (08:39)
[2021-10-19] MEDS: amLODIPine 5 MG TAB PO SCH (08:42)
[2021-10-19] MEDS: SODIUM CHLORIDE 0.9% INJ 10 ML SYR IV SCH ×2 (09:00→10:05)
[2021-10-19] MEDS: HumaLOG INSULIN (NovoLOG) PER UNIT SC SCH ×4 (10:01→20:06)
[2021-10-19] MEDS: PREGABALIN 25 MG CAP (LYRICA) PO SCH ×3 (10:01→20:06)
[2021-10-19] MEDS: METOPROLOL TART 25 MG TABLET PO SCH ×2 (10:03→20:05)
[2021-10-19] MEDS: D5W/0.45% SODIUM CHLORIDE 1,000 ML IV SCH (14:12)
[2021-10-19 17:25] LABS: CALCIUM LEVEL 8.7 MG/DL (8.8-10.2); CREATININE FOR GFR 2.34 MG/DL (0.55-1.30); GLOMERULAR FILTRATION RATE 22.1 (>45); POTASSIUM SERUM 5.5 MEQ/L (3.5-5.1)
[2021-10-19] MEDS ORDERED: PATIROMER SORBITEX CALCIUM 8.4 GM POWDER PACKET (VELTASSA) PO ONE (19:00)
[2021-10-20] MEDS: D5W/0.45% SODIUM CHLORIDE 1,000 ML IV SCH (03:02)
[2021-10-20] MEDS: LevoFLOXacin 250 MG TABLET PO SCH (05:47)
[2021-10-20 05:53] VITALS: BP 140/72
[2021-10-20 06:43] LABS: HEMOGLOBIN 8.2 g/dl (12.0-15.5); MEAN CORPUSCULAR HEMOGLOBIN 27.3 pg (27.0-33.0); MEAN CORPUSCULAR HGB CONC 31.5 g/dl (32.0-36.5); MEAN CORPUSCULAR VOLUME 86.7 fl (80.0-96.0); PLATELET COUNT, AUTOMATED 165 10^3/uL (150-450); WHITE BLOOD COUNT 10.5 10^3/uL (4.0-10.0)
[2021-10-20 07:09] LABS: ALBUMIN 1.8 GM/DL (3.2-5.2); CALCIUM LEVEL 8.7 MG/DL (8.8-10.2); CREATININE FOR GFR 2.53 MG/DL (0.55-1.30); GLOMERULAR FILTRATION RATE 20.2 (>45); PHOSPHORUS LEVEL 3.6 MG/DL (2.5-4.9); POTASSIUM SERUM 5.5 MEQ/L (3.5-5.1)
[2021-10-20] MEDS: HumaLOG INSULIN (NovoLOG) PER UNIT SC SCH ×4 (08:59→21:00)
[2021-10-20] MEDS ORDERED: PATIROMER SORBITEX CALCIUM 8.4 GM POWDER PACKET (VELTASSA) PO ONE (09:00)
[2021-10-20] MEDS: PREGABALIN 25 MG CAP (LYRICA) PO SCH ×3 (09:00→20:20)
[2021-10-20] MEDS: SODIUM CHLORIDE 0.9% INJ 10 ML SYR IV SCH (09:05)
[2021-10-20] MEDS: VITAMIN D 1,000 INTERNATIONAL UNITS TABLET PO SCH (12:03)
[2021-10-20 12:05] VITALS: BP 157/74
[2021-10-20] MEDS: amLODIPine 5 MG TAB PO SCH (12:05)
[2021-10-20] MEDS: METOPROLOL TART 25 MG TABLET PO SCH ×2 (12:08→20:21)
[2021-10-20] MEDS ORDERED: FUROSEMIDE 40MG/4ML VIAL (J1940) IV ONE (12:25)
[2021-10-20 13:12] LABS: CALCIUM LEVEL 9.2 MG/DL (8.8-10.2); CREATININE FOR GFR 2.42 MG/DL (0.55-1.30); GLOMERULAR FILTRATION RATE 21.3 (>45); POTASSIUM SERUM 5.2 MEQ/L (3.5-5.1)
[2021-10-20 14:00] VITALS: BP 161/78
[2021-10-20] MEDS ORDERED: SOD POLYSTYRENE SULFONATE SUSP 15 GM/60 ML UD PO ONE (14:00)
[2021-10-20 19:11] VITALS: BP 180/90
[2021-10-21 05:59] LABS: HEMATOCRIT 26.6 % (36.0-47.0); HEMOGLOBIN 8.4 g/dl (12.0-15.5); MEAN CORPUSCULAR HEMOGLOBIN 27.6 pg (27.0-33.0); MEAN CORPUSCULAR HGB CONC 31.6 g/dl (32.0-36.5); MEAN CORPUSCULAR VOLUME 87.5 fl (80.0-96.0); PLATELET COUNT, AUTOMATED 174 10^3/uL (150-450); RED BLOOD COUNT 3.04 10^6/uL (4.00-5.40); WHITE BLOOD COUNT 8.2 10^3/uL (4.0-10.0)
[2021-10-21 06:22] LABS: CALCIUM LEVEL 8.6 MG/DL (8.8-10.2); CREATININE FOR GFR 2.35 MG/DL (0.55-1.30); POTASSIUM SERUM 4.8 MEQ/L (3.5-5.1)
[2021-10-21 06:41] VITALS: BP 142/59
[2021-10-21 09:03] VITALS: BP 166/81
[2021-10-21] MEDS: METOPROLOL TART 25 MG TABLET PO SCH (09:03)
[2021-10-21] MEDS: VITAMIN D 1,000 INTERNATIONAL UNITS TABLET PO SCH (09:04)
[2021-10-21] MEDS: amLODIPine 5 MG TAB PO SCH (09:04)
[2021-10-21] MEDS: SODIUM CHLORIDE 0.9% INJ 10 ML SYR IV SCH (09:04)
[2021-10-21] MEDS: HumaLOG INSULIN (NovoLOG) PER UNIT SC SCH ×2 (09:05→12:00)
[2021-10-21] MEDS: PREGABALIN 25 MG CAP (LYRICA) PO SCH (09:25)
[2021-10-21] MEDS ORDERED: LANTINJ4 SC (09:51)
[2021-10-21] MEDS ORDERED: VITAD1000T PO (09:51)
[2021-10-21] MEDS ORDERED: AMLO1TAB24 PO (09:51)
[2021-10-21] MEDS ORDERED: VELT1POW PO (09:51)
[2021-10-21] MEDS ORDERED: PREG25CA PO ×2 (09:51→10:03)
[2021-10-22] MEDS ORDERED: PATIROMER SORBITEX CALCIUM 8.4 GM POWDER PACKET (VELTASSA) PO SCH (07:00)
== END 2021-10-21 12:45 | disposition home or self-care (01) | DRG 41 ==
LOC: M ED 09:48 → M ED INP 13:03 → ENRESERV 13:11 → M PCU 14:38 → M MSPAV 10-17 15:15
PROVIDERS: ADMIT Internal Medicine; ATTEND Internal Medicine
PROC: 0JBR0ZZ Excision of Left Foot Subcutaneous Tissue and Fascia, Open Approach (ICD-10-PCS; principal; 2021-10-16)
DX: G92.9 Unspecified toxic encephalopathy (principal); N17.9 Acute kidney failure, unspecified; N12 Tubulo-interstitial nephritis, not specified as acute or chronic; E87.0 Hyperosmolality and hypernatremia; E87.2 Acidosis; M86.172 Other acute osteomyelitis, left ankle and foot; I13.0 Hypertensive heart and chronic kidney disease with heart failure and stage 1 through stage 4 chronic kidney disease, or unspecified chronic kidney disease; R25.1 Tremor, unspecified; E11.40 Type 2 diabetes mellitus with diabetic neuropathy, unspecified; I25.10 Atherosclerotic heart disease of native coronary artery without angina pectoris; I50.9 Heart failure, unspecified; R29.90 Unspecified symptoms and signs involving the nervous system; E11.621 Type 2 diabetes mellitus with foot ulcer; L97.529 Non-pressure chronic ulcer of other part of left foot with unspecified severity; E11.69 Type 2 diabetes mellitus with other specified complication; Z79.4 Long term (current) use of insulin; Z79.899 Other long term (current) drug therapy; Z91.040 Latex allergy status; T36.95XA Adverse effect of unspecified systemic antibiotic, initial encounter; I25.2 Old myocardial infarction; F17.200 Nicotine dependence, unspecified, uncomplicated; M19.90 Unspecified osteoarthritis, unspecified site; D63.8 Anemia in other chronic diseases classified elsewhere; N18.9 Chronic kidney disease, unspecified

== ENCOUNTER → 2021-12-03 | Outpatient (CLI) | payer MEDICARE, MEDICAID ==
[~2021-12-03] MED LIST changes: +AMLO1TAB24 PO; +CEFE2INJ5 IM; +HYDR-3713 PO; +LEVO500T4 PO; -LevoFLOXacin 250 MG TABLET PO SCH; +PREG25CA PO; +VANC-7 IM; +VELT1POW PO; +VITAD1000T PO; +VITMTA PO
[2021-12-03 15:29] LABS: C REACTIVE PROTEIN QUANTITATIV 0.3 MG/DL (0.00-0.30); CALCIUM LEVEL 9.4 MG/DL (8.8-10.2); CREATININE FOR GFR 1.29 MG/DL (0.55-1.30); POTASSIUM SERUM 4.7 MEQ/L (3.5-5.1)
[2021-12-03 15:34] LABS: BASO % 0.4 % (0.0-1.0); EOS # 0.1 10^3/uL (0.0-0.5); EOS % 0.6 % (0.0-3.0); HEMATOCRIT 39.3 % (36.0-47.0); HEMOGLOBIN 12.4 g/dl (12.0-15.5); LYMPH # 2.9 10^3/uL (1.5-5.0); LYMPH % 27.8 % (24.0-44.0); MEAN CORPUSCULAR HEMOGLOBIN 28.4 pg (27.0-33.0); MEAN CORPUSCULAR HGB CONC 31.6 g/dl (32.0-36.5); MEAN CORPUSCULAR VOLUME 89.9 fl (80.0-96.0); MONO # 0.5 10^3/uL (0.0-0.8); MONO % 4.5 % (2.0-8.0); NEUTROPHILS # 6.9 10^3/uL (1.5-8.5); NEUTROPHILS % 66.4 % (36.0-66.0); PLATELET COUNT, AUTOMATED 316 10^3/uL (150-450); RED BLOOD COUNT 4.37 10^6/uL (4.00-5.40); WHITE BLOOD COUNT 10.3 10^3/uL (4.0-10.0)
[2021-12-03 16:00] LABS: ERYTHROCYTE SEDIMENTATION RATE 32 mm/hr (0-30)
== END ==
LOC: M PLALAB 12:37
PROVIDERS: ATTEND Internal Medicine Infectious Disease
DX: M86.9 Osteomyelitis, unspecified (principal)

== ENCOUNTER 2021-12-17 13:02 | Outpatient (CLI) | payer MEDICARE, MEDICAID ==
[~2021-12-17 13:02] MED LIST changes: +SODIUM CHLORIDE 0.9% INJ 10 ML SYR IV SCH
[2021-12-17 13:15] VITALS: BP 138/82
== END 2021-12-17 13:40 | disposition home or self-care (01) ==
LOC: M INFU 13:02
PROVIDERS: ATTEND Internal Medicine Infectious Disease
DX: M86.9 Osteomyelitis, unspecified (principal); Z91.040 Latex allergy status; Z91.048 Other nonmedicinal substance allergy status
CPT/HCPCS: 96523; J1642

== ENCOUNTER 2022-01-14 14:53 | Outpatient (CLI) | payer MEDICARE, MEDICAID ==
[2022-01-14 15:12] VITALS: BP 178/84
[2022-01-14 15:43] LABS: BASO % 0.2 % (0.0-1.0); EOS # 0.1 10^3/uL (0.0-0.5); EOS % 0.9 % (0.0-3.0); HEMATOCRIT 36.2 % (36.0-47.0); HEMOGLOBIN 11.8 g/dl (12.0-15.5); LYMPH # 3.1 10^3/uL (1.5-5.0); LYMPH % 30.1 % (24.0-44.0); MEAN CORPUSCULAR HEMOGLOBIN 28.4 pg (27.0-33.0); MEAN CORPUSCULAR HGB CONC 32.6 g/dl (32.0-36.5); MONO # 0.6 10^3/uL (0.0-0.8); MONO % 6.1 % (2.0-8.0); NEUTROPHILS # 6.4 10^3/uL (1.5-8.5); NEUTROPHILS % 62.2 % (36.0-66.0); PLATELET COUNT, AUTOMATED 246 10^3/uL (150-450); RED BLOOD COUNT 4.16 10^6/uL (4.00-5.40); WHITE BLOOD COUNT 10.2 10^3/uL (4.0-10.0)
[2022-01-14 16:00] LABS: ALBUMIN 2.7 GM/DL (3.2-5.2); BILIRUBIN,TOTAL 0.3 MG/DL (0.2-1.0); C REACTIVE PROTEIN QUANTITATIV 0.3 MG/DL (0.00-0.30); CALCIUM LEVEL 9.2 MG/DL (8.8-10.2); CREATININE FOR GFR 1.15 MG/DL (0.55-1.30); GLOMERULAR FILTRATION RATE 50.3 (>45); TOTAL PROTEIN 5.5 GM/DL (6.4-8.2)
[2022-01-14 16:07] LABS: ERYTHROCYTE SEDIMENTATION RATE 43 mm/hr (0-30)
== END 2022-01-14 15:20 | disposition home or self-care (01) ==
LOC: M INFU 14:53
PROVIDERS: ATTEND Internal Medicine Infectious Disease
DX: M86.9 Osteomyelitis, unspecified (principal); Z91.048 Other nonmedicinal substance allergy status; Z91.040 Latex allergy status
CPT/HCPCS: 36591; 80053; 85025; 85652; 86140; 96523; J1642

== ENCOUNTER 2022-02-13 14:20 | Outpatient (CLI) | payer MEDICARE, MEDICAID ==
[2022-02-13 14:20] VITALS: BP 146/69
[~2022-02-13 14:20] MED LIST changes: +LEVO1TAB39 PO; -LEVO500T4 PO
[2022-02-14 00:18] LABS: HEMOGLOBIN A1c 8.1 %
== END 2022-02-13 14:35 | disposition home or self-care (01) ==
LOC: M INFU 14:20
PROVIDERS: ATTEND Internal Medicine Infectious Disease
DX: M86.9 Osteomyelitis, unspecified (principal); Z91.040 Latex allergy status; Z91.048 Other nonmedicinal substance allergy status
CPT/HCPCS: 36591; 83036; 96523; J1642

== ENCOUNTER → 2022-02-14 | Outpatient (CLI) | payer MEDICARE, MEDICAID ==
[~2022-02-14] MED LIST changes: -SODIUM CHLORIDE 0.9% INJ 10 ML SYR IV SCH
== END ==
LOC: M PLARAD 12:39
PROVIDERS: ATTEND Internal Medicine Infectious Disease
DX: M86.9 Osteomyelitis, unspecified (principal); Z91.040 Latex allergy status; Z91.048 Other nonmedicinal substance allergy status; Z79.899 Other long term (current) drug therapy

== ENCOUNTER → 2022-03-05 | Outpatient (CLI) | payer MEDICARE, MEDICAID ==
[~2022-03-05] MED LIST changes: +GASTROGRAFIN SOLUTION 30ML (Q9963) As Ordered ONE; +ISOVUE-370 76% 100ML VIAL As Ordered ONE
== END ==
LOC: M RAD 13:03
PROVIDERS: ATTEND Student in an Organized Health Care Education/Training Program
DX: K46.9 Unspecified abdominal hernia without obstruction or gangrene (principal)
CPT/HCPCS: 74177; Q9963; Q9967

== ENCOUNTER 2022-03-13 15:00 | Outpatient (CLI) | payer MEDICARE, MEDICAID ==
[~2022-03-13 15:00] MED LIST changes: -GASTROGRAFIN SOLUTION 30ML (Q9963) As Ordered ONE; -ISOVUE-370 76% 100ML VIAL As Ordered ONE; +SODIUM CHLORIDE 0.9% INJ 10 ML SYR IV SCH
[2022-03-13 15:03] VITALS: BP 140/67
== END 2022-03-13 15:10 | disposition home or self-care (01) ==
LOC: M INFU 15:00
PROVIDERS: ATTEND Internal Medicine Infectious Disease
DX: M86.9 Osteomyelitis, unspecified (principal); Z91.040 Latex allergy status; Z91.048 Other nonmedicinal substance allergy status
CPT/HCPCS: 96523; J1642

== ENCOUNTER 2022-04-15 16:16 | Outpatient (CLI) | payer MEDICARE, MEDICAID ==
[~2022-04-15 16:16] MED LIST changes: +SODIUM CHLORIDE 0.9% INJ 10 ML SYR IV PRN
[2022-04-15 16:20] VITALS: BP 160/77
== END 2022-04-15 16:30 | disposition home or self-care (01) ==
LOC: M INFU 16:16
PROVIDERS: ATTEND Internal Medicine Infectious Disease
DX: M86.9 Osteomyelitis, unspecified (principal); Z91.040 Latex allergy status; Z91.048 Other nonmedicinal substance allergy status
CPT/HCPCS: 96523; J1642

== ENCOUNTER 2022-05-13 14:00 | Outpatient (CLI) | payer MEDICARE, MEDICAID ==
[~2022-05-13 14:00] MED LIST changes: -SENN-52 PO; +SODIUM CHLORIDE 0.9% INJ 10 ML SYR IV SCH
[2022-05-13 14:30] VITALS: BP 178/79
== END 2022-05-13 14:36 | disposition home or self-care (01) ==
LOC: M INFU 14:00
PROVIDERS: ATTEND Internal Medicine Infectious Disease
DX: M86.9 Osteomyelitis, unspecified (principal); Z91.048 Other nonmedicinal substance allergy status
CPT/HCPCS: 36592; 82043; 83036; 96523; J1642

== ENCOUNTER → 2022-05-13 | Outpatient (CLI) | payer MEDICARE, MEDICAID ==
[~2022-05-13] MED LIST changes: +AMLO1TAB25 PO; +ECOT81TA5 PO; +HUMA100I5; +JARD1TAB PO; +SENN-52 PO; -SODIUM CHLORIDE 0.9% INJ 10 ML SYR IV PRN; -SODIUM CHLORIDE 0.9% INJ 10 ML SYR IV SCH
[2022-05-13 17:10] LABS: HEMOGLOBIN A1c 7.9 %
[2022-05-13 18:29] LABS: MAU/CREAT RATIO 8111.8 MCG/MG (0.0-30.0)
== END ==
LOC: M LAB 14:56
PROVIDERS: ATTEND Student in an Organized Health Care Education/Training Program
DX: E11.42 Type 2 diabetes mellitus with diabetic polyneuropathy (principal)

== ENCOUNTER → 2022-05-18 | Outpatient (CLI) | payer MEDICARE, MEDICAID ==
[~2022-05-18] MED LIST changes: -SODIUM CHLORIDE 0.9% INJ 10 ML SYR IV SCH
== END ==
LOC: M LABSMTC 11:07
PROVIDERS: ATTEND Anesthesiology
DX: Z20.828 Contact with and (suspected) exposure to other viral communicable diseases (principal); Z11.59 Encounter for screening for other viral diseases

== ENCOUNTER 2022-05-23 06:15 | Inpatient (IN) | payer MEDICARE, MEDICAID ==
[2022-05-23] VITALS (7 sets, daily range): BP systolic 115–138; BP diastolic 60–69
[~2022-05-23] VITALS: Ht 160 cm; Wt 70.5 kg
[~2022-05-23 06:15] MED LIST changes: +CelecoXIB 400 MG CAP PO ONE; +HEPARIN SOD (PORCINE) 5000UNITS/ML 1ML VIAL/SYRINGE SQ ONE; +cefoTEtan DISODIUM 2 GM in D5W MINI-BAG PLUS 50 ML IV ONE
[2022-05-23] MEDS ORDERED: LR 1,000 ML IV SCH ×2 (06:35→14:35)
[2022-05-23] MEDS ORDERED: BUPIVACAINE LIPOSOME/PF 1.3% 20ML VIAL (13.3MG/ML)(EXPAREL) As Ordered ONE (07:12)
[2022-05-23] MEDS ORDERED: BUPIVACAINE HCL 0.25% 30ML VIAL As Ordered ONE (07:12)
[2022-05-23] MEDS ORDERED: LIDOCAINE 1% SDV 30ML VIAL As Ordered ONE (07:12)
[2022-05-23] MEDS ORDERED: BUPIVACAINE HCL 0.25% 10ML VIAL As Ordered ONE (07:12)
[2022-05-23] MEDS ORDERED: ROCURONIUM BROMIDE 50 MG/5 ML VIAL As Ordered ONE ×2 (07:13→10:57)
[2022-05-23] MEDS ORDERED: SUGAMMADEX SODIUM 500 MG/5 ML VIAL (BRIDION) As Ordered ONE (07:13)
[2022-05-23] MEDS ORDERED: LIDOCAINE 2% 100MG/5ML SDV (FOR ANES.) As Ordered ONE (07:13)
[2022-05-23] MEDS ORDERED: fentaNYL 100 MCG/2 ML INJECTION As Ordered ONE (07:13)
[2022-05-23] MEDS ORDERED: propofoL 200 MG/20 ML VIAL As Ordered ONE (07:13)
[2022-05-23] MEDS ORDERED: MIDAZOLAM INJ 2MG/2ML VIAL (J2250 PER 1MG) As Ordered ONE (07:13)
[2022-05-23] MEDS ORDERED: ONDANSETRON 4MG 2ML VIAL As Ordered ONE (07:14)
[2022-05-23] MEDS ORDERED: ACETAMINOPHEN 1000MG 100ML IV BAG As Ordered ONE (07:14)
[2022-05-23] MEDS ORDERED: KETAMINE HCL 200 MG/20 ML VIAL As Ordered ONE (07:15)
[2022-05-23] MEDS ORDERED: HOME MED LIST COMPLETE! XX SCH (07:30)
[2022-05-23] MEDS ORDERED: PHENYLephrine 500MCG 5ML (100MCG/ML) SYRINGE As Ordered ONE ×2 (08:19→09:13)
[2022-05-23] MEDS ORDERED: ePHEDrine SULFATE 25 MG/5 ML(5MG/ML) SYRINGE As Ordered ONE (08:19)
[2022-05-23] MEDS ORDERED: cefoTEtan 2GM VIAL As Ordered ONE (13:52)
[2022-05-23] MEDS ORDERED: oxyCODONE 5MG TAB PO PRN (14:35)
[2022-05-23] MEDS ORDERED: ONDANSETRON 4MG 2ML VIAL IV PRN ×2 (14:35→14:50)
[2022-05-23] MEDS ORDERED: fentaNYL 100 MCG/2 ML INJECTION IV PRN (14:35)
[2022-05-23] MEDS ORDERED: MORPHINE 2 MG/ML 1ML VIAL IV PRN (14:35)
[2022-05-23] MEDS ORDERED: GLUCAGON INJ 1MG VIAL SC PRN (14:50)
[2022-05-23] MEDS ORDERED: MOM 30ML SUSPENSION UDC PO PRN (14:50)
[2022-05-23] MEDS ORDERED: DEXTROSE 50% 50 ML SYRINGE IV PRN (14:50)
[2022-05-23] MEDS ORDERED: GLUCOSE 4GM CHEW TABLET PO PRN (14:50)
[2022-05-23] MEDS ORDERED: MORPHINE 4 MG/ML 1ML VIAL IV PRN (14:50)
[2022-05-23] MEDS ORDERED: PERCOCET 5MG/325MG TAB PO PRN ×2 (14:50)
[2022-05-23] MEDS ORDERED: ACETAMINOPHEN TAB 650MG DOSE (2X325MG) PO PRN (14:50)
[2022-05-23] MEDS: KETOROLAC 30 MG/ML 1ML VIAL IV SCH ×2 (18:04→21:23)
[2022-05-23] MEDS: INSULIN LISPRO (NovoLOG) PER UNIT SC SCH (18:05)
[2022-05-23] MEDS: PREGABALIN 25 MG CAP (LYRICA) PO SCH ×2 (18:05→21:22)
[2022-05-23] MEDS: LR 1,000 ML IV SCH (18:06)
[2022-05-23] MEDS: SENOKOT S TAB PO SCH (21:22)
[2022-05-23] MEDS: ATORVASTATIN 20 MG TAB PO SCH (21:22)
[2022-05-23] MEDS: METOPROLOL TART 25 MG TABLET PO SCH (21:23)
[2022-05-24 01:30] VITALS: BP 122/60
[2022-05-24] MEDS: LR 1,000 ML IV SCH ×2 (02:00→09:49)
[2022-05-24] MEDS: KETOROLAC 30 MG/ML 1ML VIAL IV SCH ×4 (04:00→21:33)
[2022-05-24 06:00] VITALS: BP 115/58
[2022-05-24] MEDS: INSULIN LISPRO (NovoLOG) PER UNIT SC SCH ×5 (06:18→21:00)
[2022-05-24 06:26] LABS: BASO % 0.3 % (0.0-1.0); EOS # 0.1 10^3/uL (0.0-0.5); EOS % 0.4 % (0.0-3.0); HEMATOCRIT 30.1 % (36.0-47.0); HEMOGLOBIN 9.4 g/dl (12.0-15.5); LYMPH # 1.9 10^3/uL (1.5-5.0); LYMPH % 14.1 % (24.0-44.0); MEAN CORPUSCULAR HGB CONC 31.2 g/dl (32.0-36.5); MEAN CORPUSCULAR VOLUME 96.2 fl (80.0-96.0); MONO % 7.7 % (2.0-8.0); NEUTROPHILS # 10.5 10^3/uL (1.5-8.5); PLATELET COUNT, AUTOMATED 251 10^3/uL (150-450); RED BLOOD COUNT 3.13 10^6/uL (4.00-5.40); WHITE BLOOD COUNT 13.6 10^3/uL (4.0-10.0)
[2022-05-24 06:49] LABS: CALCIUM LEVEL 8.2 MG/DL (8.8-10.2); CREATININE FOR GFR 1.77 MG/DL (0.55-1.30); GLOMERULAR FILTRATION RATE 30.5 (>45); POTASSIUM SERUM 5.9 MEQ/L (3.5-5.1)
[2022-05-24] MEDS: VITAMIN D 1,000 INTERNATIONAL UNITS TABLET PO SCH (09:48)
[2022-05-24] MEDS: ENOXAPARIN 40MG/0.4ML SYRINGE (J1650 PER 10MG) SC SCH (09:48)
[2022-05-24] MEDS: ASPIRIN 81MG ENTERIC TABLET PO SCH (09:48)
[2022-05-24] MEDS: METOPROLOL TART 25 MG TABLET PO SCH ×2 (09:48→20:31)
[2022-05-24] MEDS: SENOKOT S TAB PO SCH ×3 (09:48→20:33)
[2022-05-24] MEDS: PREGABALIN 25 MG CAP (LYRICA) PO SCH ×3 (09:51→20:29)
[2022-05-24 10:00] VITALS: BP 118/59
[2022-05-24 14:00] VITALS: BP 118/59
[2022-05-24 20:00] VITALS: BP 117/59
[2022-05-24] MEDS: ATORVASTATIN 20 MG TAB PO SCH (20:29)
[2022-05-25 02:41] VITALS: BP 129/67
[2022-05-25] MEDS: KETOROLAC 30 MG/ML 1ML VIAL IV SCH ×2 (04:00→09:53)
[2022-05-25 05:29] VITALS: BP 129/66
[2022-05-25] MEDS: SENOKOT S TAB PO SCH ×3 (09:00→20:26)
[2022-05-25 09:24] LABS: CALCIUM LEVEL 8.3 MG/DL (8.8-10.2); CREATININE FOR GFR 1.77 MG/DL (0.55-1.30); GLOMERULAR FILTRATION RATE 30.5 (>45); POTASSIUM SERUM 5.7 MEQ/L (3.5-5.1)
[2022-05-25] MEDS: ENOXAPARIN 40MG/0.4ML SYRINGE (J1650 PER 10MG) SC SCH (09:51)
[2022-05-25] MEDS: INSULIN LISPRO (NovoLOG) PER UNIT SC SCH ×4 (09:52→21:00)
[2022-05-25] MEDS: VITAMIN D 1,000 INTERNATIONAL UNITS TABLET PO SCH (09:52)
[2022-05-25] MEDS: ASPIRIN 81MG ENTERIC TABLET PO SCH (09:52)
[2022-05-25] MEDS: METOPROLOL TART 25 MG TABLET PO SCH ×2 (09:52→20:20)
[2022-05-25] MEDS: PREGABALIN 25 MG CAP (LYRICA) PO SCH ×3 (09:52→20:18)
[2022-05-25] MEDS ORDERED: CALCIUM GLUCONATE 1,000 MG in D5W MINI-BAG PLUS 100 ML IV ONE (10:10)
[2022-05-25] MEDS ORDERED: SODIUM CHLORIDE 0.9% INJ 10 ML SYR IV PRN (10:10)
[2022-05-25] MEDS: NS 1,000 ML IV SCH ×2 (11:50→22:58)
[2022-05-25] MEDS ORDERED: PATIROMER SORBITEX CALCIUM 8.4 GM POWDER PACKET (VELTASSA) PO SCH (12:00)
[2022-05-25] MEDS ORDERED: PATIROMER SORBITEX CALCIUM 8.4 GM POWDER PACKET (VELTASSA) PO ONE (12:50)
[2022-05-25 18:00] VITALS: BP 142/69
[2022-05-25 19:50] LABS: CALCIUM LEVEL 8.9 MG/DL (8.8-10.2); CREATININE FOR GFR 1.46 MG/DL (0.55-1.30); POTASSIUM SERUM 5.4 MEQ/L (3.5-5.1)
[2022-05-25] MEDS: ATORVASTATIN 20 MG TAB PO SCH (20:18)
[2022-05-25 22:00] VITALS: BP 141/69
[2022-05-26 05:25] VITALS: BP 128/65
[2022-05-26 05:58] LABS: HEMATOCRIT 29.4 % (36.0-47.0); HEMOGLOBIN 9.3 g/dl (12.0-15.5); MEAN CORPUSCULAR HEMOGLOBIN 30.2 pg (27.0-33.0); MEAN CORPUSCULAR HGB CONC 31.6 g/dl (32.0-36.5); MEAN CORPUSCULAR VOLUME 95.5 fl (80.0-96.0); PLATELET COUNT, AUTOMATED 238 10^3/uL (150-450); RED BLOOD COUNT 3.08 10^6/uL (4.00-5.40); WHITE BLOOD COUNT 8.1 10^3/uL (4.0-10.0)
[2022-05-26 06:25] LABS: CALCIUM LEVEL 7.8 MG/DL (8.8-10.2); CREATININE FOR GFR 1.14 MG/DL (0.55-1.30); GLOMERULAR FILTRATION RATE 50.6 (>45); POTASSIUM SERUM 5.2 MEQ/L (3.5-5.1)
[2022-05-26] MEDS ORDERED: SENN-52 PO (07:40)
[2022-05-26] MEDS ORDERED: PERCOCET PO (07:40)
[2022-05-26] MEDS: SENOKOT S TAB PO SCH (09:00)
[2022-05-26] MEDS: SODIUM CHLORIDE 0.9% INJ 10 ML SYR IV SCH ×2 (09:00→15:46)
[2022-05-26] MEDS ORDERED: CALCIUM GLUCONATE 1,000 MG in D5W MINI-BAG PLUS 100 ML IV ONE (09:00)
[2022-05-26] MEDS ORDERED: PATIROMER SORBITEX CALCIUM 8.4 GM POWDER PACKET (VELTASSA) PO ONE (09:00)
[2022-05-26] MEDS: PREGABALIN 25 MG CAP (LYRICA) PO SCH (09:23)
[2022-05-26] MEDS: ASPIRIN 81MG ENTERIC TABLET PO SCH (09:23)
[2022-05-26] MEDS: NS 1,000 ML IV SCH (09:23)
[2022-05-26] MEDS: VITAMIN D 1,000 INTERNATIONAL UNITS TABLET PO SCH (09:23)
[2022-05-26] MEDS: INSULIN LISPRO (NovoLOG) PER UNIT SC SCH ×2 (09:24→12:50)
[2022-05-26] MEDS: ENOXAPARIN 40MG/0.4ML SYRINGE (J1650 PER 10MG) SC SCH (09:24)
[2022-05-26 09:25] VITALS: BP 149/71
[2022-05-26] MEDS: METOPROLOL TART 25 MG TABLET PO SCH (09:25)
[2022-05-26 14:00] VITALS: BP 143/68
[2022-05-27] MEDS ORDERED: PATIROMER SORBITEX CALCIUM 8.4 GM POWDER PACKET (VELTASSA) PO SCH (12:00)
== END 2022-05-26 14:20 | disposition home or self-care (01) | DRG 354 ==
LOC: M OR 06:15 → M MSPAV 16:23
PROVIDERS: ADMIT Surgery; ATTEND Surgery
PROC: 0KQ Muscles, Repair (ICD-10-PCS; 2022-05-23)
PROC: 8E0W4CZ Robotic Assisted Procedure of Trunk Region, Percutaneous Endoscopic Approach (ICD-10-PCS; 2022-05-23)
PROC: 0WUF0JZ Supplement Abdominal Wall with Synthetic Substitute, Open Approach (ICD-10-PCS; principal; 2022-05-23 07:30)
DX: K43.2 Incisional hernia without obstruction or gangrene (principal); I13.0 Hypertensive heart and chronic kidney disease with heart failure and stage 1 through stage 4 chronic kidney disease, or unspecified chronic kidney disease; I50.32 Chronic diastolic (congestive) heart failure; N17.9 Acute kidney failure, unspecified; E11.40 Type 2 diabetes mellitus with diabetic neuropathy, unspecified; F17.200 Nicotine dependence, unspecified, uncomplicated; M19.90 Unspecified osteoarthritis, unspecified site; Z79.4 Long term (current) use of insulin; I25.10 Atherosclerotic heart disease of native coronary artery without angina pectoris; I25.2 Old myocardial infarction; N18.30 Chronic kidney disease, stage 3 unspecified; E87.5 Hyperkalemia; Z79.82 Long term (current) use of aspirin; Z79.899 Other long term (current) drug therapy

== ENCOUNTER → 2022-07-08 | Outpatient (REF) | payer MEDICARE, MEDICAID ==
[~2022-07-08] MED LIST changes: -CelecoXIB 400 MG CAP PO ONE; -HEPARIN SOD (PORCINE) 5000UNITS/ML 1ML VIAL/SYRINGE SQ ONE; +SENN-52 PO; -cefoTEtan DISODIUM 2 GM in D5W MINI-BAG PLUS 50 ML IV ONE
[2022-07-08 15:22] LABS: HEMATOCRIT 25.9 % (36.0-47.0); MEAN CORPUSCULAR HEMOGLOBIN 28.6 pg (27.0-33.0); MEAN CORPUSCULAR HGB CONC 30.9 g/dl (32.0-36.5); MEAN CORPUSCULAR VOLUME 92.5 fl (80.0-96.0); PLATELET COUNT, AUTOMATED 261 10^3/uL (150-450); WHITE BLOOD COUNT 12.3 10^3/uL (4.0-10.0)
[2022-07-08 15:33] LABS: ERYTHROCYTE SEDIMENTATION RATE 63 mm/hr (0-30)
[2022-07-08 15:46] LABS: ALKALINE PHOSPHATASE 109 U/L (46-116); ALT/SGPT 10 U/L (7.0-40); AST/SGOT 9 U/L (<34); BILIRUBIN,TOTAL 0.2 MG/DL (0.3-1.2); BLOOD UREA NITROGEN 15 MG/DL (9-23); C REACTIVE PROTEIN QUANTITATIV < 0.40 MG/DL (<1.0); CALCIUM LEVEL 8.5 MG/DL (8.3-10.6); CARBON DIOXIDE LEVEL 26 MMOL/L (20-31); CHLORIDE LEVEL 112 MMOL/L (98-107); CREATININE FOR GFR 1.25 MG/DL (0.55-1.30); GLOMERULAR FILTRATION RATE 45.5 (>45); GLUCOSE, FASTING 180 MG/DL (74-106); POTASSIUM SERUM 4.3 MMOL/L (3.5-5.1); SODIUM LEVEL 145 MMOL/L (136-145); TOTAL PROTEIN 5.5 G/DL (5.7-8.2)
== END ==
LOC: M LAB REF 14:52
PROVIDERS: ATTEND Physician Assistant
DX: M86.171 Other acute osteomyelitis, right ankle and foot (principal); Z79.2 Long term (current) use of antibiotics

== ENCOUNTER → 2022-07-15 | Outpatient (REF) | payer MEDICARE, MEDICAID ==
[2022-07-15 13:21] LABS: HEMATOCRIT 27.7 % (36.0-47.0); HEMOGLOBIN 8.6 g/dl (12.0-15.5); MEAN CORPUSCULAR HEMOGLOBIN 28.8 pg (27.0-33.0); MEAN CORPUSCULAR VOLUME 92.6 fl (80.0-96.0); PLATELET COUNT, AUTOMATED 249 10^3/uL (150-450); RED BLOOD COUNT 2.99 10^6/uL (4.00-5.40)
[2022-07-15 13:42] LABS: ERYTHROCYTE SEDIMENTATION RATE 40 mm/hr (0-30)
[2022-07-15 13:52] LABS: C REACTIVE PROTEIN QUANTITATIV < 0.40 MG/DL (<1.0)
[2022-07-15 13:54] LABS: ALKALINE PHOSPHATASE 123 U/L (46-116); ALT/SGPT 13 U/L (7.0-40); AST/SGOT 15 U/L (<34); BILIRUBIN,TOTAL 0.3 MG/DL (0.3-1.2); BLOOD UREA NITROGEN 15 MG/DL (9-23); CALCIUM LEVEL 8.4 MG/DL (8.3-10.6); CARBON DIOXIDE LEVEL 27 MMOL/L (20-31); CHLORIDE LEVEL 110 MMOL/L (98-107); GLOMERULAR FILTRATION RATE 47.7 (>45); GLUCOSE, FASTING 186 MG/DL (74-106); POTASSIUM SERUM 4.1 MMOL/L (3.5-5.1); SODIUM LEVEL 143 MMOL/L (136-145); TOTAL PROTEIN 5.4 G/DL (5.7-8.2)
== END ==
LOC: M LAB REF 12:35
PROVIDERS: ATTEND Physician Assistant
DX: Z79.02 Long term (current) use of antithrombotics/antiplatelets (principal); M86.171 Other acute osteomyelitis, right ankle and foot; N18.9 Chronic kidney disease, unspecified

== ENCOUNTER → 2022-07-28 | Outpatient (REF) | payer MEDICARE, MEDICAID ==
[2022-07-28 13:41] LABS: HEMATOCRIT 28.6 % (36.0-47.0); HEMOGLOBIN 8.9 g/dl (12.0-15.5); MEAN CORPUSCULAR HEMOGLOBIN 29.2 pg (27.0-33.0); MEAN CORPUSCULAR HGB CONC 31.1 g/dl (32.0-36.5); MEAN CORPUSCULAR VOLUME 93.8 fl (80.0-96.0); PLATELET COUNT, AUTOMATED 218 10^3/uL (150-450); RED BLOOD COUNT 3.05 10^6/uL (4.00-5.40); WHITE BLOOD COUNT 8.9 10^3/uL (4.0-10.0)
[2022-07-28 13:55] LABS: ERYTHROCYTE SEDIMENTATION RATE 39 mm/hr (0-30)
[2022-07-28 14:12] LABS: C REACTIVE PROTEIN QUANTITATIV < 0.40 MG/DL (<1.0)
[2022-07-28 14:13] LABS: ALBUMIN 1.9 G/DL (3.2-5.2); ALKALINE PHOSPHATASE 260 U/L (46-116); ALT/SGPT 68 U/L (7.0-40); AST/SGOT 42 U/L (<34); BILIRUBIN,TOTAL 0.3 MG/DL (0.3-1.2); BLOOD UREA NITROGEN 19 MG/DL (9-23); CALCIUM LEVEL 7.8 MG/DL (8.3-10.6); CARBON DIOXIDE LEVEL 25 MMOL/L (20-31); CHLORIDE LEVEL 109 MMOL/L (98-107); CREATININE FOR GFR 1.43 MG/DL (0.55-1.30); GLUCOSE, FASTING 199 MG/DL (74-106); POTASSIUM SERUM 4.6 MMOL/L (3.5-5.1); SODIUM LEVEL 142 MMOL/L (136-145); TOTAL PROTEIN 4.9 G/DL (5.7-8.2)
== END ==
LOC: M LAB REF 12:44
PROVIDERS: ATTEND Physician Assistant
DX: M86.171 Other acute osteomyelitis, right ankle and foot (principal)

== ENCOUNTER → 2022-08-25 | Outpatient (CLI) | payer MEDICARE, MEDICAID ==
[2022-08-25 16:31] LABS: BASO # 0.1 10^3/uL (0.0-0.2); BASO % 0.7 % (0.0-1.0); EOS # 0.2 10^3/uL (0.0-0.5); HEMATOCRIT 38.6 % (36.0-47.0); HEMOGLOBIN 12.4 g/dl (12.0-15.5); LYMPH % 21.9 % (24.0-44.0); MEAN CORPUSCULAR HEMOGLOBIN 29.2 pg (27.0-33.0); MEAN CORPUSCULAR HGB CONC 32.1 g/dl (32.0-36.5); MONO # 0.6 10^3/uL (0.0-0.8); MONO % 6.5 % (2.0-8.0); NEUTROPHILS # 6.3 10^3/uL (1.5-8.5); NEUTROPHILS % 68.4 % (36.0-66.0); PLATELET COUNT, AUTOMATED 304 10^3/uL (150-450); RED BLOOD COUNT 4.24 10^6/uL (4.00-5.40); WHITE BLOOD COUNT 9.2 10^3/uL (4.0-10.0)
[2022-08-25 16:59] LABS: ERYTHROCYTE SEDIMENTATION RATE 107 mm/hr (0-30)
[2022-08-25 17:13] LABS: ALBUMIN 2.2 G/DL (3.2-5.2); BILIRUBIN,TOTAL 0.2 MG/DL (0.3-1.2); CALCIUM LEVEL 8.5 MG/DL (8.3-10.6); CREATININE FOR GFR 1.4 MG/DL (0.55-1.30); GLOMERULAR FILTRATION RATE 39.9 (>45); POTASSIUM SERUM 5.5 MMOL/L (3.5-5.1); TOTAL PROTEIN 5.9 G/DL (5.7-8.2)
== END ==
LOC: M LAB 15:53
PROVIDERS: ATTEND Podiatrist
DX: L89.892 Pressure ulcer of other site, stage 2 (principal)

== ENCOUNTER → 2022-08-25 | Outpatient (CLI) | payer MEDICARE, MEDICAID ==
[2022-08-25 17:27] LABS: HEMOGLOBIN A1c 8.3 % (4.0-6.0)
== END ==
LOC: M LAB 15:09
PROVIDERS: ATTEND Student in an Organized Health Care Education/Training Program
DX: E11.69 Type 2 diabetes mellitus with other specified complication (principal)

== ENCOUNTER 2023-07-03 17:47 | Observation (INO) | payer MEDICARE, MEDICAID ==
[~2023-07-03] VITALS: Ht 160 cm; Wt 92.6 kg
[~2023-07-03 17:47] MED LIST changes: -HUMA100I5
[2023-07-03] MEDS ORDERED: LABETALOL 100MG/20ML VIAL IV STA (18:10)
[2023-07-03 19:02] LABS: BASO # 0.1 10^3/uL (0.0-0.2); BASO % 0.5 % (0.0-1.0); EOS # 0.1 10^3/uL (0.0-0.5); EOS % 1.1 % (0.0-3.0); HEMATOCRIT 35.5 % (36.0-47.0); HEMOGLOBIN 11.1 g/dl (12.0-15.5); LYMPH # 2.7 10^3/uL (1.5-5.0); MEAN CORPUSCULAR HGB CONC 31.3 g/dl (32.0-36.5); MEAN CORPUSCULAR VOLUME 92.7 fl (80.0-96.0); MONO # 0.7 10^3/uL (0.0-0.8); MONO % 6.9 % (2.0-8.0); NEUTROPHILS # 6.2 10^3/uL (1.5-8.5); NEUTROPHILS % 63.2 % (36.0-66.0); PLATELET COUNT, AUTOMATED 261 10^3/uL (150-450); RED BLOOD COUNT 3.83 10^6/uL (4.00-5.40); WHITE BLOOD COUNT 9.8 10^3/uL (4.0-10.0)
[2023-07-03 19:13] LABS: INR 0.96; PROTHROMBIN TIME 12.5 SECONDS (12.5-14.5)
[2023-07-03 19:14] LABS: PARTIAL THROMBOPLASTIN TIME 24.5 SECONDS (24.8-34.2)
[2023-07-03 19:26] LABS: CPK CREATINE PHOSPHOKINASE 123 U/L (34-145)
[2023-07-03 19:27] LABS: ALBUMIN 1.9 G/DL (3.2-5.2); ALKALINE PHOSPHATASE 176 U/L (46-116); ALT/SGPT 18 U/L (7.0-40); AST/SGOT 15 U/L (<34); BILIRUBIN,DIRECT < 0.1 MG/DL (<0.4); BILIRUBIN,TOTAL 0.3 MG/DL (0.3-1.2); BLOOD UREA NITROGEN 32 MG/DL (9-23); CALCIUM LEVEL 8.1 MG/DL (8.3-10.6); CARBON DIOXIDE LEVEL 23 MMOL/L (20-31); CHLORIDE LEVEL 114 MMOL/L (98-107); CREATININE FOR GFR 1.76 MG/DL (0.55-1.30); GLOMERULAR FILTRATION RATE 30.6 (>45); GLUCOSE, FASTING 200 MG/DL (74-106); MB/CK RELATIVE INDEX 1.62 (< OR =4); POTASSIUM SERUM 4.7 MMOL/L (3.5-5.1); SODIUM LEVEL 142 MMOL/L (136-145); TOTAL PROTEIN 5.1 G/DL (5.7-8.2)
[2023-07-03 19:28] LABS: FREE T4 0.76 NG/DL (0.89-1.76); THYROID STIMULATING HORMONE 6.027 uIU/ML (0.55-4.78)
[2023-07-03] MEDS ORDERED: MED REC IN PROGRESS XX SCH (19:40)
[2023-07-03 20:35] LABS: RSV AMPLIFICATION NEGATIVE (NEGATIVE)
[2023-07-03] MEDS ORDERED: PREG25CA PO (21:27)
[2023-07-03] MEDS ORDERED: HOME MED LIST COMPLETE! XX SCH (21:30)
[2023-07-03] MEDS: **hydrALAZINE** 50 MG TAB PO SCH (21:41)
[2023-07-03 21:44] LABS: APPEARANCE, URINE HAZY (CLEAR); BACTERIA, URINE AUTO NEGATIVE (NEGATIVE); BILIRUBIN, URINE AUTO NEGATIVE (NEGATIVE); BLOOD, URINE BLOOD 1+ (NEGATIVE); COLOR, URINE YELLOW (YELLOW); GLUCOSE, URINE (UA) AUTO 3+ mg/dL (NEGATIVE); KETONE, URINE AUTO NEGATIVE (NEGATIVE); LEUKOCYTE ESTERASE, URINE AUTO NEGATIVE (NEGATIVE); MUCUS, URINE SMALL (NEGATIVE); NITRITE, URINE AUTO NEGATIVE (NEGATIVE); PROTEIN, URINE AUTO 3+ mg/dL (NEGATIVE); RBC, URINE AUTO 7 /HPF (0-3); SPECIFIC GRAVITY URINE AUTO 1.016 (1.002-1.035); SQUAMOUS EPITHELIAL CELL UR AU 0 /HPF (0-6); UROBILINOGEN, URINE AUTO 0.2 mg/dL (0.0-2.0); WBC, URINE AUTO 2 /HPF (0-3)
[2023-07-03] MEDS ORDERED: DEXTROSE 50% 50ML SYRINGE IV PRN (21:45)
[2023-07-03] MEDS ORDERED: GLUCAGON INJ 1MG VIAL SC PRN (21:45)
[2023-07-03] MEDS ORDERED: GLUCOSE 4GM CHEW TABLET PO PRN (21:45)
[2023-07-03 21:59] LABS: THYROID PEROXIDASE ANTIBODY > 1300.0 U/ML (<60.0)
[2023-07-03 22:04] LABS: CREATININE,RANDOM URINE 36.3 MG/DL
[2023-07-03 22:11] LABS: TOTAL PROTEIN,RANDOM URINE 838.5 MG/DL (0.0-14.0)
[2023-07-03 23:24] VITALS: BP 170/80; TEMP 97.7; O2SAT 99
[2023-07-03] MEDS: INSULIN LISPRO (NovoLOG) PER UNIT SC SCH (23:34)
[2023-07-03] MEDS: PREGABALIN 25 MG CAP (LYRICA) PO SCH (23:37)
[2023-07-03] MEDS: METOPROLOL TART 25 MG TABLET PO SCH (23:37)
[2023-07-04 06:17] VITALS: BP 128/86; TEMP 97.5; O2SAT 95
[2023-07-04] MEDS: LEVOTHYROXINE 12.5MCG PER 1/2 TAB (0.0125MG) PO SCH (06:30)
[2023-07-04] MEDS: INSULIN LISPRO (NovoLOG) PER UNIT SC SCH ×4 (07:30→21:00)
[2023-07-04 08:27] LABS: CALCIUM LEVEL 8.5 MG/DL (8.3-10.6); CHOLESTEROL RISK RATIO 6.16 (<5); CREATININE FOR GFR 1.7 MG/DL (0.55-1.30); GLOMERULAR FILTRATION RATE 31.8 (>45); HDL CHOLESTEROL 27.9 MG/DL (>40); LDL CHOLESTEROL 99.5 MG/DL (<100); NON-HDL-C 144.1 MG/DL; PHOSPHORUS LEVEL 4.6 MG/DL (2.4-5.1); POTASSIUM SERUM 4.5 MMOL/L (3.5-5.1)
[2023-07-04] MEDS: ASPIRIN 81MG ENTERIC TABLET PO SCH (09:46)
[2023-07-04] MEDS: METOPROLOL TART 25 MG TABLET PO SCH ×2 (09:46→21:03)
[2023-07-04] MEDS: LEVEMIR (INSULIN DETEMIR) 1 UNITS/0.01ML SC SCH (09:46)
[2023-07-04] MEDS: ATORVASTATIN 20 MG TAB PO SCH (09:46)
[2023-07-04] MEDS: PREGABALIN 25 MG CAP (LYRICA) PO SCH ×3 (09:47→21:03)
[2023-07-04] MEDS: **hydrALAZINE** 50 MG TAB PO SCH (09:47)
[2023-07-04 10:17] LABS: HEMOGLOBIN A1c 9.1 % (4.0-6.0)
[2023-07-04] MEDS ORDERED: FUROSEMIDE 40 MG TAB PO ONE (12:30)
[2023-07-04 14:00] VITALS: BP 150/73; TEMP 97.5; O2SAT 96
[2023-07-04] MEDS: HEPARIN SOD (PORCINE) 5000UNITS/ML 1ML VIAL/SYRINGE SC SCH ×2 (16:20→21:04)
[2023-07-04] MEDS: **hydrALAZINE HCL** 25 MG TAB PO SCH ×2 (17:33→21:03)
[2023-07-04 22:00] VITALS: BP 152/72; TEMP 97.4; O2SAT 98
[2023-07-05 05:23] VITALS: BP 149/68; TEMP 97.5; O2SAT 97
[2023-07-05] MEDS: LEVOTHYROXINE 12.5MCG PER 1/2 TAB (0.0125MG) PO SCH (05:23)
[2023-07-05] MEDS: HEPARIN SOD (PORCINE) 5000UNITS/ML 1ML VIAL/SYRINGE SC SCH (05:23)
[2023-07-05] MEDS: INSULIN LISPRO (NovoLOG) PER UNIT SC SCH (07:30)
[2023-07-05] MEDS: ATORVASTATIN 20 MG TAB PO SCH (08:17)
[2023-07-05 08:18] VITALS: BP 149/68
[2023-07-05] MEDS: **hydrALAZINE HCL** 25 MG TAB PO SCH (08:18)
[2023-07-05] MEDS: METOPROLOL TART 25 MG TABLET PO SCH (08:18)
[2023-07-05] MEDS: PREGABALIN 25 MG CAP (LYRICA) PO SCH (08:18)
[2023-07-05] MEDS: ASPIRIN 81MG ENTERIC TABLET PO SCH (08:19)
[2023-07-05] MEDS: LEVEMIR (INSULIN DETEMIR) 1 UNITS/0.01ML SC SCH (08:19)
[2023-07-05 08:54] LABS: BASO % 0.5 % (0.0-1.0); EOS # 0.1 10^3/uL (0.0-0.5); EOS % 1.5 % (0.0-3.0); HEMATOCRIT 32.7 % (36.0-47.0); HEMOGLOBIN 10.1 g/dl (12.0-15.5); LYMPH # 2.7 10^3/uL (1.5-5.0); LYMPH % 32.9 % (24.0-44.0); MEAN CORPUSCULAR HEMOGLOBIN 28.8 pg (27.0-33.0); MEAN CORPUSCULAR HGB CONC 30.9 g/dl (32.0-36.5); MEAN CORPUSCULAR VOLUME 93.2 fl (80.0-96.0); MONO # 0.7 10^3/uL (0.0-0.8); NEUTROPHILS # 4.7 10^3/uL (1.5-8.5); NEUTROPHILS % 56.7 % (36.0-66.0); PLATELET COUNT, AUTOMATED 261 10^3/uL (150-450); RED BLOOD COUNT 3.51 10^6/uL (4.00-5.40); WHITE BLOOD COUNT 8.2 10^3/uL (4.0-10.0)
[2023-07-05 08:58] LABS: CALCIUM LEVEL 8.1 MG/DL (8.3-10.6); CREATININE FOR GFR 1.89 MG/DL (0.55-1.30); GLOMERULAR FILTRATION RATE 28.2 (>45); POTASSIUM SERUM 4.8 MMOL/L (3.5-5.1)
[2023-07-05] MEDS ORDERED: FUROSEMIDE 40 MG TAB PO SCH (09:00)
[2023-07-05] MEDS ORDERED: HYDR25TA PO (10:43)
[2023-07-05] MEDS ORDERED: LEVO25TA5 PO (10:43)
[2023-07-05] MEDS ORDERED: FURO40TA2 PO (10:43)
== END 2023-07-05 13:30 | disposition home or self-care (01) ==
LOC: M ED 17:47 → M ED INP 20:24 → M MS5PR 23:20
PROVIDERS: ADMIT Internal Medicine; ATTEND Internal Medicine
DX: I16.0 Hypertensive urgency (principal); E11.21 Type 2 diabetes mellitus with diabetic nephropathy; E11.40 Type 2 diabetes mellitus with diabetic neuropathy, unspecified; R60.0 Localized edema; I10 Essential (primary) hypertension; I25.10 Atherosclerotic heart disease of native coronary artery without angina pectoris; Z98.61 Coronary angioplasty status; E78.00 Pure hypercholesterolemia, unspecified; F17.218 Nicotine dependence, cigarettes, with other nicotine-induced disorders; E11.621 Type 2 diabetes mellitus with foot ulcer; I25.2 Old myocardial infarction; Z79.82 Long term (current) use of aspirin; Z79.4 Long term (current) use of insulin; Z79.899 Other long term (current) drug therapy; D64.9 Anemia, unspecified; E03.9 Hypothyroidism, unspecified
CPT/HCPCS: 36415; 71045; 76775; 80048; 80061; 80076; 81001; 82550; 82553; 82570; 83036; 83880; 84100; 84156; 84439; 84443; 84484; 85025; 85610; 85730; 86376; 87631; 93005; 93041; 93970; 94760; 96372; 96374; 99285; G0378; G0463; J1815; J1920

== ENCOUNTER → 2023-08-06 | Outpatient (CLI) | payer MEDICARE, MEDICAID ==
[~2023-08-06] MED LIST changes: +HYDR25TA PO; +LEVO25TA5 PO
[2023-08-06 14:21] LABS: BASO # 0.1 10^3/uL (0.0-0.2); BASO % 0.4 % (0.0-1.0); EOS # 0.1 10^3/uL (0.0-0.5); HEMATOCRIT 32.1 % (36.0-47.0); LYMPH # 2.5 10^3/uL (1.5-5.0); LYMPH % 21.2 % (24.0-44.0); MEAN CORPUSCULAR HEMOGLOBIN 29.3 pg (27.0-33.0); MEAN CORPUSCULAR HGB CONC 31.2 g/dl (32.0-36.5); MEAN CORPUSCULAR VOLUME 94.1 fl (80.0-96.0); MONO # 0.8 10^3/uL (0.0-0.8); MONO % 6.9 % (2.0-8.0); NEUTROPHILS # 8.3 10^3/uL (1.5-8.5); PLATELET COUNT, AUTOMATED 276 10^3/uL (150-450); RED BLOOD COUNT 3.41 10^6/uL (4.00-5.40); WHITE BLOOD COUNT 11.9 10^3/uL (4.0-10.0)
[2023-08-06 14:49] LABS: ALBUMIN 1.9 G/DL (3.2-5.2); BILIRUBIN,TOTAL 0.2 MG/DL (0.3-1.2); CALCIUM LEVEL 8.1 MG/DL (8.3-10.6); CREATININE FOR GFR 1.78 MG/DL (0.55-1.30); GLOMERULAR FILTRATION RATE 30.2 (>45); MAGNESIUM LEVEL 1.8 MG/DL (1.8-2.4); POTASSIUM SERUM 5.9 MMOL/L (3.5-5.1); TOTAL PROTEIN 4.7 G/DL (5.7-8.2)
[2023-08-06 14:50] LABS: FERRITIN 175.1 NG/ML (7.3-270.7)
[2023-08-06 14:51] LABS: FREE T4 0.84 NG/DL (0.89-1.76); THYROID STIMULATING HORMONE 4.704 uIU/ML (0.55-4.78)
== END ==
LOC: M LAB 13:43
PROVIDERS: ATTEND Physician Assistant
DX: Z09 Encounter for follow-up examination after completed treatment for conditions other than malignant neoplasm (principal); N04.9 Nephrotic syndrome with unspecified morphologic changes; E11.42 Type 2 diabetes mellitus with diabetic polyneuropathy; E11.21 Type 2 diabetes mellitus with diabetic nephropathy; I10 Essential (primary) hypertension; E03.9 Hypothyroidism, unspecified

== ENCOUNTER → 2023-08-13 | Outpatient (CLI) | payer MEDICARE, MEDICAID ==
[2023-08-13 14:18] LABS: BASO % 0.4 % (0.0-1.0); EOS # 0.2 10^3/uL (0.0-0.5); EOS % 1.6 % (0.0-3.0); HEMATOCRIT 33.2 % (36.0-47.0); HEMOGLOBIN 10.4 g/dl (12.0-15.5); LYMPH # 2.2 10^3/uL (1.5-5.0); LYMPH % 21.4 % (24.0-44.0); MEAN CORPUSCULAR HEMOGLOBIN 29.8 pg (27.0-33.0); MEAN CORPUSCULAR HGB CONC 31.3 g/dl (32.0-36.5); MEAN CORPUSCULAR VOLUME 95.1 fl (80.0-96.0); MONO # 0.7 10^3/uL (0.0-0.8); MONO % 6.3 % (2.0-8.0); NEUTROPHILS # 7.3 10^3/uL (1.5-8.5); NEUTROPHILS % 69.9 % (36.0-66.0); PLATELET COUNT, AUTOMATED 240 10^3/uL (150-450); RED BLOOD COUNT 3.49 10^6/uL (4.00-5.40); WHITE BLOOD COUNT 10.5 10^3/uL (4.0-10.0)
[2023-08-13 14:46] LABS: ALBUMIN 1.9 G/DL (3.2-5.2); BILIRUBIN,TOTAL 0.2 MG/DL (0.3-1.2); CALCIUM LEVEL 8.3 MG/DL (8.3-10.6); CREATININE FOR GFR 1.98 MG/DL (0.55-1.30); GLOMERULAR FILTRATION RATE 26.7 (>45); POTASSIUM SERUM 5.7 MMOL/L (3.5-5.1); TOTAL PROTEIN 5.2 G/DL (5.7-8.2)
== END ==
LOC: M LAB 13:42
PROVIDERS: ATTEND Physician Assistant
DX: I10 Essential (primary) hypertension (principal)

== ENCOUNTER → 2023-08-18 | Outpatient (CLI) | payer MEDICARE, MEDICAID ==
[2023-08-18 12:20] LABS: BASO % 0.3 % (0.0-1.0); EOS # 0.3 10^3/uL (0.0-0.5); EOS % 2.1 % (0.0-3.0); HEMATOCRIT 32.9 % (36.0-47.0); HEMOGLOBIN 10.3 g/dl (12.0-15.5); LYMPH # 2.7 10^3/uL (1.5-5.0); LYMPH % 22.8 % (24.0-44.0); MEAN CORPUSCULAR HEMOGLOBIN 29.5 pg (27.0-33.0); MEAN CORPUSCULAR HGB CONC 31.3 g/dl (32.0-36.5); MEAN CORPUSCULAR VOLUME 94.3 fl (80.0-96.0); MONO % 8.3 % (2.0-8.0); NEUTROPHILS # 7.8 10^3/uL (1.5-8.5); NEUTROPHILS % 66.1 % (36.0-66.0); PLATELET COUNT, AUTOMATED 250 10^3/uL (150-450); RED BLOOD COUNT 3.49 10^6/uL (4.00-5.40); WHITE BLOOD COUNT 11.9 10^3/uL (4.0-10.0)
[2023-08-18 12:54] LABS: ALBUMIN 1.8 G/DL (3.2-5.2); BILIRUBIN,TOTAL 0.2 MG/DL (0.3-1.2); CALCIUM LEVEL 8.2 MG/DL (8.3-10.6); CREATININE FOR GFR 1.93 MG/DL (0.55-1.30); FREE T4 0.84 NG/DL (0.89-1.76); GLOMERULAR FILTRATION RATE 27.5 (>45); PERCENT SATURATION 20.1 % (13.2-45.0); POTASSIUM SERUM 5.3 MMOL/L (3.5-5.1); THYROID STIMULATING HORMONE 5.405 uIU/ML (0.55-4.78); TOTAL PROTEIN 4.9 G/DL (5.7-8.2)
[2023-08-18 12:56] LABS: FERRITIN 171.8 NG/ML (7.3-270.7)
== END ==
LOC: M LAB 11:57
PROVIDERS: ATTEND Physician Assistant
DX: Z09 Encounter for follow-up examination after completed treatment for conditions other than malignant neoplasm (principal); N04.9 Nephrotic syndrome with unspecified morphologic changes; E11.42 Type 2 diabetes mellitus with diabetic polyneuropathy; E11.21 Type 2 diabetes mellitus with diabetic nephropathy; I10 Essential (primary) hypertension; E03.9 Hypothyroidism, unspecified

== ENCOUNTER → 2023-09-24 | Outpatient (REF) | payer MEDICARE, MEDICAID ==
[~2023-09-24] MED LIST changes: -HYDR25TA PO; +HYDR25TA88 PO
[2023-09-24 18:36] LABS: TOTAL PROTEIN,RANDOM URINE 241.6 MG/DL (0.0-14.0)
== END ==
LOC: M LAB REF 17:12
PROVIDERS: ATTEND Internal Medicine Nephrology
DX: N18.4 Chronic kidney disease, stage 4 (severe) (principal)

== ENCOUNTER → 2024-03-09 | Outpatient (REF) | payer MEDICARE, MEDICAID ==
[~2024-03-09] MED LIST changes: +DOXY-323 PO; -DOXY-443 PO; +GABA-1490 PO; -GABA600T4 PO
[2024-03-09 18:16] LABS: CREATININE,RANDOM URINE 68.7 MG/DL
[2024-03-09 18:17] LABS: TOTAL PROTEIN,RANDOM URINE 181.1 MG/DL (0.0-14.0)
== END ==
LOC: M LAB REF 17:04
PROVIDERS: ATTEND Internal Medicine Nephrology
DX: E11.22 Type 2 diabetes mellitus with diabetic chronic kidney disease (principal); N18.9 Chronic kidney disease, unspecified

== ENCOUNTER → 2024-04-19 | Outpatient (CLI) | payer MEDICARE, MEDICAID ==
[~2024-04-19] MED LIST changes: -DOXY-323 PO; +DOXY-441 PO; +GLIP10TA15; +GLIP10TA15 PO; -GLIP10TA6; -GLIP10TA6 PO
[2024-04-19 15:29] LABS: HEMOGLOBIN A1c 9.4 % (4.0-6.0)
[2024-04-19 15:36] LABS: CREATININE FOR GFR 2.59 MG/DL (0.55-1.30); GLOMERULAR FILTRATION RATE 19.5 (>45)
[2024-04-19 15:37] LABS: PREALBUMIN 12.5 MG/DL (10.0-40.0)
== END ==
LOC: M LAB 14:46
PROVIDERS: ATTEND Podiatrist
DX: E11.51 Type 2 diabetes mellitus with diabetic peripheral angiopathy without gangrene (principal); L89.891 Pressure ulcer of other site, stage 1; L89.892 Pressure ulcer of other site, stage 2

== ENCOUNTER 2024-09-24 09:59 | Outpatient (CLI) | payer MEDICARE, MEDICAID ==
[~2024-09-24] VITALS: Ht 160 cm; Wt 94.1 kg
[2024-09-24 10:15] VITALS: BP 111/57; O2SAT 98
[2024-09-24] MEDS: ERTAPENEM SODIUM 500 MG in NS 50 ML IV ONE (10:56)
== END 2024-09-24 11:55 | disposition home or self-care (01) ==
LOC: M OPCLI4PV 09:59 → M MSPAV 10:02 → M OPCLI4PV 11:55
PROVIDERS: ATTEND Family Medicine
DX: M86.171 Other acute osteomyelitis, right ankle and foot (principal); Z91.048 Other nonmedicinal substance allergy status
CPT/HCPCS: 96365; J1335

== ENCOUNTER 2024-09-25 11:12 | Outpatient (CLI) | payer MEDICARE, MEDICAID ==
[~2024-09-25] VITALS: Ht 160 cm; Wt 94.1 kg
[2024-09-25 11:40] VITALS: BP 141/64; O2SAT 99
[2024-09-25] MEDS: ERTAPENEM SODIUM 500 MG in NS 50 ML IV ONE (11:49)
== END 2024-09-25 12:40 | disposition home or self-care (01) ==
LOC: M OPCLI4PV 11:12 → M MSPAV 11:14 → M OPCLI4PV 12:40
PROVIDERS: ATTEND Family Medicine
DX: M86.171 Other acute osteomyelitis, right ankle and foot (principal); Z91.048 Other nonmedicinal substance allergy status
CPT/HCPCS: 96365; J1335

== ENCOUNTER 2024-09-26 14:12 | Outpatient (CLI) | payer MEDICARE, MEDICAID ==
[~2024-09-26] VITALS: Ht 160 cm; Wt 94.1 kg
[2024-09-26 14:25] VITALS: BP 156/66; O2SAT 99
[2024-09-26] MEDS: ERTAPENEM SODIUM 500 MG in NS 50 ML IV SCH (15:16)
[2024-09-26] MEDS: SODIUM CHLORIDE 0.9% INJ 10 ML SYR IV PRN (15:17)
[2024-09-26 16:00] VITALS: BP 136/74; O2SAT 97
== END 2024-09-26 16:00 ==
LOC: M INFU 14:12
PROVIDERS: ATTEND Family Medicine
DX: M86.171 Other acute osteomyelitis, right ankle and foot (principal); Z91.048 Other nonmedicinal substance allergy status
CPT/HCPCS: 96365; 96375; J1335; J1642

== ENCOUNTER 2024-09-27 16:10 | Outpatient (CLI) | payer MEDICARE, MEDICAID ==
[2024-09-27 16:10] VITALS: BP 136/61; O2SAT 97
[2024-09-27] MEDS: ERTAPENEM SODIUM 500 MG in NS 50 ML IV ONE (16:13)
[2024-09-27] MEDS ORDERED: SODIUM CHLORIDE 0.9% INJ 10 ML SYR IV PRN (16:20)
[2024-09-27] MEDS: SODIUM CHLORIDE 0.9% INJ 10 ML SYR IV SCH (16:35)
[2024-09-27 16:51] VITALS: BP 135/66; O2SAT 96
== END 2024-09-27 16:50 ==
LOC: M INFU 16:10
PROVIDERS: ATTEND Family Medicine
DX: M86.171 Other acute osteomyelitis, right ankle and foot (principal); Z91.048 Other nonmedicinal substance allergy status
CPT/HCPCS: 96365; J1335; J1642

== ENCOUNTER → 2024-09-28 | Outpatient (REF) | payer MEDICARE, MEDICAID ==
[2024-09-28 16:39] LABS: BASO % 0.3 % (0.0-1.0); EOS # 0.3 10^3/uL (0.0-0.5); EOS % 1.9 % (0.0-3.0); HEMATOCRIT 28.4 % (36.0-47.0); HEMOGLOBIN 8.8 g/dl (12.0-15.5); LYMPH # 2.1 10^3/uL (1.5-5.0); LYMPH % 14.5 % (24.0-44.0); MEAN CORPUSCULAR VOLUME 90.4 fl (80.0-96.0); MONO % 7.3 % (2.0-8.0); NEUTROPHILS # 10.7 10^3/uL (1.5-8.5); NEUTROPHILS % 75.5 % (36.0-66.0); PLATELET COUNT, AUTOMATED 368 10^3/uL (150-450); RED BLOOD COUNT 3.14 10^6/uL (4.00-5.40); WHITE BLOOD COUNT 14.2 10^3/uL (4.0-10.0)
[2024-09-28 17:11] LABS: ALBUMIN 1.7 G/DL (3.2-5.2); BILIRUBIN,TOTAL 0.2 MG/DL (0.3-1.2); C REACTIVE PROTEIN QUANTITATIV 12.09 MG/DL (<1.0); CALCIUM LEVEL 7.2 MG/DL (8.3-10.6); CREATININE FOR GFR 2.43 MG/DL (0.55-1.30); POTASSIUM SERUM 5.3 MMOL/L (3.5-5.1); TOTAL PROTEIN 6.1 G/DL (5.7-8.2)
== END ==
LOC: M SHH 15:45 → M LAB REF 15:45
PROVIDERS: ATTEND Student in an Organized Health Care Education/Training Program
DX: M86.9 Osteomyelitis, unspecified (principal); A49.8 Other bacterial infections of unspecified site; Z16.12 Extended spectrum beta lactamase (ESBL) resistance

== ENCOUNTER 2024-09-29 13:22 | Emergency (ER) | payer MEDICARE, MEDICAID ==
[~2024-09-29] VITALS: Ht 160 cm; Wt 93.9 kg
[2024-09-29 13:25] VITALS: BP 168/71; O2SAT 99
[2024-09-29 17:37] LABS: BASO % 0.2 % (0.0-1.0); EOS # 0.3 10^3/uL (0.0-0.5); EOS % 2.8 % (0.0-3.0); HEMATOCRIT 27.7 % (36.0-47.0); HEMOGLOBIN 8.7 g/dl (12.0-15.5); LYMPH # 1.8 10^3/uL (1.5-5.0); LYMPH % 14.7 % (24.0-44.0); MEAN CORPUSCULAR HEMOGLOBIN 28.2 pg (27.0-33.0); MEAN CORPUSCULAR HGB CONC 31.4 g/dl (32.0-36.5); MEAN CORPUSCULAR VOLUME 89.9 fl (80.0-96.0); MONO % 8.1 % (2.0-8.0); NEUTROPHILS # 9.1 10^3/uL (1.5-8.5); NEUTROPHILS % 73.6 % (36.0-66.0); PLATELET COUNT, AUTOMATED 369 10^3/uL (150-450); RED BLOOD COUNT 3.08 10^6/uL (4.00-5.40); WHITE BLOOD COUNT 12.3 10^3/uL (4.0-10.0)
[2024-09-29 17:44] LABS: ERYTHROCYTE SEDIMENTATION RATE 80 mm/hr (0-30)
[2024-09-29 18:02] LABS: C REACTIVE PROTEIN QUANTITATIV 7.67 MG/DL (<1.0); CALCIUM LEVEL 7.2 MG/DL (8.3-10.6); CREATININE FOR GFR 2.26 MG/DL (0.55-1.30); GLOMERULAR FILTRATION RATE 22.8 (>45); POTASSIUM SERUM 4.7 MMOL/L (3.5-5.1)
[2024-09-29 18:34] VITALS: TEMP 97.9
== END 2024-09-29 19:13 | disposition home or self-care (01) ==
LOC: M ED 13:22
DX: S76.911A Strain of unspecified muscles, fascia and tendons at thigh level, right thigh, initial encounter (principal); N18.9 Chronic kidney disease, unspecified; D63.1 Anemia in chronic kidney disease; M86.171 Other acute osteomyelitis, right ankle and foot; Z79.82 Long term (current) use of aspirin; Z79.02 Long term (current) use of antithrombotics/antiplatelets; Z79.4 Long term (current) use of insulin; Z79.899 Other long term (current) drug therapy

== ENCOUNTER → 2024-10-12 | Outpatient (REF) | payer MEDICARE, MEDICAID ==
[2024-10-12 14:28] LABS: BASO # 0.1 10^3/uL (0.0-0.2); BASO % 0.6 % (0.0-1.0); EOS # 0.3 10^3/uL (0.0-0.5); EOS % 2.8 % (0.0-3.0); HEMATOCRIT 26.6 % (36.0-47.0); HEMOGLOBIN 8.3 g/dl (12.0-15.5); LYMPH # 1.8 10^3/uL (1.5-5.0); MEAN CORPUSCULAR HEMOGLOBIN 27.8 pg (27.0-33.0); MEAN CORPUSCULAR HGB CONC 31.2 g/dl (32.0-36.5); NEUTROPHILS # 8.9 10^3/uL (1.5-8.5); NEUTROPHILS % 72.6 % (36.0-66.0); PLATELET COUNT, AUTOMATED 413 10^3/uL (150-450); RED BLOOD COUNT 2.99 10^6/uL (4.00-5.40); WHITE BLOOD COUNT 12.2 10^3/uL (4.0-10.0)
[2024-10-12 14:52] LABS: BILIRUBIN,TOTAL 0.2 MG/DL (0.3-1.2); C REACTIVE PROTEIN QUANTITATIV 2.92 MG/DL (<1.0); CREATININE FOR GFR 2.22 MG/DL (0.55-1.30); GLOMERULAR FILTRATION RATE 23.3 (>45); TOTAL PROTEIN 6.3 G/DL (5.7-8.2)
== END ==
LOC: M SHH 13:34
PROVIDERS: ATTEND Student in an Organized Health Care Education/Training Program
DX: A49.8 Other bacterial infections of unspecified site (principal); Z16.12 Extended spectrum beta lactamase (ESBL) resistance; M85.9 Disorder of bone density and structure, unspecified; Z79.899 Other long term (current) drug therapy

== ENCOUNTER → 2024-10-12 | Outpatient (REF) | payer MEDICARE, MEDICAID ==
[2024-10-12 14:53] LABS: BILIRUBIN,TOTAL 0.2 MG/DL (0.3-1.2); CREATININE FOR GFR 2.22 MG/DL (0.55-1.30); GLOMERULAR FILTRATION RATE 23.3 (>45); POTASSIUM SERUM 5.1 MMOL/L (3.5-5.1); TOTAL PROTEIN 6.2 G/DL (5.7-8.2)
[2024-10-12 14:54] LABS: THYROID STIMULATING HORMONE 5.566 uIU/ML (0.55-4.78)
[2024-10-12 15:25] LABS: HEMOGLOBIN A1c 7.4 % (4.0-6.0)
== END ==
LOC: M SHH 13:32
PROVIDERS: ATTEND Family Medicine
DX: E11.42 Type 2 diabetes mellitus with diabetic polyneuropathy (principal); E03.9 Hypothyroidism, unspecified

== ENCOUNTER → 2024-10-20 | Outpatient (REF) | payer MEDICARE, MEDICAID ==
[2024-10-20 14:06] LABS: BASO % 0.2 % (0.0-1.0); EOS # 0.5 10^3/uL (0.0-0.5); EOS % 3.3 % (0.0-3.0); HEMATOCRIT 28.2 % (36.0-47.0); HEMOGLOBIN 8.7 g/dl (12.0-15.5); LYMPH # 2.4 10^3/uL (1.5-5.0); MEAN CORPUSCULAR HEMOGLOBIN 28.1 pg (27.0-33.0); MEAN CORPUSCULAR HGB CONC 30.9 g/dl (32.0-36.5); MONO % 7.7 % (2.0-8.0); NEUTROPHILS # 9.5 10^3/uL (1.5-8.5); NEUTROPHILS % 69.8 % (36.0-66.0); PLATELET COUNT, AUTOMATED 273 10^3/uL (150-450); WHITE BLOOD COUNT 13.6 10^3/uL (4.0-10.0)
[2024-10-20 14:32] LABS: ALBUMIN 2.1 G/DL (3.2-5.2); BILIRUBIN,TOTAL 0.2 MG/DL (0.3-1.2); C REACTIVE PROTEIN QUANTITATIV 0.77 MG/DL (<1.0); CALCIUM LEVEL 7.9 MG/DL (8.3-10.6); CREATININE FOR GFR 2.34 MG/DL (0.55-1.30); TOTAL PROTEIN 6.4 G/DL (5.7-8.2)
== END ==
LOC: M SHH 13:23
PROVIDERS: ATTEND Student in an Organized Health Care Education/Training Program
DX: M86.9 Osteomyelitis, unspecified (principal); A49.8 Other bacterial infections of unspecified site; Z16.12 Extended spectrum beta lactamase (ESBL) resistance

== ENCOUNTER → 2024-10-27 | Outpatient (REF) | payer MEDICARE, MEDICAID ==
[2024-10-27 11:43] LABS: BASO % 0.3 % (0.0-1.0); EOS # 0.5 10^3/uL (0.0-0.5); EOS % 4.1 % (0.0-3.0); HEMATOCRIT 26.2 % (36.0-47.0); HEMOGLOBIN 7.9 g/dl (12.0-15.5); LYMPH % 15.5 % (24.0-44.0); MEAN CORPUSCULAR HEMOGLOBIN 27.1 pg (27.0-33.0); MEAN CORPUSCULAR HGB CONC 30.2 g/dl (32.0-36.5); MONO # 1.2 10^3/uL (0.0-0.8); MONO % 9.2 % (2.0-8.0); NEUTROPHILS % 70.3 % (36.0-66.0); PLATELET COUNT, AUTOMATED 269 10^3/uL (150-450); RED BLOOD COUNT 2.91 10^6/uL (4.00-5.40); WHITE BLOOD COUNT 12.8 10^3/uL (4.0-10.0)
[2024-10-27 11:59] LABS: BILIRUBIN,TOTAL 0.3 MG/DL (0.3-1.2); C REACTIVE PROTEIN QUANTITATIV 2.26 MG/DL (<1.0); CALCIUM LEVEL 7.8 MG/DL (8.3-10.6); CREATININE FOR GFR 2.46 MG/DL (0.55-1.30); GLOMERULAR FILTRATION RATE 20.7 (>45); POTASSIUM SERUM 4.8 MMOL/L (3.5-5.1); TOTAL PROTEIN 5.7 G/DL (5.7-8.2)
== END ==
LOC: M SHH 11:05
PROVIDERS: ATTEND Student in an Organized Health Care Education/Training Program
DX: M86.9 Osteomyelitis, unspecified (principal); A49.8 Other bacterial infections of unspecified site; Z16.12 Extended spectrum beta lactamase (ESBL) resistance

== ENCOUNTER → 2024-10-31 | Outpatient (REF) | payer MEDICARE, MEDICAID ==
[2024-10-31 15:06] LABS: BASO % 0.3 % (0.0-1.0); EOS # 0.4 10^3/uL (0.0-0.5); EOS % 3.7 % (0.0-3.0); HEMATOCRIT 26.6 % (36.0-47.0); HEMOGLOBIN 8.4 g/dl (12.0-15.5); LYMPH # 2.2 10^3/uL (1.5-5.0); LYMPH % 18.8 % (24.0-44.0); MEAN CORPUSCULAR HEMOGLOBIN 28.2 pg (27.0-33.0); MEAN CORPUSCULAR HGB CONC 31.6 g/dl (32.0-36.5); MEAN CORPUSCULAR VOLUME 89.3 fl (80.0-96.0); MONO # 0.8 10^3/uL (0.0-0.8); MONO % 7.1 % (2.0-8.0); NEUTROPHILS # 8.2 10^3/uL (1.5-8.5); NEUTROPHILS % 69.3 % (36.0-66.0); PLATELET COUNT, AUTOMATED 311 10^3/uL (150-450); RED BLOOD COUNT 2.98 10^6/uL (4.00-5.40); WHITE BLOOD COUNT 11.8 10^3/uL (4.0-10.0)
[2024-10-31 15:37] LABS: ALBUMIN 2.2 G/DL (3.2-5.2); BILIRUBIN,TOTAL 0.3 MG/DL (0.3-1.2); C REACTIVE PROTEIN QUANTITATIV 3.59 MG/DL (<1.0); CALCIUM LEVEL 7.7 MG/DL (8.3-10.6); CREATININE FOR GFR 2.59 MG/DL (0.55-1.30); GLOMERULAR FILTRATION RATE 19.5 (>45); POTASSIUM SERUM 4.8 MMOL/L (3.5-5.1); TOTAL PROTEIN 5.9 G/DL (5.7-8.2)
== END ==
LOC: M SHH 14:24
PROVIDERS: ATTEND Student in an Organized Health Care Education/Training Program
DX: M86.9 Osteomyelitis, unspecified (principal); Z16.12 Extended spectrum beta lactamase (ESBL) resistance; A49.8 Other bacterial infections of unspecified site

== ENCOUNTER → 2025-05-03 | Outpatient (CLI) | payer MEDICARE, MEDICAID ==
[~2025-05-03] MED LIST changes: -EZET10TA21 PO; +EZET10TA57 PO; +METF-1201 PO; -METF-723 PO; -PREG25CA PO; +PREG25CA63 PO; -VANC-7 IM; +VANC1VIA IM
[2025-05-03 12:09] LABS: BASO # 0.1 10^3/uL (0.0-0.2); BASO % 0.3 % (0.0-1.0); EOS # 0.4 10^3/uL (0.0-0.5); EOS % 2.5 % (0.0-3.0); LYMPH # 2.0 10^3/uL (1.5-5.0); LYMPH % 13.7 % (24.0-44.0); MONO # 1.1 10^3/uL (0.0-0.8); MONO % 7.5 % (2.0-8.0); NEUTROPHILS # 11.1 10^3/uL (1.5-8.5); NEUTROPHILS % 75.5 % (36.0-66.0); PLATELET COUNT, AUTOMATED 310 10^3/uL (150-450)
[2025-05-03 12:40] LABS: FREE T4 1.0 NG/DL (0.89-1.76)
[2025-05-03 12:48] LABS: ALT/SGPT 30.0 U/L (7.0-40); AST/SGOT 18.0 U/L (<34); C REACTIVE PROTEIN QUANTITATIV 3.02 MG/DL (<1.0); CALCIUM LEVEL 8.1 MG/DL (8.3-10.6); CARBON DIOXIDE LEVEL 32.0 MMOL/L (20-31); CHLORIDE LEVEL 100.0 MMOL/L (98-107); CREATININE FOR GFR 3.36 MG/DL (0.55-1.30); GLOMERULAR FILTRATION RATE 14.2 (>39); POTASSIUM SERUM 4.9 MMOL/L (3.5-5.1); SODIUM LEVEL 142.0 MMOL/L (136-145)
[2025-05-03 17:52] LABS: ESTIMATED AVERAGE GLUCOSE 229.0 MG/DL (60-110)
== END ==
LOC: M LAB 11:42
PROVIDERS: ATTEND Student in an Organized Health Care Education/Training Program
DX: E11.42 Type 2 diabetes mellitus with diabetic polyneuropathy (principal); E03.9 Hypothyroidism, unspecified